=== PATIENT | female | born 1960 | race Caucasian/White ===

== ENCOUNTER → 2020-04-20 06:24 | Outpatient (CLI) | payer MEDICARE, SELFPAY ==
[2020-04-20 19:10] LABS: SARS-CoV-2 RNA PCR Negative
== END ==
PROVIDERS: Family Provider Family Medicine; PCP Family Medicine; Visit Provider Internal Medicine Gastroenterology
DX: Z01.812 Encounter for preprocedural laboratory examination (principal); Z20.822 Contact with and (suspected) exposure to COVID-19
CPT/HCPCS: C9803; U0003; U0005

== ENCOUNTER 2020-04-24 01:14 | Day surgery (SDC) | payer MEDICARE, SELFPAY ==
[2020-04-01 11:57] VITALS: BMI 34.8
[2020-04-24 06:44] VITALS: BP 143/84; PULSE 73; RESP 20; TEMP 36.7; O2SAT 98; BMI 34.4
[2020-04-24] MEDS: LACTATED RINGERS 1,000 ML 150 ML IV CONT (06:54)
--- NOTE | 2020-04-24 07:23 | WPDANESEPPF ---
Anes - Initial Pre Proc Eval Procedure: Operation Date: 04/24/20 08:00 Proposed Procedures p Screening Colonoscopy - Jay Dickinson MD Date/Time: 04/24/20 07:23 Surgeon: Jay Dickinson MD Pre Op Diagnosis: Neoplasm Screening Patient Data Age: 59 Gender: F Height: 5 ft 5 in Weight: 93.8 kg Last Vital Signs Temp 98.1 F 04/24/20 06:44 Pulse 73 04/24/20 06:44 Resp 20 04/24/20 06:44 BP 143/84 H 04/24/20 06:44 Pulse Ox 98 04/24/20 06:44 Allergies Allergy/AdvReac Type Severity Reaction Status Date / Time hydromorphone Allergy Unknown Rash Verified 04/24/20 06:43 terbinafine Allergy Unknown Rash Verified 04/24/20 06:43 Home Medications Medication Instructions Recorded Confirmed Type calcium carbonate 600 mg calcium 600 mg PO DAILY 02/02/19 04/09/20 History (1,500 mg) tablet cinnamon bark 500 mg capsule 1,000 mg PO DAILY cap 02/02/19 04/09/20 History bupropion HCl 300 mg 24 hr tablet, 300 mg PO QAM #30 tablet 01/01/20 04/09/20 Rx extended release simvastatin 40 mg tablet 40 mg PO DAILY #30 tablet 02/06/20 04/09/20 Rx escitalopram oxalate 10 mg tablet See Rx Instructions .ROUTE 03/11/20 04/09/20 Rx .COMPLEX #90 tablet aspirin 325 mg PO DAILY 04/01/20 04/09/20 History gabapentin 1,000 mg PO BID 04/01/20 04/09/20 History loratadine [Claritin] 10 mg PO DAILY 04/01/20 04/09/20 History triamcinolone acetonide 0.05 % 1 applic TOPICAL DAILY #15 g 04/02/20 04/09/20 Rx topical ointment hydrocodone 5 mg-acetaminophen 325 1 - 2 tablet PO Q4-6H PRN #180 04/18/20 Rx mg tablet tablet sodium,potassium,mag sulfates 17.5 See Rx Instructions PO .COMPLEX 04/18/20 Rx gram-3.13 gram-1.6 gram oral soln #354 ml Patient hx anesthesia problems: none Family hx anesthesia problems: none PMFSH Past Medical History Medical History BMI 33.0-33.9,adult BMI 34.0-34.9,adult Decreased libido Depression GERD (gastroesophageal reflux disease) Heart attack Heart disease Neuropathy GRANT (obstructive sleep apnea) GRANT (obstructive sleep apnea) Screen for colon cancer Screening mammogram for high-risk patient Tobacco abuse Surgical History Surgical History H/O heart artery stent S/P bladder repair S/P S/P laparoscopic cholecystectomy S/P partial hysterectomy Family History Family History Mother Cerebrovascular accident Family history of lung cancer Grandparent Diabetes mellitus Father Family history of cardiovascular disease Other Hypertension Social History Social History Smoking packs per day: 1 Smoking cigarettes per day: 20.0 Years smoked: 45 Smoking pack-years: 45.00 Tobacco type: cigarettes Alcohol intake: never Alcohol use details: Seldom Wine Anes - Eval Final PreProcedure Day of Procedure 04/24/20 07:23 Patient weight: obese Heart: regular rate and rhythm Lungs: clear to auscultation Airway: Mallampati scale class III Neurological: alert and oriented Last oral intake: >/= 8 hours ASA classification: III Emergent: no Anesthetic plan: proceed Anesthesia type and monitoring: general GIVS and standard monitoring Informed Consent: The patient's anesthetic plan and its attendant risks and benefits were discussed with the patient/family/POA. Questions were solicited and answers provided to the satisfaction of the patient/family/POA.
--- NOTE | 2020-04-24 07:58 | PM.HPGS ---
History of Present Illness History of Present Illness Consent: Risks, benefits, and alternatives have been discussed and questions answered. Patient agrees to proceed with procedure. Chief complaint: Neoplasm Screening Narrative: Karen Stuart is a 59 year old female with intermittent loose stools mostly after eating for a year, had GB removed 20 years ago. It is not bad for her to take a med. This is her first colonoscopy Review of Systems Constitutional: Constitutional: Denies headache(s) and Denies weakness Eyes: Eyes: Denies blurry vision ENT: Reports Normal hearing present, Denies headache(s) and Denies neck pain Cardiovascular: Cardiovascular: Denies chest pain and Denies dyspnea Respiratory: Respiratory: Denies dyspnea Gastrointestinal: Gastrointestinal: Reports no additional gastrointestinal complaints Genitourinary: Genitourinary: Denies dysuria Musculoskeletal: Musculoskeletal: Denies neck pain Integumentary/Breasts: Skin/Breast: Denies dry skin Neurologic: Reports Normal hearing present, Denies headache(s) and Denies weakness Psychiatric: Psychiatric: Denies anxiety Endocrine: Endocrine: Denies change in body appearance Hematologic/Lymphatic: Hematologic/Lymphatic: Denies easy bleeding Allergic/Immunologic: Allergic/Immunologic: Denies urticaria PMFSH Past Medical History Medical History BMI 33.0-33.9,adult BMI 34.0-34.9,adult Decreased libido Depression GERD (gastroesophageal reflux disease) Heart attack Heart disease Neuropathy GRANT (obstructive sleep apnea) GRANT (obstructive sleep apnea) Screen for colon cancer Screening mammogram for high-risk patient Tobacco abuse Surgical History Surgical History H/O heart artery stent S/P bladder repair S/P S/P laparoscopic cholecystectomy S/P partial hysterectomy Family History Family History Mother Cerebrovascular accident Family history of lung cancer Grandparent Diabetes mellitus Father Family history of cardiovascular disease Other Hypertension Social History Social History Smoking packs per day: 1 Smoking cigarettes per day: 20.0 Years smoked: 45 Smoking pack-years: 45.00 Tobacco type: cigarettes Alcohol intake: never Alcohol use details: Seldom Wine Meds Home Medications and Allergies Home Medications Medication Instructions Recorded Confirmed Type calcium carbonate 600 mg calcium 600 mg PO DAILY 02/02/19 04/09/20 History (1,500 mg) tablet cinnamon bark 500 mg capsule 1,000 mg PO DAILY cap 02/02/19 04/09/20 History bupropion HCl 300 mg 24 hr tablet, 300 mg PO QAM #30 tablet 01/01/20 04/09/20 Rx extended release simvastatin 40 mg tablet 40 mg PO DAILY #30 tablet 02/06/20 04/09/20 Rx escitalopram oxalate 10 mg tablet See Rx Instructions .ROUTE 03/11/20 04/09/20 Rx .COMPLEX #90 tablet aspirin 325 mg PO DAILY 04/01/20 04/09/20 History gabapentin 1,000 mg PO BID 04/01/20 04/09/20 History loratadine [Claritin] 10 mg PO DAILY 04/01/20 04/09/20 History triamcinolone acetonide 0.05 % 1 applic TOPICAL DAILY #15 g 04/02/20 04/09/20 Rx topical ointment hydrocodone 5 mg-acetaminophen 325 1 - 2 tablet PO Q4-6H PRN #180 04/18/20 Rx mg tablet tablet sodium,potassium,mag sulfates 17.5 See Rx Instructions PO .COMPLEX 04/18/20 Rx gram-3.13 gram-1.6 gram oral soln #354 ml Allergies Allergy/AdvReac Type Severity Reaction Status Date / Time hydromorphone Allergy Unknown Rash Verified 04/24/20 06:43 terbinafine Allergy Unknown Rash Verified 04/24/20 06:43 Vital Signs Vital Signs - 24 hr 04/24/20 06:44 Temperature 98.1 F Pulse Rate 73 Respiratory Rate 20 Blood Pressure 143/84 H Pulse Oximetry 98 Exam Const: General: comfortable and no acute distre
[2020-04-24 08:25] VITALS: BP 91/48; PULSE 65; RESP 18; O2SAT 93
[2020-04-24 08:35] VITALS: BP 94/54; PULSE 64; RESP 18; O2SAT 95
[2020-04-24 08:45] VITALS: BP 113/57; PULSE 68; RESP 20; O2SAT 96
== END 2020-04-24 09:06 | disposition home or self-care (01) ==
PROVIDERS: Family Provider Family Medicine; PCP Family Medicine; Visit Provider Internal Medicine Gastroenterology
PROC: 0DJD8ZZ Inspection of Lower Intestinal Tract, Via Natural or Artificial Opening Endoscopic (ICD-10-PCS; CPT 45378; principal; 2020-04-24 08:00)
DX: Z12.11 Encounter for screening for malignant neoplasm of colon (principal); K58.0 Irritable bowel syndrome with diarrhea; D12.0 Benign neoplasm of cecum; D12.2 Benign neoplasm of ascending colon; D12.8 Benign neoplasm of rectum; K21.9 Gastro-esophageal reflux disease without esophagitis; I25.2 Old myocardial infarction; G90.9 Disorder of the autonomic nervous system, unspecified; G47.33 Obstructive sleep apnea (adult) (pediatric); F17.210 Nicotine dependence, cigarettes, uncomplicated; F32.9 Major depressive disorder, single episode, unspecified; Z95.5 Presence of coronary angioplasty implant and graft; Z90.49 Acquired absence of other specified parts of digestive tract; Z90.711 Acquired absence of uterus with remaining cervical stump; K64.8 Other hemorrhoids
CPT/HCPCS: 45385; 45380; 88305; C9803; J7120; U0003; U0005

== ENCOUNTER 2020-04-25 13:49 | Outpatient (CLI) | payer MEDICARE, SELFPAY ==
--- NOTE | ~2020-04-25 | XR_ITS ---
EXAMINATION: XR cervical spine 4-5V DATE: 04/25/2020 15:00 INDICATION: Neck pain. TECHNIQUE: 5 views of cervical spine were obtained. COMPARISON: None. FINDINGS: There is 4 degrees levocurvature of cervical spine. Vertebral body heights and intervertebr al disc heights are normal. There is multilevel mild facet joint osteoarthritis. No central canal lisa nosis or prevertebral soft tissue swelling. IMPRESSION: 1. Mild cervical spondylosis. Reviewed, dictated and finalized at location A. LITIES FLIGHT CHECK PILOT
--- NOTE | ~2020-04-25 | XR_ITS ---
EXAMINATION: XR lumbar spine 6V w bending DATE: 04/25/2020 15:00 INDICATION: Lumbar neuropathy. TECHNIQUE: 9 views of lumbar spine including flexion and extension views were obtained. COMPARISON: CT abdomen and pelvis 07/30/2015 FINDINGS: There is 13 degrees levoscoliosis of thoracolumbar spine. There are changes of anterior fus ion procedure at L5-S1 with interbody device and anterior plate and screws. There is 2 mm anterolisth esis of L4 on L5. The spine is hypomobile with flexion and extension. Vertebral body heights are norm al. There is mildly decreased disc height at L4-L5. There is severe bilateral facet joint osteoarthri tis at L4-L5. IMPRESSION: 1. Mild lumbar spondylosis. 2. Anterior fusion procedure at L5-S1. 3. Thoracolumbar levoscoliosis. Reviewed, dictated and finalized at location A. ING TELEGRAM PERFORMER
== END 2020-04-25 13:50 ==
LOC: MICIMG 13:50
PROVIDERS: PCP Family Medicine; Visit Provider Family Medicine
DX: M47.25 Other spondylosis with radiculopathy, thoracolumbar region (principal); M48.05 Spinal stenosis, thoracolumbar region; Z98.1 Arthrodesis status; M41.9 Scoliosis, unspecified; M47.23 Other spondylosis with radiculopathy, cervicothoracic region; M48.03 Spinal stenosis, cervicothoracic region
CPT/HCPCS: 72050; 72114

== ENCOUNTER 2020-05-07 08:30 | Outpatient (CLI) | payer MEDICARE, SELFPAY ==
--- NOTE | ~2020-05-07 | DEXA_ITS ---
Bone Density Report Name: Karen Stuart Age: 59 Sex: Female Ethnicity: White Date of : 1960 Indication: postmenopausal; hysterectomy; Referring Provider: Genia Levin Study: Bone densitometry was performed. Exam Date: May 07, 2020 Accession number: [id number] Bone Density: Region BMD T-score Z-score Classification AP Spine (L1-L4) 0.800 -2.2 -1.0 Osteopenia Femoral Neck (Left) 0.694 -1.4 -0.2 Osteopenia Total Hip (Left) 0.728 -1.8 -0.9 Osteopenia Total Hip Bilateral Avg 0.679 -2.2 -1.3 Osteopenia Femoral Neck (Right) 0.575 -2.5 -1.3 Osteoporosis Total Hip (Right) 0.629 -2.6 -1.7 Osteoporosis World Health Organization criteria for BMD impression classify patients as: Normal (T-score at or above -1.0), Osteopenia (T-score between -1.0 and -2.5), or Osteoporosis (T-score at or below -2.5). 10-year Fracture Risk: FRAX not reported because: Some T-score for Spine Total or Hip Total or Femoral Neck at or below -2.5 Clinical Information Provided by Patient: Smokes Has used the following medications: Calcium Has the following medical conditions: Hysterectomy Patient maximum height was 65 Menopause Age: 48 No regular weight bearing exercise Does not regularly consume dairy products Drinks caffeinated beverages Onset of menses at age 15 Number of children 1 Impression: The patient has osteoporosis, based on the Right Total Hip T-score. The patient has risk factors, including: smoking. Discussion: INCREASED RISK OF FRACTURE. BONE DENSITY IS UNDESIRABLY LOW AT ONE OR MORE SKELETAL SITES, CONSISTENT WITH POSTMENOPAUSAL OSTEOPOROSIS. This patient's lowest T-score meets the World Health Organization's (WHO) criteria for osteoporosis at one or more sites (T-score -2.5 or below). In untreated patients, the risk of osteoporotic fracture increases approximately two-fold for each 1.0 SD decrease in T-score. Low bone density is not the only risk factor for fracture; also consider factors such as patient's age, frailty or poor health, risk of falling, risk of injury, previous osteoporotic fracture, family history of osteoporosis, cigarette smoking, low body weight, etc. Not everyone with low bone mineral density has osteoporosis; osteomalacia and other metabolic bone disorders should also be considered. Patients who have osteoporosis should be evaluated for specific diseases and conditions (secondary causes) that may cause or contribute to bone loss. The [place] [employer]ocrinologists (AACE) and National Osteoporosis Foundation (NOF) recommend pharmacologic intervention for all postmenopausal women whose T-score is in this range. The patient should follow a healthful lifestyle (good nutrition with adequate calcium and vitamin D, and appropriate weight-bearing exercise). Follow-Up: Consider a repeat BMD an
--- NOTE | ~2020-05-07 | MM_ITS ---
EXAMINATION: MM screening quita BI w bertha HISTORY: Screening mammogram TECHNIQUE: Craniocaudal and mediolateral oblique 3-D tomosynthesis images were obtained and synthetic 2-D images were generated. CAD analysis was submitted and interpreted. COMPARISON: No prior mammogram is available for comparison at this institution. BREAST PARENCHYMAL COMPOSITION: There are scattered areas of fibroglandular density. FINDINGS: There is no evidence of suspicious mass, calcification, or architectural distortion to sugg est malignancy in either breast. There has been no suspicious interval change. IMPRESSION: 1. No mammographic evidence of malignancy. 2. Recommend routine screening mammography in one year. BI-RADS Category 1: Negative Reviewed, dictated and finalized at location A. R AND DELIVERY NURSE
== END 2020-05-07 08:31 | disposition home or self-care (01) ==
PROVIDERS: Family Provider Family Medicine; PCP Family Medicine; Visit Provider Physician Assistant Medical
DX: Z12.31 Encounter for screening mammogram for malignant neoplasm of breast (principal); Z78.0 Asymptomatic menopausal state; M85.89 Other specified disorders of bone density and structure, multiple sites; M81.0 Age-related osteoporosis without current pathological fracture
CPT/HCPCS: 77063; 77067; 77080

== ENCOUNTER 2020-08-01 11:33 | Outpatient (CLI) | payer MEDICARE, SELFPAY ==
--- NOTE | ~2020-08-01 | XR_ITS ---
EXAMINATION: XR abdomen/kub 1V EXAM DATE: 08/01/2020 11:48 INDICATION: Abdominal pain. Sharp pain in central lower lumbar radiates around to anterior, hx of hys terectomy, bladder lift surgery, cholecystectomy 's, 2 spinal fusions 2007, hx chronic low back harsh n, kub to R/O kidney stones. TECHNIQUE: Frontal projection of the upper abdomen, frontal projection lower abdomen/pelvis for inter pretation. There is no prior study for comparison. FINDINGS: There are cholecystectomy clips. There is moderate amount of colonic stool and gas. No small bowel dilation, nonobstructive bowel gas pattern. Calcifications in the pelvis are believed to be phleboliths. There are no suspicious calcifications identified. There is no organomegaly suspe cted. Mild lumbar dextroscoliosis. L5-S1 anterior fusion plate. IMPRESSION: Moderate amount of colonic stool. Reviewed, dictated and finalized at location B.
== END 2020-08-01 11:34 ==
PROVIDERS: PCP Family Medicine; Visit Provider Nurse Practitioner Family
DX: R10.9 Unspecified abdominal pain (principal); M54.5 Low back pain
CPT/HCPCS: 74018

== ENCOUNTER → 2020-09-09 06:47 | Outpatient (CLI) | payer MEDICARE, SELFPAY ==
[2020-09-09 16:50] LABS: SARS-CoV-2 RNA PCR Negative
== END ==
PROVIDERS: PCP Family Medicine; Visit Provider Nurse Practitioner Family
DX: R68.89 Other general symptoms and signs (principal); Z20.822 Contact with and (suspected) exposure to COVID-19
CPT/HCPCS: C9803; U0003; U0005

== ENCOUNTER 2020-09-30 16:10 | Outpatient (CLI) | payer MEDICARE, SELFPAY ==
--- NOTE | ~2020-09-30 | XR_ITS ---
XR hand RT min 3V DATE: 09/30/2020 16:46 INDICATION: Right hand pain TECHNIQUE: 3 views COMPARISON: None FINDINGS: Diffuse osteopenia. There is osteoarthritic change at the interphalangeal joints. No fracture or dislocation, periosteal reaction or bone destruction is detected. IMPRESSION: Osteopenia Osteoarthritic change at the interphalangeal joints Reviewed, dictated and finalized at location B.
== END 2020-09-30 16:11 ==
PROVIDERS: PCP Family Medicine; Visit Provider Nurse Practitioner Family
DX: M79.641 Pain in right hand (principal); M85.841 Other specified disorders of bone density and structure, right hand
CPT/HCPCS: 73130

== ENCOUNTER 2020-10-10 13:37 | Outpatient (CLI) | payer MEDICARE, SELFPAY ==
--- NOTE | ~2020-10-10 | XR_ITS ---
XR hip BI 2V w AP pelvis DATE: 10/10/2020 13:52 INDICATION: Chronic right hip pain TECHNIQUE: AP pelvis. AP and lateral views of each hip COMPARISON: 11/08/2015 left hip FINDINGS: Status post anterior spinal fusion at L5-S1. The pubic symphysis and sacroiliac joints are intact. No pelvic fracture or bone destruction is evide nt. No fracture, dislocation, avascular necrosis or bone destruction of either hip is evident. Hip joint spaces appear symmetric and relatively preserved. IMPRESSION: Status post anterior fusion at L5-S1; otherwise unremarkable examination Reviewed, dictated and finalized at location A. IMPRESSION: Status post anterior fusion at L5-S1; otherwise unremarkable examin ation
== END 2020-10-10 13:38 | disposition home or self-care (01) ==
PROVIDERS: PCP Family Medicine; Visit Provider Family Medicine
DX: M25.551 Pain in right hip (principal); M25.552 Pain in left hip; Z98.1 Arthrodesis status
CPT/HCPCS: 73521

== ENCOUNTER 2021-01-07 01:09 | Day surgery (SDC) | payer MEDICARE, SELFPAY ==
[2020-12-30 10:38] VITALS: BMI 34.7
[2021-01-07 09:34] VITALS: BP 113/70; PULSE 70; RESP 18; TEMP 36.1; O2SAT 97
--- NOTE | 2021-01-07 09:37 | WPDANESEPPF ---
Anes - Initial Pre Proc Eval Procedure: Operation Date: 01/07/21 10:45 Proposed Procedures p Esophagogastroduodenoscopy - Jay Dickinson MD Date/Time: 01/07/21 09:37 Surgeon: Jay Dickinson MD Pre Op Diagnosis: abdominal pain, nausea Patient Data Age: 60 Gender: F Height: 1.65 m Weight: 95.7 kg Last Vital Signs Temp 36.1 C L 01/07/21 09:34 Pulse 70 01/07/21 09:34 Resp 18 01/07/21 09:34 BP 113/70 01/07/21 09:34 Pulse Ox 97 01/07/21 09:34 Allergies Allergy/AdvReac Type Severity Reaction Status Date / Time hydromorphone Allergy Unknown Rash Verified 01/07/21 09:30 terbinafine Allergy Unknown Rash Verified 01/07/21 09:30 Home Medications Medication Instructions Recorded Confirmed Type loratadine [Claritin] 10 mg PO DAILY 04/01/20 01/07/21 History aspirin 81 mg tablet,delayed 81 mg PO DAILY 05/28/20 12/30/20 History release diclofenac sodium 1 % topical gel 2 g TOPICAL QID #500 g 05/28/20 12/30/20 Rx rosuvastatin 40 mg tablet 40 mg PO DAILY 05/28/20 12/30/20 History denosumab 60 mg/mL subcutaneous 60 mg SUBCUT [id number] #1 ml 07/02/20 12/30/20 Rx syringe triamcinolone acetonide 0.5 % 1 applic TOPICAL BID PRN #15 g 07/03/20 12/30/20 Rx topical ointment lisinopril 40 mg tablet 40 mg PO DAILY 07/31/20 01/07/21 History calcium carbonate-vitamin D3 600 1 tablet PO DAILY #90 tablet 09/30/20 01/07/21 Rx mg (1,500 mg)-800 unit tablet gabapentin 300 mg capsule 600 mg PO BID #360 cap 09/30/20 01/07/21 Rx hydrocodone 5 mg-acetaminophen 325 1 - 2 tablet PO Q4-6H PRN #180 12/16/20 12/30/20 Rx mg tablet tablet escitalopram oxalate 10 mg PO DAILY 12/30/20 12/30/20 History bupropion HCl 300 mg 24 hr tablet, 300 mg PO QAM #30 tablet 01/06/21 01/07/21 Rx extended release Patient hx anesthesia problems: none Family hx anesthesia problems: none Results Review: All pre-operative results and documents have been reviewed as part of the pre-operative evaluation. [facility] Past Medical History Medical History (Updated 01/07/21 @ 09:40 by Balbir Ghotra MD) Adenomatous colon polyp Bilateral cataracts BMI 33.0-33.9,adult BMI 34.0-34.9,adult BMI 34.0-34.9,adult BMI 35.0-35.9,adult BMI 36.0-36.9,adult BMI over 35 CAD in [place] artery Chronic diarrhea Chronic narcotic use Constipation due to opioid therapy Decreased libido Depression Dermatitis Elevated glucose Essential (primary) hypertension Exocrine pancreatic insufficiency GERD (gastroesophageal reflux disease) Heart attack Heart disease Hip pain, bilateral Low back pain Low vitamin D level Lymphocytosis MDD (major depressive disorder), single episode, moderate Medial epicondylitis, left elbow Mixed hyperlipidemia Neuropathy GRANT (obstructive sleep apnea) GRANT (obstructive sleep apnea) Osteoporosis Pre-diabetes Right wrist pain Screen for colon cancer Screening mammogram for high-risk patient Tobacco abuse Surgical History Surgical History H/O heart artery stent H/O spinal fusion S/P bladder repair S/P S/P laparoscopic cholecystectomy S/P partial hysterectomy Family History Family History Mother Cerebrovascular accident Family history of lung cancer Grandparent Diabetes mellitus Father Family history of cardiovascular disease Sibling Cerebral palsy Other Hypertension Social History Social History Smoking packs per day: 0.75 Smoking cigarettes per day: 15.0 Years smoked: 46 Smoking pack-years: 34.50 Smoking status: Current every day smoker Tobacco type: cigarettes Second hand tobacco smoke exposure: No Alcohol intake: never Drinks per week: 0 Alcohol use details: occasional wine Substance use: never Substance use type: opiates Other substanc
[2021-01-07] MEDS: LACTATED RINGERS 1,000 ML 150 ML IV CONT (09:45)
--- NOTE | 2021-01-07 11:19 | WPDHPUPDATE1 ---
History and Physical Update Update Date/Time: 01/07/21 11:19 History and Physical has been reviewed, including an updated exam of the patient. There are NO changes in the patient's condition. Risks, benefits, and alternatives have been discussed and questions answered. Patient agrees to proceed with procedure.
[2021-01-07 11:32] VITALS: BP 81/58; PULSE 61; RESP 18; O2SAT 96
[2021-01-07 11:42] VITALS: BP 118/64; PULSE 72; RESP 22; O2SAT 97
[2021-01-07 11:52] VITALS: BP 122/72; PULSE 61; RESP 15; O2SAT 98
== END 2021-01-07 12:14 | disposition home or self-care (01) ==
PROVIDERS: PCP Family Medicine; Visit Provider Internal Medicine Gastroenterology
PROC: 0DJ08ZZ Inspection of Upper Intestinal Tract, Via Natural or Artificial Opening Endoscopic (ICD-10-PCS; CPT 43235; principal; 2021-01-07 10:45)
DX: K29.70 Gastritis, unspecified, without bleeding (principal); K21.9 Gastro-esophageal reflux disease without esophagitis; I25.10 Atherosclerotic heart disease of native coronary artery without angina pectoris; K59.03 Drug induced constipation; I11.9 Hypertensive heart disease without heart failure; K86.81 Exocrine pancreatic insufficiency; E55.9 Vitamin D deficiency, unspecified; E78.2 Mixed hyperlipidemia; G47.33 Obstructive sleep apnea (adult) (pediatric); M81.0 Age-related osteoporosis without current pathological fracture; R73.03 Prediabetes; F32.1 Major depressive disorder, single episode, moderate; I25.2 Old myocardial infarction; Z98.1 Arthrodesis status; Z95.5 Presence of coronary angioplasty implant and graft; F17.210 Nicotine dependence, cigarettes, uncomplicated; Z79.891 Long term (current) use of opiate analgesic; E66.9 Obesity, unspecified; Z79.82 Long term (current) use of aspirin; Z68.35 Body mass index [BMI] 35.0-35.9, adult
CPT/HCPCS: 43239; 88305; J2704; J7120

== ENCOUNTER 2021-01-16 08:18 | Outpatient (CLI) | payer MEDICARE, SELFPAY ==
--- NOTE | ~2021-01-16 | CT_ITS ---
EXAMINATION: CT abdomen pelvis w con DATE: 01/16/2021 09:05 INDICATION: Low abdominal pain. TECHNIQUE: Computed tomography (CT) of the abdomen and pelvis was performed with 100 mL Omnipaque 350 intravenous contrast. Automated exposure control and iterative reconstruction technique were employe d. The dose-length product was 926.16 mGy-cm. COMPARISON: CT abdomen and pelvis 07/30/2015 FINDINGS: The visualized portions of the lung bases demonstrate a calcified right lower lobe nodule, consistent with old granulomatous disease. No pleural effusion. The heart size is normal. No pericard ial effusion. There is a small sliding hiatal hernia. There are cysts in the liver measuring up to 8 mm. There is chronic mild intrahepatic biliary duct dilatation. The common duct is dilated to 15 mm, unchanged from 07/30/2015. There are changes of cholecystectomy. The spleen is normal. Pancreas divisu m is noted. The adrenal glands and kidneys are normal. There are no dilated loops of bowel. The appen dulce maria is normal. There are no pathologically enlarged lymph nodes. There is no free intraperitoneal flu id. There is calcified atherosclerosis of the aorta and many of the other arteries. There is severe s tenosis of right common iliac artery origin. There are changes of anterior fusion procedure at L5-S1. There is mild thoracolumbar spondylosis. IMPRESSION: 1. 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 Reviewed, dictated and finalized at location [facility]. [employer] IMPRESSION: 1. 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
[2021-01-16 08:53] LABS: Estimated Glomerular Filt Rate > 60
== END 2021-01-16 08:19 | disposition home or self-care (01) ==
LOC: ANHIMG 08:23
PROVIDERS: PCP Family Medicine; Visit Provider Internal Medicine Gastroenterology
DX: R10.30 Lower abdominal pain, unspecified (principal); K52.9 Noninfective gastroenteritis and colitis, unspecified; I70.8 Atherosclerosis of other arteries
CPT/HCPCS: 74177; Q9967

== ENCOUNTER 2021-01-29 13:00 | Outpatient (RCR) | payer MEDICARE, SELFPAY ==
--- NOTE | 2020-11-07 13:50 | OTOPEVAL ---
OCCUPATIONAL THERAPY INITIAL EVALUATION REPORT 11/07/20 Carol presents today ~3 months following injury to the dorsal buckley of the right middle finger. She reports that the tendon no longer is subluxing, but she continues to have pain and swelling that restricts her ability to use her right hand. Today a relative motion orthosis was fabricated to hold the MCP joint of the right middle finger in extension relative to the other MCP joints. A compression glove was also issued to help with swelling. Patient reports pain relief from just 10 minutes of wear with the glove and splint. Recommend that she follows up 1x/week for 4 weeks to assess the efficacy of this intervention as well as progressing her HEP as tolerated. Thank you for referring Karen [facility] to [facility] The patient is scheduled to be seen for therapy?1x/week for 4 weeks. Please review, sign, date and return this plan of care ARIS. I agree with and certify that the following plan of care is medically necessary. Referring Physician Date Referring Provider: Froylan Urena MD *OT Outpatient Evaluation Outpatient Past Medical History Past Medical History Source of Past Medical History Recalled from Previous Visit, Confirmed with Patient/Family Neurological History Hx Migraine Yes Hx Other Neurological Disorders Yes: Neuropathy Cardiovascular History Hx Coronary Stent Yes: x2 Hx Hypercholesterolemia Yes Hx Myocardial Infarction Yes Respiratory History Hx Sleep Apnea Yes: Does not use CPAP Gastrointestinal History Hx Cholecystectomy Yes Hx Gastroesophageal Reflux Disease Yes Hx Hernia Yes: Umbilical Hx Other Gastrointestinal Disorders Yes: Diarrhea, Constipation, Lower Abdominal Pain Genitourinary History Hx Bladder Surgery Yes: Lifted Musculoskeletal History Hx Arthritis Yes: Back Hx Back Pain Yes Hx Orthopedic Surgery Yes: L4- L5 Fusion Hematological History Hx Hematological Disorders No Significant History Endocrine History Hx Other Endocrine Disorders Yes: Goiter HEENT History Hx Sinus Problems Yes Integumentary History Hx Skin Disorders No Significant History Reproductive History Hx Section Yes Hx Hysterectomy Yes Hx Tubal Ligation Yes Psychosocial History Hx Depression Yes Pain History Has Past Pain Affected Your Daily Life Yes History of Long-Term Prescription Pain Yes Medication Use (Opiates) Anesthesia History Hx Post-Op Nausea/Vomiting Yes Other History Hx Implanted Device Yes: Heart Stents Evaluation Information Problem Diagnosis Extensor buckley rupture right 3rd MCP joint Onset 08/29/20 Subjective Information Patient reports functional Query Text:As Reported By Patient/ limitations with using the Family
--- NOTE | 2020-11-15 12:34 | PCOTNOTE ---
Patient called & cancelled scheduled appointment this date due to waking up with a sore throat.
--- NOTE | 2020-11-28 12:46 | PTOPEVAL ---
PHYSICAL THERAPY EVALUATION AND PLAN OF CARE 11-28-20 Thank you for referring Karen Stuart to [facility], for the diagnosis of lumbar radiculopathy.? Carol is scheduled to be seen for therapy? 2 x/week for 5 weeks. Her treatment plan includes aquatic therapy, for the buoyancy effects of the water and ease of movement for strengthening and flexibility. Please review, sign, date and return this plan of care ARIS. I agree with and certify that the following plan of care is medically necessary. Referring Physician Date Referring Provider: Magdy Alexander MD PT Outpatient Evaluation Document 11/28/20 11:05 FAB (Rec: 11/28/20 12:05 FAB [id number]) Past Medical History Source of Past Medical History Recalled from Previous Visit, Confirmed with Patient/Family Neurological History Hx Other Neurological Disorders Yes: Neuropathy in legs Cardiovascular History Hx Coronary Stent Yes: x2 Hx Hypercholesterolemia Yes Hx Myocardial Infarction Yes Respiratory History Hx Sleep Apnea Yes: Does not use CPAP Hx Other Respiratory Disorders Yes: smoker Gastrointestinal History Hx Cholecystectomy Yes Hx Gastroesophageal Reflux Disease Yes Hx Hernia Yes: ? have hernia or not- to see dr in few weeks Hx Other Gastrointestinal Disorders Yes: Diarrhea, Constipation, Lower Abdominal Pain Genitourinary History Hx Bladder Surgery Yes Musculoskeletal History Hx Arthritis Yes: neck pain Hx Back Pain Yes Hx Orthopedic Surgery Yes: back surg x3- discectomy x 2, and L4- L5 Fusion 2006 Hx Other Musculoskeletal Disorders Yes: R wrist pain; all joints hurt every morning when wake up Hematological History Hx Hematological Disorders No Significant History Endocrine History Hx Other Endocrine Disorders Yes: Goiter HEENT History Hx Sinus Problems Yes Integumentary History Hx Skin Disorders No Significant History Reproductive History Hx Section Yes Hx Tubal Ligation Yes Psychosocial History Hx Depression Yes Pain History Has Past Pain Affected Your Daily Life Yes History of Long-Term Prescription Pain Yes Medication Use (Opiates) Other History Hx Implanted Device Yes: Heart Stents Hx Other Medical Conditions Yes: have had covid vaccine Evaluation Information Problem Diagnosis lumbar radiculopathy Onset August 2020 Subjective Information chronic back pain, gradual Query Text:As Reported By Patient/ increase in pain; no recent Family injury or trauma to back; Diagnostic Tests
--- NOTE | 2020-12-05 13:11 | OTOPEVAL ---
OCCUPATIONAL THERAPY RE-EVALUATION REPORT AND DISCHARGE SUMMARY 12/05/20 Carol presents for OT re-evaluation today after wearing a custom fabricated relative motion orthosis x4 weeks to support the MCP joint of the right middle finger. She has made excellent progress with pain reduction, noting pain at worst to only 2/10 compared to 8/10 at the initial evaluation. She has some residual weakness for which a gentle strengthening program was issued. Recommend that she continue to wear the splint with hand use for another month and to complete strengthening on pain-free days only. She is currently independent with all materials and is in agreement with discharge. Discharging today with patient independent in HEP. Thank you for referring Karen Stuart to [facility]. Please review, sign, date and return this D/C Note ARIS. I agree with and certify that the following plan of care is medically necessary. Referring Physician Date Referring Provider: Froylan Urena MD *OT Outpatient Re-Evaluation Start: 11/07/20 12:32 Diagnosis Extensor buckley rupture right 3rd MCP joint Onset 08/29/20 Subjective Information Patient reports improvements Query Text:As Reported By Patient/ since beginning therapy 4 Family weeks ago. States she has no pain with starting her car and with her ROM exercises. Notes slight increase in pain at the radial aspect of the MCP joint particularly with opposition. Pain Assessment Timing of Pain Assessment Timing of Pain Assessment Re-assessment Pain Scale Pain Scale Used Numeric (1 - 10) Self Report Pain Assessment Right Finger, Middle Reported Pain Level 0 Lowest Pain Intensity 0 Greatest Pain Intensity 2 Pain Score Pain Score 0: Self Report Additional Pain Score Comments Pain reduced from 4/10 on a daily basis. Upper Extremity Range of Motion Finger Range of Motion Right Finger Range of Motion Comments Active ROM of the right hand and middle finger are WNL. Full fist and hook fist are intact. Lumbricals and interossei intact. No longer has pain or burning with active ROM. Hand Assembler Chassis/Pinch Strength Assessment Hand Left Assembler Chassis Strength (lbs) 61.33 Lateral Pinch Strength (lbs) 13.33 Palmar Pinch Strength (lbs) 8.67 Right Assembler Chassis Strength (lbs) 45.67 Lateral Pinch Strength (lbs) 11.67 Palmar Pinch Strength (lbs) 5 Hand Assembler Chassis/Pinch Strength Comments (+) pain with palmar pinching, rated at 2/10. Splint/Brace/Cast Assessment Splint and Bracing Assessment Ri
--- NOTE | 2020-12-18 13:21 | PCPTNOTE ---
Patient called & cancelled scheduled appointment this date due to having a bad headache and not feeling well.
--- NOTE | 2020-12-30 12:17 | PCPTNOTE ---
Patient called & cancelled scheduled appointment this date due to having a to attend.
--- NOTE | 2021-01-01 14:25 | PTOPEVAL ---
PHYSICAL THERAPY RE-EVALUATION AND UPDATED PLAN OF CARE 01-01-21 Refer to the clinical summary below for her status today, compared to the initial evaluation. The goals were partially achieved. PT is to continue 2x/week for 4 weeks. Thank you for referring Karen Stuart to [facility].? Please review, sign, date and return this updated plan of care [facility]. I agree with and certify that the following plan of care is medically necessary. Referring Physician Date Referring Provider: Magdy Alexander MD Document 01/01/21 13:35 FAB (Rec: 01/01/21 14:24 FAB [id number]) Assessment Status Re-evaluation Subjective Information Carol reports: like the pool Query Text:As Reported By Patient/ therapy; with land therapy-- Family massage helped get the knot out of the back; have stim unit at home, but need to get some pads; is doing her home exercises; see dr next week for follow up; Pain Assessment Timing of Pain Assessment Timing of Pain Assessment Assessment Pain Scale Pain Scale Used Numeric (1 - 10) Self Report Pain Assessment Bilateral Back Reported Pain Level 0 Pain Description Aching,Sharp Pain Frequency Chronic,Intermittent Other Pain Description R > L lumbar; R LE to toes- with activity- walk Lowest Pain Intensity 0 Greatest Pain Intensity 9 Pain Aggravating Factors Exercise/Activity,Walking Other Pain Aggravating Factors walking tolerance varies 5- 20 min Pain Behaviors Anxious,Guarding Pain Score Pain Score 0: Self Report Additional Pain Score Comments Oswestry self assessment functional score of % limitation in activity reports taking vicoden every hours Interventions Used Interventions Used By Clinicians Education,Exercise Pain Relief Interventions Used By Inactivity/Rest,Lying Supine, Patient Medication,Position Change, Sitting Other Alleviating Interventions reports taking vicoden every 6 hours, sometimes take 2 at night for sleep Lower Extremity Range of Motion General Lower Extremity Range of Motion Gross Lower Extremity Range of Motion hamstring length with supine Comments SLR R 50'/L 60' supine piriformis length with hip/knee > 90' stretch R- not reach midline-reports tighter and
--- NOTE | 2021-01-13 09:20 | PCPTNOTE ---
Patient did not show up for scheduled appointment this date. Called and spoke with Pt, she stated to have over slept. Reminded Pt of upcoming appointment on 01/16/21 @ 13:00.
--- NOTE | 2021-01-29 13:46 | PTOPEVAL ---
PHYSICAL THERAPY DISCHARGE 01-29-21 Refer to the clinical summary below, for her status today, compared to the last reevaluation. Discharge PT services. Carol is to continue with her home exercises and monitoring her posture. Thank you for referring Karen Stuart to [facility].? Please review, sign, date and return this Discharge report [facility]. I agree with and certify that the following plan of care is medically necessary. Referring Physician Date Referring Provider: Magdy Alexander MD Document 01/29/21 12:55 FAB (Rec: 01/29/21 13:42 FAB [id number]) Assessment Status Discharge Subjective Information Carol reports: therapy is Query Text:As Reported By Patient/ helping-can walk farther than Family normal, taking less pain pills ; use cane sometimes, was able to walk at [facility] about 45-60 min before leg went numb; had CT of stomach-saw results on pt portal- reports severe stenosis of artery and saw teacher lip reading and he gave me orders for doppler for legs; go see regular dr next week; has joined a fitness center that has a pool; agree to discharge from PT services and continue with her exercises. Pain Assessment Timing of Pain Assessment Timing of Pain Assessment Assessment Pain Scale Pain Scale Used Numeric (1 - 10) Self Report Pain Assessment Bilateral Back Reported Pain Level 0 Pain Description Aching,Numbness,Pulling,Sharp Pain Frequency Chronic,Intermittent Other Pain Description R leg numb to toes and cramping in thigh & groin when walk 45-60 min; Lowest Pain Intensity 0 Greatest Pain Intensity 7 Pain Aggravating Factors Exercise/Activity,Walking Other Pain Aggravating Factors housework, vaccuming, bending forward; in AM, when first get up Pain Behaviors Anxious,Guarding Pain Score Pain Score 0: Self Report Additional Pain Score Comments Oswestry self assessment functional score 36% limitation in activity level; reinforced and discussed self management of pain: heat, position change, stretching, use home TENS unit, monitor
== END 2021-01-30 13:38 | disposition home or self-care (01) ==
LOC: ANHPT 13:00
PROVIDERS: PCP Family Medicine; Referring Provider Family Medicine; Visit Provider Plastic Surgery
DX: S66.312D Strain of extensor muscle, fascia and tendon of right middle finger at wrist and hand level, subsequent encounter (principal)
CPT/HCPCS: 97014; 97018; 97110; 97113; 97140; 97161; 97165; G0283; L3933

== ENCOUNTER 2021-02-09 19:05 | Emergency (ER) | payer MEDICARE, MEDICAID, SELFPAY ==
[2021-02-09 19:17] VITALS: BP 174/89; PULSE 62; RESP 15; TEMP 36.6; O2SAT 97
--- NOTE | 2021-02-09 19:59 | PC.NURSE ---
Pt to INTAKE desk x 2 and reports feeling dizzy and light headed, VSS.
[2021-02-09 21:42] VITALS: BP 144/91; PULSE 63; RESP 17; O2SAT 99
--- NOTE | 2021-02-09 21:43 | PC.NURSE ---
ERP rinsed patients nasal cavity, clots removed, patient tolerated well.
[2021-02-09] MEDS: OXYMETAZOLINE HCL 0.05% NAS 15 ML BTL (*BKC) 1 SPRAY NASAL (21:48)
--- NOTE | 2021-02-09 22:19 | ED.EPISTAXIS ---
HPI - Epistaxis General Chief complaint: Epistaxis Stated complaint: NOSEBLEED Time Seen by Provider: 02/09/21 21:28 History of Present Illness HPI Narrative: Patient is a 52-year-old female who presents to the ER with epistaxis. Sinus congestion for last couple days. Tonight she started having bleeding at 5 PM. It is persisted. She has had large clots coming out both sides and bleeding coming out of her mouth. No fevers or chills or sweats. No history of previous nosebleeds. She is not on any antiplatelet medication or blood thinners. Related Data Home Medications Medication Instructions Recorded Confirmed loratadine [Claritin] 10 mg PO DAILY 04/01/20 01/09/21 aspirin 81 mg tablet,delayed 81 mg PO DAILY 05/28/20 01/09/21 release rosuvastatin 40 mg tablet 40 mg PO DAILY 05/28/20 01/09/21 escitalopram oxalate 10 mg PO DAILY 12/30/20 01/09/21 Allergies Allergy/AdvReac Type Severity Reaction Status Date / Time hydromorphone Allergy Unknown Rash Verified 02/09/21 21:44 terbinafine Allergy Unknown Rash Verified 02/09/21 21:44 Review of Systems Review of Systems: All systems reviewed & are unremarkable except as noted in HPI and below Constitutional: Constitutional: Denies chills, Denies fever(s) and Denies weakness ENT: Reports epistaxis, Reports nasal congestion and Denies sore throat Respiratory: Respiratory: Denies cough, Denies dyspnea and Denies wheezing Gastrointestinal: Gastrointestinal: Denies abdominal pain, Denies nausea and Denies vomiting PMF Past Medical History Medical History Adenomatous colon polyp Bilateral cataracts BMI 33.0-33.9,adult BMI 34.0-34.9,adult BMI 34.0-34.9,adult BMI 35.0-35.9,adult BMI 36.0-36.9,adult BMI over 35 CAD in [place] artery Chronic diarrhea Chronic narcotic use Constipation due to opioid therapy Decreased libido Depression Dermatitis Elevated glucose Essential (primary) hypertension Exocrine pancreatic insufficiency GERD (gastroesophageal reflux disease) Heart attack Heart disease Hip pain, bilateral Low back pain Low vitamin D level Lymphocytosis MDD (major depressive disorder), single episode, moderate Medial epicondylitis, left elbow Mixed hyperlipidemia Neuropathy GRANT (obstructive sleep apnea) GRANT (obstructive sleep apnea) Osteoporosis Pre-diabetes Right wrist pain Screen for colon cancer Screening mammogram for high-risk patient Tobacco abuse Surgical History Surgical History H/O heart artery stent H/O spinal fusion S/P bladder repair S/P S/P laparoscopic cholecystectomy S/P partial hysterectomy Family History Family History Mother Cerebrovascular accident Family history of lung cancer Grandparent No problems noted. Father Family history of cardiovascular disease Sibling Cerebral palsy Other Carcinoma of colon Hypertension Social History Social History Smoking packs per day: 0.75 Smoking cigarettes per day: 15.0 Years smoked: 46 Smoking pack-years: 34.50 Tobacco type: cigarettes Second hand tobacco smoke exposure: No Alcohol intake: never Drinks per week: 0 Alcohol use details: occasional wine Substance use: never Substance use type: opiates Other substance usage details: norco/acetaminophen 2/325mg every 4-6 hours prn Last use: daily Additional living arrangements comments: and son Additional occupation/education comments: disabled Gender identity (if verbalized by the patient): Female Sexual Orientation (if Verbalized by the Patient): Straight or Heterosexual Spiritual care concerns: No Agree to blood products: Yes Exam Narrative: GENERAL: Well-appearing, well-nourished, and in no acute distress. HEAD: Nor
== END 2021-02-09 22:31 | disposition home or self-care (01) ==
PROVIDERS: Emergency Provider Emergency Medicine; PCP Family Medicine
DX: R04.0 Epistaxis (principal); I25.10 Atherosclerotic heart disease of native coronary artery without angina pectoris; I10 Essential (primary) hypertension; K21.9 Gastro-esophageal reflux disease without esophagitis; K86.81 Exocrine pancreatic insufficiency; I25.2 Old myocardial infarction; E55.9 Vitamin D deficiency, unspecified; E78.2 Mixed hyperlipidemia; G62.9 Polyneuropathy, unspecified; M81.0 Age-related osteoporosis without current pathological fracture; R73.03 Prediabetes; G47.33 Obstructive sleep apnea (adult) (pediatric); F32.9 Major depressive disorder, single episode, unspecified; Z86.010 Personal history of colon polyps; Z79.82 Long term (current) use of aspirin; Z95.5 Presence of coronary angioplasty implant and graft; Z98.1 Arthrodesis status; F17.210 Nicotine dependence, cigarettes, uncomplicated
CPT/HCPCS: 99283; A9270

== ENCOUNTER 2021-02-10 10:56 | Observation (INO) | payer MEDICARE, SELFPAY ==
[2021-02-10] VITALS (10 sets, daily range): BP systolic 122–182; BP diastolic 64–99; PULSE 71–81; RESP 16–18; TEMP 36.1; O2SAT 96–99
[2021-02-10 12:04] LABS: Alanine Aminotransferase 17 U/L (4-35); Albumin Level 4.4 g/dL (3.5-5.1); Alkaline Phosphatase 84 U/L (38-126); Anion Gap 10 mmol/L (8-16); Aspartate Amino Transferase 23 U/L (14-36); Bilirubin,Total 0.4 mg/dL (0.2-1.3); Blood Urea Nitrogen 18 mg/dL (7-17); Calcium 10.1 mg/dL (8.4-10.2); Carbon Dioxide 26 mmol/L (22-30); Chloride 101 mmol/L (98-107); Estimated CRCL calculation 99 ml/min; Estimated Glomerular Filt Rate > 60; Glucose 169 mg/dL (65-110); Potassium 3.4 mmol/L (3.4-5.0); Sodium 137 mmol/L (137-145)
--- NOTE | 2021-02-10 12:17 | PC.NURSE ---
applied nasal clamp to patients nose, and provided her with water to rinse mouth
[2021-02-10 12:39] LABS: INR 0.9; Prothrombin Time 11.8 Seconds (11.1-14.7)
[2021-02-10 12:41] LABS: Basophils Absolute Auto 0.1 K/mm3 (0.0-0.1); Basophils Percent Auto 0.5 % (0.2-1.2); Eosinophils Absolute Auto 0.2 K/mm3 (0-0.3); Eosinophils Percent Auto 1.4 % (0-4.4); Hematocrit 44.2 % (37.0-47.0); Hemoglobin 13.6 g/dL (12.0-15.0); Immature Granulocyte Absolute 0.05 K/mm3 (0.00-0.031); Immature Granulocyte Percent A 0.4 % (0-0.5); Lymphocytes Absolute Auto 3.68 K/mm3 (0.9-3.2); Lymphocytes Percent Auto 29.5 % (18.3-44.2); Mean Corpuscular HGB Conc 30.8 g/dl (32-36); Mean Corpuscular Hemoglobin 27.5 pg (26-34); Mean Corpuscular Volume 89.3 fl (80-100); Mean Platelet Volume 11.5 fl (7.4-10.4); Monocytes Absolute Auto 0.6 K/mm3 (0.1-0.6); Neutrophils Absolute Auto 7.9 K/mm3 (1.3-6.7); Neutrophils Percent Auto 63.2 % (45.5-73.1); Platelet Count Result 164 k/mm3 (150-375); Red Blood Count 4.95 M/mm3 (4.2-5.4); White Blood Count 12.5 K/mm3 (4.5-10.0)
--- NOTE | 2021-02-10 12:43 | PC.NURSE ---
Called US. Pt had outpatient doppler scheduled today at 2 PM. Pt asked this RN to call and cancel appointment due to being in ER
--- NOTE | 2021-02-10 14:38 | PC.NURSE ---
Pt assisted to bedside commode by RN. Bleeding continues, passing clots from nose. MD at bedside and aware. Plan is for patient to see ENT when he is done with office hours in ER. Pt updated. Denies nausea at this time. Linen change and more towels given for bleeding.
--- NOTE | 2021-02-10 14:51 | ED.EPISTAXIS ---
HPI - Epistaxis General Chief complaint: Epistaxis Stated complaint: Nose Bleed Time Seen by Provider: 02/10/21 11:21 Source: patient Mode of arrival: ambulatory Limitations: no limitations History of Present Illness HPI Narrative: 60-year-old female Here for nosebleed Here last night for the same At that time after clots were expressed and topical vasoconstrictors no site of bleeding could be identified Bleeding resumed around 10 AM this morning She is not sure which side primarily bled She does not have any previous bleeding problems that she knows of Related Data Home Medications Medication Instructions Recorded Confirmed loratadine [Claritin] 10 mg PO DAILY 04/01/20 01/09/21 aspirin 81 mg tablet,delayed 81 mg PO DAILY 05/28/20 01/09/21 release rosuvastatin 40 mg tablet 40 mg PO DAILY 05/28/20 01/09/21 escitalopram oxalate 10 mg PO DAILY 12/30/20 01/09/21 Allergies Allergy/AdvReac Type Severity Reaction Status Date / Time hydromorphone Allergy Unknown Rash Verified 02/10/21 11:13 terbinafine Allergy Unknown Rash Verified 02/10/21 11:13 Review of Systems Constitutional: Constitutional: Denies chills, Denies fever(s) and Denies headache(s) ENT: Denies headache(s), Reports epistaxis and Denies sore throat Cardiovascular: Cardiovascular: Denies chest pain and Denies dyspnea Respiratory: Respiratory: Denies cough and Denies dyspnea Gastrointestinal: Gastrointestinal: Reports nausea Genitourinary: Genitourinary: Denies urinary frequency Musculoskeletal: Musculoskeletal: Denies deformity and Denies numbness Integumentary/Breasts: Skin/Breast: Denies rash and Denies wounds Neurologic: Denies headache(s), Denies focal weakness and Denies numbness Psychiatric: Psychiatric: Reports no additional psychiatric complaints Endocrine: Endocrine: Reports no additional endocrine complaints Hematologic/Lymphatic: Hematologic/Lymphatic: Reports no additional hematologic/lymphatic complaints, Denies easy bleeding and Denies easy bruising Allergic/Immunologic: Allergic/Immunologic: Reports no additional allergic/immunologic complaints PMFSH Past Medical History Medical History Adenomatous colon polyp Bilateral cataracts BMI 33.0-33.9,adult BMI 34.0-34.9,adult BMI 34.0-34.9,adult BMI 35.0-35.9,adult BMI 36.0-36.9,adult BMI over 35 CAD in [place] artery Chronic diarrhea Chronic narcotic use Constipation due to opioid therapy Decreased libido Depression Dermatitis Elevated glucose Essential (primary) hypertension Exocrine pancreatic insufficiency GERD (gastroesophageal reflux disease) Heart attack Heart disease Hip pain, bilateral Low back pain Low vitamin D level Lymphocytosis MDD (major depressive disorder), single episode, moderate Medial epicondylitis, left elbow Mixed hyperlipidemia Neuropathy GRANT (obstructive sleep apnea) GRANT (obstructive sleep apnea) Osteoporosis Pre-diabetes Right wrist pain Screen for colon cancer Screening mammogram for high-risk patient Tobacco abuse Surgical History Surgical History H/O heart artery stent H/O spinal fusion S/P bladder repair S/P S/P laparoscopic cholecystectomy S/P partial hysterectomy Family History Family History Mother Cerebrovascular accident Family history of lung cancer Grandparent No problems noted. Father Family history of cardiovascular disease Sibling Cerebral palsy Other Carcinoma of colon Hypertension Social History Social History Smoking packs per day: 0.75 Smoking cigarettes per day: 15.0 Years smoked: 46 Smoking pack-years: 34.50 Tobacco type: cigarettes Second hand tobacco smoke exposure: No Alcohol intake: never Drinks per week: 0 Alcohol use
[2021-02-10] MEDS: ONDANSETRON INJ 4 MG/2 ML VIAL IV PUSH (16:38)
[2021-02-10] MEDS: LACTATED RINGERS 1,000 ML 999 ML IV CONT (16:38)
--- NOTE | 2021-02-10 18:15 | PC.NURSE ---
ENT at bedside. Plan for potential surgery tomorrow (02/11/2021)
--- NOTE | 2021-02-10 18:38 | WPDCN ---
Assessment and Plan Assessment and plan (1) Acute posterior epistaxis: Code(s): R04.0 - Epistaxis Status: Acute Assessment and Plan: scope consistent with left sided posterior epistaxis. Patient did not tolerate and refused any packing. Plan for OR for bilateral nasal endoscopy, control of epistaxis, left sided maxillary antrostomy, left sided spa ligation. Risks discussed including bleeding infection damage to surrounding structures need for further procedures. failure to resolve epistaxis. Total operative time 1 hour. HPI Data of Consult Date/Time: 02/10/21 18:38 Primary Care Provider: Magdy Alexander MD Consult Narrative Narrative: Karen Stuart is a 60 year old female with several days of left sided epistaxis, not palliated by packing or afrin use. Hypertensive. ENT consulted for further evaluation. [facility] Past Medical History Medical History Adenomatous colon polyp Bilateral cataracts BMI 33.0-33.9,adult BMI 34.0-34.9,adult BMI 34.0-34.9,adult BMI 35.0-35.9,adult BMI 36.0-36.9,adult BMI over 35 CAD in [place] artery Chronic diarrhea Chronic narcotic use Constipation due to opioid therapy Decreased libido Depression Dermatitis Elevated glucose Essential (primary) hypertension Exocrine pancreatic insufficiency GERD (gastroesophageal reflux disease) Heart attack Heart disease Hip pain, bilateral Low back pain Low vitamin D level Lymphocytosis MDD (major depressive disorder), single episode, moderate Medial epicondylitis, left elbow Mixed hyperlipidemia Neuropathy GRANT (obstructive sleep apnea) GRANT (obstructive sleep apnea) Osteoporosis Pre-diabetes Right wrist pain Screen for colon cancer Screening mammogram for high-risk patient Tobacco abuse Surgical History Surgical History H/O heart artery stent H/O spinal fusion S/P bladder repair S/P S/P laparoscopic cholecystectomy S/P partial hysterectomy Family History Family History Mother Cerebrovascular accident Family history of lung cancer Grandparent No problems noted. Father Family history of cardiovascular disease Sibling Cerebral palsy Other Carcinoma of colon Hypertension Social History Social History Smoking packs per day: 0.75 Smoking cigarettes per day: 15.0 Years smoked: 46 Smoking pack-years: 34.50 Tobacco type: cigarettes Second hand tobacco smoke exposure: No Alcohol intake: never Drinks per week: 0 Alcohol use details: occasional wine Substance use: never Substance use type: opiates Other substance usage details: norco/acetaminophen 2/325mg every 4-6 hours prn Last use: daily Additional living arrangements comments: and son Additional occupation/education comments: disabled Gender identity (if verbalized by the patient): Female Sexual Orientation (if Verbalized by the Patient): Straight or Heterosexual Spiritual care concerns: No Agree to blood products: Yes Meds Home Medications and Allergies Home Medications Medication Instructions Recorded Confirmed Type loratadine [Claritin] 10 mg PO DAILY 04/01/20 01/09/21 History aspirin 81 mg tablet,delayed 81 mg PO DAILY 05/28/20 01/09/21 History release diclofenac sodium 1 % topical gel 2 g TOPICAL QID #500 g 05/28/20 01/09/21 Rx rosuvastatin 40 mg tablet 40 mg PO DAILY 05/28/20 01/09/21 History denosumab 60 mg/mL subcutaneous 60 mg SUBCUT [id number] #1 ml 07/02/20 01/09/21 Rx syringe triamcinolone acetonide 0.5 % 1 applic TOPICAL BID PRN #15 g 07/03/20 01/09/21 Rx topical ointment calcium carbonate 600 mg-vitamin 1 tablet PO DAILY #90 tablet 09/30/20 01/09/21 Rx D3 20 mcg (800 unit) tablet gabapentin 300 mg capsule 600 mg PO BID #360 cap
--- NOTE | 2021-02-10 18:44 | WPDPROCEDUR ---
Procedures Epistaxis Control Epistaxis Comment: performed endoscopically, clots suctioned, bleeding from the left spa region, patient tolerated no packing of any sort.
--- NOTE | 2021-02-10 19:19 | PM.IMHP ---
H&P: HPI History of Present Illness Date/Time: 02/10/21 19:19 Chief Complaint: Posterior left sided epistaxis, recurrent epistaxis PMFSH Past Medical History Medical History Adenomatous colon polyp Bilateral cataracts BMI 33.0-33.9,adult BMI 34.0-34.9,adult BMI 34.0-34.9,adult BMI 35.0-35.9,adult BMI 36.0-36.9,adult BMI over 35 CAD in [place] artery Chronic diarrhea Chronic narcotic use Constipation due to opioid therapy Decreased libido Depression Dermatitis Elevated glucose Essential (primary) hypertension Exocrine pancreatic insufficiency GERD (gastroesophageal reflux disease) Heart attack Heart disease Hip pain, bilateral Low back pain Low vitamin D level Lymphocytosis MDD (major depressive disorder), single episode, moderate Medial epicondylitis, left elbow Mixed hyperlipidemia Neuropathy GRANT (obstructive sleep apnea) GRANT (obstructive sleep apnea) Osteoporosis Pre-diabetes Right wrist pain Screen for colon cancer Screening mammogram for high-risk patient Tobacco abuse Surgical History Surgical History H/O heart artery stent H/O spinal fusion S/P bladder repair S/P S/P laparoscopic cholecystectomy S/P partial hysterectomy Family History Family History Mother Cerebrovascular accident Family history of lung cancer Grandparent No problems noted. Father Family history of cardiovascular disease Sibling Cerebral palsy Other Carcinoma of colon Hypertension Social History Social History Smoking packs per day: 0.75 Smoking cigarettes per day: 15.0 Years smoked: 46 Smoking pack-years: 34.50 Tobacco type: cigarettes Second hand tobacco smoke exposure: No Alcohol intake: never Drinks per week: 0 Alcohol use details: occasional wine Substance use: never Substance use type: opiates Other substance usage details: norco/acetaminophen 2/325mg every 4-6 hours prn Last use: daily Additional living arrangements comments: and son Additional occupation/education comments: disabled Gender identity (if verbalized by the patient): Female Sexual Orientation (if Verbalized by the Patient): Straight or Heterosexual Spiritual care concerns: No Agree to blood products: Yes Meds Home Medications and Allergies Home Medications Medication Instructions Recorded Confirmed Type loratadine [Claritin] 10 mg PO DAILY 04/01/20 01/09/21 History aspirin 81 mg tablet,delayed 81 mg PO DAILY 05/28/20 01/09/21 History release diclofenac sodium 1 % topical gel 2 g TOPICAL QID #500 g 05/28/20 01/09/21 Rx rosuvastatin 40 mg tablet 40 mg PO DAILY 05/28/20 01/09/21 History denosumab 60 mg/mL subcutaneous 60 mg SUBCUT [id number] #1 ml 07/02/20 01/09/21 Rx syringe triamcinolone acetonide 0.5 % 1 applic TOPICAL BID PRN #15 g 07/03/20 01/09/21 Rx topical ointment calcium carbonate 600 mg-vitamin 1 tablet PO DAILY #90 tablet 09/30/20 01/09/21 Rx D3 20 mcg (800 unit) tablet gabapentin 300 mg capsule 600 mg PO BID #360 cap 09/30/20 01/09/21 Rx escitalopram oxalate 10 mg PO DAILY 12/30/20 01/09/21 History bupropion HCl 300 mg 24 hr tablet, 300 mg PO QAM #30 tablet 01/06/21 01/09/21 Rx extended release loperamide 2 mg capsule 2 mg PO Q6H PRN #90 cap 01/07/21 01/09/21 Rx omeprazole 40 mg capsule,delayed 40 mg PO DAILY #30 cap 01/07/21 01/09/21 Rx release lisinopril 40 mg tablet 40 mg PO DAILY #90 tablet 01/09/21 01/09/21 Rx ropinirole 1 mg tablet 1 mg PO QHS #30 tablet 01/09/21 Rx hydrocodone 5 mg-acetaminophen 325 1 - 2 tablet PO Q4-6H PRN #180 01/20/21 Rx mg tablet tablet Allergies Allergy/AdvReac Type Severity Reaction Status Date / Time hydromorphone Allergy Unknown Rash Verified 02/10/21 11:13 terbetinaafine A
[2021-02-10] MEDS: HYDROcodone/acetaminophen (*CRX) 5-325 MG TABLET 1 TAB PO (21:24)
[2021-02-10] MEDS: GABAPENTIN 300 MG CAPSULE PO (21:29)
--- NOTE | 2021-02-10 22:08 | ADMGEN ---
This patient, Karen Stuart, was admitted to Medical Room 253-01. Patient/family oriented to hospital policies and general routines including ID bracelet, bed and alarms, visiting hours, pain management, procedures, bathroom and other care routines, personal items, smoking policy, room service/diet, and visiting hours. Information on how to activate the Rapid Response Team has been discussed. Patient/Family are encouraged to report perceived risks to care and to ask questions if they do not understand what they are told or what they should do.
[2021-02-10] MEDS: LACTATED RINGERS 1,000 ML 125 ML IV CONT (22:40)
[2021-02-11] VITALS (12 sets, daily range): BP systolic 119–195; BP diastolic 49–81; PULSE 61–96; RESP 14–20; TEMP 36.2–36.6; O2SAT 93–100; BMI 34.7
--- NOTE | 2021-02-11 01:42 | PC.NURSE ---
PT NOSE IS STILL BLEEDING INTERMITTENTLY. PT ONLY HAS SHORT MOMENTS OF RELIEF FROM SYMPTOMS THEN STARTS BLEEDING. PT UNDERSTANDS THE NEED FOR SOME SORT OF NASAL PACKING TO STOP THE BLEEDING BUT REFUSES.
[2021-02-11] MEDS: HYDROcodone/acetaminophen (*CRX) 5-325 MG TABLET 1 TAB PO ×3 (03:17→12:48)
[2021-02-11] MEDS: ONDANSETRON INJ 4 MG/2 ML VIAL IV PUSH ×2 (03:20→12:48)
[2021-02-11 05:27] LABS: Basophils Absolute Auto 0.1 K/mm3 (0.0-0.1); Basophils Percent Auto 0.5 % (0.2-1.2); Eosinophils Absolute Auto 0.1 K/mm3 (0-0.3); Eosinophils Percent Auto 0.9 % (0-4.4); Hematocrit 34.8 % (37.0-47.0); Hemoglobin 10.9 g/dL (12.0-15.0); Immature Granulocyte Absolute 0.05 K/mm3 (0.00-0.031); Immature Granulocyte Percent A 0.3 % (0-0.5); Lymphocytes Absolute Auto 6.43 K/mm3 (0.9-3.2); Lymphocytes Percent Auto 44.2 % (18.3-44.2); Mean Corpuscular HGB Conc 31.3 g/dl (32-36); Mean Corpuscular Hemoglobin 27.9 pg (26-34); Monocytes Absolute Auto 0.9 K/mm3 (0.1-0.6); Monocytes Percent Auto 6.4 % (2.6-8.5); Neutrophils Percent Auto 47.7 % (45.5-73.1); Platelet Count Result 152 k/mm3 (150-375); Red Blood Count 3.91 M/mm3 (4.2-5.4); White Blood Count 14.6 K/mm3 (4.5-10.0)
[2021-02-11] MEDS: LACTATED RINGERS 1,000 ML 125 ML IV CONT ×2 (06:58→22:52)
--- NOTE | 2021-02-11 07:16 | WPDHPUPDATE1 ---
History and Physical Update Update Date/Time: 02/11/21 07:16 History and Physical has been reviewed, including an updated exam of the patient. There are NO changes in the patient's condition. Risks, benefits, and alternatives have been discussed and questions answered. Patient agrees to proceed with procedure. Add possible septoplasty.
[2021-02-11 08:00] LABS: Large Platelets Present; Platelet Estimate Adequate (Adequate)
[2021-02-11 08:01] LABS: Atypical Lymphocytes Present
--- NOTE | 2021-02-11 08:40 | PC.NURSE ---
To OR per bed, IV Saline locked. Report given to Rosy.
[2021-02-11] MEDS: LACTATED RINGERS 1,000 ML 30 ML IV CONT ×2 (08:45→10:09)
--- NOTE | 2021-02-11 08:56 | WPDANESEPPF ---
Anes - Initial Pre Proc Eval Procedure: Operation Date: 02/11/21 09:00 Proposed Procedures p Bilateral Nasal Endoscopy, Left Sphenopalatine Artery Ligation, Possible Septoplasty, - Bhupendra Cortez MD s Control of Epistaxis - Bhupendra Cortez MD Date/Time: 02/11/21 08:56 Surgeon: Loretta Alexis PA-C Pre Op Diagnosis: posterior epistaxis Patient Data Age: 60 Gender: F Height: 1.65 m Weight: 94.6 kg Last Vital Signs Temp 36.3 C L 02/11/21 08:44 Pulse 70 02/11/21 08:44 Resp 20 02/11/21 08:44 BP 142/63 H 02/11/21 08:44 Pulse Ox 94 02/11/21 08:44 Allergies Allergy/AdvReac Type Severity Reaction Status Date / Time hydromorphone Allergy Unknown Rash Verified 02/11/21 08:38 terbinafine Allergy Unknown Rash Verified 02/11/21 08:38 Home Medications Medication Instructions Recorded Confirmed Type loratadine [Claritin] 10 mg PO DAILY 04/01/20 02/10/21 History aspirin 81 mg tablet,delayed 81 mg PO DAILY 05/28/20 02/10/21 History release rosuvastatin 40 mg tablet 40 mg PO DAILY 05/28/20 02/10/21 History denosumab 60 mg/mL subcutaneous 60 mg SUBCUT [id number] #1 ml 07/02/20 02/10/21 Rx syringe triamcinolone acetonide 0.5 % 1 applic TOPICAL BID PRN #15 g 07/03/20 02/10/21 Rx topical ointment calcium carbonate 600 mg-vitamin 1 tablet PO DAILY #90 tablet 09/30/20 02/10/21 Rx D3 20 mcg (800 unit) tablet escitalopram oxalate [Lexapro] 10 mg PO HS 12/30/20 02/10/21 History loperamide 2 mg capsule 2 mg PO Q6H PRN #90 cap 01/07/21 02/10/21 Rx lisinopril 40 mg tablet 40 mg PO DAILY #90 tablet 01/09/21 02/10/21 Rx ropinirole 1 mg tablet 1 mg PO QHS #30 tablet 01/09/21 02/10/21 Rx hydrocodone 5 mg-acetaminophen 325 1 - 2 tablet PO Q4-6H PRN #180 01/20/21 02/10/21 Rx mg tablet tablet bupropion HCl [Wellbutrin XL] 300 mg PO QAM 02/10/21 02/10/21 History cinnamon bark [Cinnamon] 500 mg PO DAILY 02/10/21 02/10/21 History cranberry fruit concentrate [Azo 250 mg PO DAILY 02/10/21 02/10/21 History Cranberry] diclofenac sodium [Voltaren 2 g TOPICAL QID 02/10/21 02/10/21 History Arthritis Pain] gabapentin [Neurontin] 600 mg PO BID 02/10/21 02/10/21 History omeprazole 40 mg PO DAILY 02/10/21 02/10/21 History Laboratory Tests 02/10/21 02/10/21 02/10/21 11:36 11:36 12:34 WBC 12.5 K/mm3 H K/mm3 (4.5-10.0) RBC 4.95 M/mm3 M/mm3 (4.2-5.4) Hgb 13.6 g/dL g/dL (12.0-15.0) Hct 44.2 % % (37.0-47.0) MCV 89.3 fl fl (80-100) MCH 27.5 pg pg (26-34) MCHC 30.8 g/dl L g/dl (32-36) RDW 14.0 % % (11.5-14.5) Plt Count 164 k/mm3 k/mm3 (150-375) MPV 11.5 fl H fl (7.4-10.4) Immature Gran % (Auto) 0.4 % % (0-0.5) Neut % (Auto) 63.2 % % (45.5-73.1) Lymph % (Auto) 29.5 % % (18.3-44.2) [place] % (Auto) 5.0 % % (2.6-8.5) Eos % (Auto) 1.4 % % (0-4.4) Baso % (Auto) 0.5 % % (0.2-1.2) Lymph # (Auto) 3.68 K/mm3 H K/mm3 (0.9-3.2) [place] # (Auto) 0.6 K/mm3 K/mm3 (0.1-0.6) Eos # (Auto) 0.2 K/mm3 K/mm3 (0-0.3) Baso # (Auto) 0.1 K/mm3 K/mm3 (0.0-0.1) Abs Immat Gran (auto) 0.05 K/mm3 H K/mm3 (0.00-0.031) Absolute Neuts (auto) 7.9 K/mm3 H K/mm3 (1.3-6.7) Absolute Nucleated RBC 0.0 K/mm3 K/mm3 (0.0-0.012) Nucleated RBC % 0.0 % % (0.0-0.2) Atypical Lymphocytes Platelet Estimate Large Platelets PT 11.8 Seconds Seconds (11.1-14.7) INR 0.9 Sodium 137 mmol/L mmol/L (137-145) Potassium 3.4 mmol/L mmol/L (3.4-5.0) Chloride 101 mmol/L mmol/L (98-107) Carbon Dioxide 26 mmol/L mmol/L (22-30) Anion Gap 10 mmol/L mmol/L (8-16) BUN 18 mg/dL H mg/dL (7-17) Creatinine 0.60 mg/dL L mg/dL (0.7-1.0) Estim Creat Clear Calc 99 ml/min ml
[2021-02-11] MEDS: ceFAZolin SODIUM 1 GM VIAL 2 GM IV PUSH (09:25)
[2021-02-11] MEDS: LIDO 1%/EPINEPHRINE/PF 1:200,000 30 ML VIAL 10 ML XX (09:26)
[2021-02-11] MEDS: OXYMETAZOLINE HCL 0.05% NAS 15 ML BTL (*BKC) 1 SPRAY NASAL (09:28)
--- NOTE | 2021-02-11 10:25 | P.OP_ITS ---
Procedure Note - Detailed Date of Procedure 02/11/21 Pre-op Diagnosis posterior epistaxis left-sided Post-op Diagnosis same Procedure Performed bilateral nasal endoscopy, left-sided middle turbinectomy, left-sided maxillary antrostomy, left-sided sphenopalatine artery ligation all endoscopic Surgeon Bhupendra Cortez MD Anesthesia general Indications see above Description of Procedure patient correctly identified consent verified. Patient brought operating room. Time-out performed. General anesthesia induced. Patient prepped and draped for the aforementioned procedure. Second timeout performed. Afrin placed in the bilateral nasal passages allowed to sit for 5 minutes. Then removed. Zero- degree scope and a utilized. Left septal deviation noted middle turbinate injected with 1 cc of local mixed with epinephrine 1% 1 100,000 parts epi. Middle turbinectomy performed with straight through cut suction Bovie at a setting of 15. Left maxillary antrostomy performed with double ball tip probe backbiter straight through cut. As well as microdebrider. Ensure to communicate with the natural os. Back wall of maxillary sinus identified. Mucosa peeled until sphenopalatine artery. Identified. Cauterized with suction Bovie electrocautery at a setting of 15. Posterior septal artery also cauterized with suction Bovie electrocautery at a setting of 15. No further bleeding was noted. Bilateral nasal passages suction. Afrin-soaked pledgets placed in the left side for 5 minutes. Removed hemostasis was excellent. Total blood loss 25 cc. I performed all dictated portions of the procedure. There were no complications. Care the patient was turned over to Anesthesiology. Estimated Blood Loss -25.0 Drains No Packing No Pathology none sent Complications No immediate complications Condition stable Disposition PACU
[2021-02-11] MEDS: fentaNYL CITRATE INJ (*CRX) 100 MCG/2 ML VIAL 25 MCG IV PUSH ×8 (10:38→11:02)
--- NOTE | 2021-02-11 11:40 | PC.NURSE ---
Returned from OR per bed. Report received from Rolo.
--- NOTE | 2021-02-11 13:19 | PM.IMHP ---
H&P: HPI History of Present Illness Date/Time: 02/11/21 13:19 Pt is a 60 yo female w/ hx of HTN, HLD, neuropathy, chronic back pain, depression, CAD, [place] w/ 2 stents, presented to the hospital for epistaxis. Pt states 2 days ago she presented to the ED for epistaxis which resolved after vasoconstrictors. Pt states bleeding resumed at 10am yesterday morning prompting her to return to the hospital again. She states she filled a trash can assisted up with blood prior to arrival. She denies pain, vision changes, dizziness, sob, palpitations. ER was unable to stop the bleeding so ENT was consulted who identified a sphenopalatine artery bleed. Pt was taken to the OR this morning and had a bilateral nasal endoscopy, left-sided middle turbinectomy, left-sided maxillary antrostomy, left-sided sphenopalatine artery ligation. On my arrival today patient had just come from the PACU and was having nausea and dry heaves and appeared very uncomfortable, complaining of moderate pain to her nose. Chief Complaint: epistaxis Review of Systems Review of Systems: General: Denies fevers, chills Eyes: Denies vision changes or eye pain ENT: +epistaxis, nasal pain Respiratory: Denies cough or shortness of breath Cardiovascular: Denies chest pain, palpitations, or lower extremity edema Gastrointestinal: Denies abdominal pain, +nausea and vomiting, +chronic diarrhea Genitourinary: Denies dysuria or urinary frequency Musculoskeletal: + chronic back pain Neurological: Denies headache, paraesthesias, or motor weakness Integumentary: Denies rash or other skin lesions Psychiatric: +depression PMFSH Past Medical History Medical History (Updated 02/11/21 @ 13:46 by Loretta Alexis PA-C) Adenomatous colon polyp Bilateral cataracts BMI 34.0-34.9,adult CAD in [place] artery Chronic diarrhea Chronic narcotic use Depression Essential (primary) hypertension Exocrine pancreatic insufficiency GERD (gastroesophageal reflux disease) Heart attack History of ectopic Low back pain Low vitamin D level Mixed hyperlipidemia Neuropathy GRANT (obstructive sleep apnea) Osteoporosis Pre-diabetes Restless leg syndrome Tobacco abuse Surgical History Surgical History (Updated 02/11/21 @ 13:46 by Loretta Alexis PA-C) H/O heart artery stent H/O spinal fusion History of surgical removal of ganglion cyst S/P bladder repair S/P S/P laparoscopic cholecystectomy S/P partial hysterectomy Family History Family History Mother Cerebrovascular accident Family history of lung cancer Grandparent No problems noted. Father Family history of cardiovascular disease Sibling Cerebral palsy Other Carcinoma of colon Hypertension Social History Social History (Updated 02/11/21 @ 13:47 by Loretta Alexis PA-C) Smoking packs per day: 1 Smoking cigarettes per day: 20.0 Smoking status: Current every day smoker Tobacco type: cigarettes Second hand tobacco smoke exposure: No Alcohol intake: current Drinks per week: 1 Alcohol use details: occasional wine Substance use: never Substance use type: opiates Other substance usage details: norco/acetaminophen two 5/325mg every 4-6 hours prn Last use: daily Additional living arrangements comments: and son Additional occupation/education comments: disabled Gender identity (if verbalized by the patient): Female Sexual Orientation (if Verbalized by the Patient): Straight or Heterosexual Spiritual care concerns: No Agree to blood products: Yes Meds Home Medications and Allergies Home Medications Medication Instructions Recorded Confirmed Type loratadine [Claritin] 10 mg PO DAILY 04/01/20 02/10/21 History aspirin 81 mg tablet,delayed 81 mg PO DAILY 05/28/20 02/10/21 History release rosuvastatin 40 mg tablet 40 mg PO DAILY 05/28/20 02/10/21 History
--- NOTE | 2021-02-11 14:41 | PC.NURSE ---
On 02/11/21, the student, [Bogdan Cabrera ], provided care and completed [facility] documentation on this patient. I have reviewed the student's documentation and agree with the findings.
[2021-02-11] MEDS: oxyCODONE/ACETAMINOPHEN (*CRX) 5-325 MG TABLET 1 TABLET PO ×2 (16:25→22:52)
[2021-02-11] MEDS: PANTOPRAZOLE 40 MG TABLET PO (16:25)
[2021-02-11] MEDS: DICLOFENAC SODIUM 1% 100 GM GEL (*BKC) 1 APPLIC TOPICAL ×2 (16:25→20:35)
[2021-02-11] MEDS: GABAPENTIN 300 MG CAPSULE 600 MG PO (16:25)
[2021-02-11] MEDS: ESCITALOPRAM OXALATE 10 MG TABLET PO (20:35)
[2021-02-11] MEDS: rOPINIRole HCL 1 MG TABLET PO (20:35)
[2021-02-12] VITALS: BP 153/58; PULSE 76; RESP 18; TEMP 36.2; O2SAT 96
[2021-02-12] MEDS: oxyCODONE/ACETAMINOPHEN (*CRX) 5-325 MG TABLET 1 TABLET PO ×2 (03:57→07:57)
[2021-02-12 04:00] VITALS: BP 126/53; PULSE 60; RESP 18; TEMP 36.2; O2SAT 96
[2021-02-12] MEDS: LACTATED RINGERS 1,000 ML 125 ML IV CONT (06:37)
[2021-02-12 06:45] LABS: Basophils Absolute Auto 0.1 K/mm3 (0.0-0.1); Basophils Percent Auto 0.4 % (0.2-1.2); Eosinophils Percent Auto 0.1 % (0-4.4); Hematocrit 30.3 % (37.0-47.0); Hemoglobin 9.6 g/dL (12.0-15.0); Immature Granulocyte Absolute 0.08 K/mm3 (0.00-0.031); Immature Granulocyte Percent A 0.5 % (0-0.5); Lymphocytes Absolute Auto 4.05 K/mm3 (0.9-3.2); Lymphocytes Percent Auto 27.8 % (18.3-44.2); Mean Corpuscular HGB Conc 31.7 g/dl (32-36); Mean Corpuscular Hemoglobin 28.6 pg (26-34); Mean Corpuscular Volume 90.2 fl (80-100); Mean Platelet Volume 12.4 fl (7.4-10.4); Monocytes Absolute Auto 0.9 K/mm3 (0.1-0.6); Monocytes Percent Auto 6.2 % (2.6-8.5); Neutrophils Absolute Auto 9.5 K/mm3 (1.3-6.7); Platelet Count Result 143 k/mm3 (150-375); Red Blood Count 3.36 M/mm3 (4.2-5.4); Red Cell Distribution Width 14.1 % (11.5-14.5); White Blood Count 14.6 K/mm3 (4.5-10.0)
[2021-02-12 07:08] LABS: Anion Gap 8 mmol/L (8-16); Blood Urea Nitrogen 12 mg/dL (7-17); Carbon Dioxide 27 mmol/L (22-30); Chloride 104 mmol/L (98-107); Estimated CRCL calculation 116 ml/min; Estimated Glomerular Filt Rate > 60; Glucose 125 mg/dL (65-110); Potassium 3.7 mmol/L (3.4-5.0); Sodium 139 mmol/L (137-145)
[2021-02-12] MEDS: buPROPion HCL XL (24 HR) 150 MG TABCR 300 MG PO (07:55)
[2021-02-12] MEDS: DICLOFENAC SODIUM 1% 100 GM GEL (*BKC) 1 APPLIC TOPICAL (07:55)
[2021-02-12] MEDS: GABAPENTIN 300 MG CAPSULE 600 MG PO (07:55)
[2021-02-12] MEDS: LORATADINE 10 MG TABLET PO (07:56)
[2021-02-12] MEDS: PANTOPRAZOLE 40 MG TABLET PO (07:56)
[2021-02-12] MEDS: lisinopriL 20 MG TABLET 40 MG PO (07:56)
[2021-02-12] MEDS: ROSUVASTATIN 10 MG TABLET 40 MG PO (07:56)
--- NOTE | 2021-02-12 10:27 | P.PNAN_ITS ---
Anes - Prog Note Post-Op Date/Time: 02/12/21 10:27 Cardiovascular status: normal Respiratory status: normal Airway patency: baseline Mental status: baseline Post-Op hydration status: normal Vital Signs: Last Vital Signs Temp 36.2 C L 02/12/21 04:00 Pulse 60 02/12/21 04:00 Resp 18 02/12/21 04:00 BP 126/53 L 02/12/21 04:00 Pulse Ox 96 02/12/21 04:00 Pain Score (VAS): 0 I/O: Intake & Output 02/11/21 02/12/21 02/12/21 23:59 07:59 15:59 Intake Total 1936 1660 60 Output Total 1250 1300 Balance 686 360 60 Laboratory Tests 02/12/21 06:04 02/12/21 02/12/21 02/12/21 06:04 06:04 09:35 WBC 14.6 H RBC 3.36 L Hgb 9.6 L Pending Hct 30.3 L Pending MCV 90.2 MCH 28.6 MCHC 31.7 L RDW 14.1 Plt Count 143 L MPV 12.4 H Immature Gran % (Auto) 0.5 Neut % (Auto) 65.0 Lymph % (Auto) 27.8 [place] % (Auto) 6.2 Eos % (Auto) 0.1 Baso % (Auto) 0.4 Lymph # (Auto) 4.05 H [place] # (Auto) 0.9 H Eos # (Auto) 0.0 Baso # (Auto) 0.1 Abs Immat Gran (auto) 0.08 H Absolute Neuts (auto) 9.5 H Absolute Nucleated RBC 0.0 Nucleated RBC % 0.0 Sodium 139 Potassium 3.7 Chloride 104 Carbon Dioxide 27 Anion Gap 8 BUN 12 D Creatinine 0.50 L Estim Creat Clear Calc 116 Estimated GFR > 60 Glucose 125 H Calcium 9.0 Post-procedural complaints: none Patient Feedback: Patient satisfied with anesthetic care.
[2021-02-12 10:33] LABS: Hematocrit 29.2 % (37.0-47.0); Hemoglobin 8.9 g/dL (12.0-15.0)
[2021-02-12 10:45] VITALS: BP 137/55; PULSE 77; RESP 16; TEMP 35.9; O2SAT 98
--- NOTE | 2021-02-12 11:46 | ECG_ITS ---
Measurements Intervals [place] Rate: 77 P: 66 SC: 182 QRS: 29 QRSD: 91 T: 68 QT: 405 QTc: 460 Interpretive Statements SINUS RHYTHM EARLY PRECORDIAL R/S TRANSITION NONSPECIFIC ST & T-WAVE ABNORMALITY- DIFFUSE LEADS BORDERLINE ECG Electronically Signed On 02-12-2021 12:35:39 [employer] by Shon Daniels D.O.
[2021-02-12 13:00] LABS: Troponin I < 0.012 ng/mL (0.000-0.034)
[2021-02-12] MEDS: HYDROcodone/acetaminophen (*CRX) 5-325 MG TABLET 1 TAB PO (13:57)
--- NOTE | 2021-02-12 14:28 | PM.DS ---
DS: Admitting Diagnosis Discharge Date 02/12/21 Admitting Diagnosis epistaxis DS: Discharge Diagnosis Discharge Diagnosis (1) Acute posterior epistaxis: Code(s): R04.0 - Epistaxis Status: Acute Assessment and Plan: -seen in ED by ENT who identified sphenopalatine artery bleed -s/p bilateral nasal endoscopy, left-sided middle turbinectomy, left-sided maxillary antrostomy, left-sided sphenopalatine artery ligation all endoscopic performed by Dr. Cortez -bleeding resolved at this time -H/H stable 9.6/30.3 this morning -Nasal packing in place. Further management and discharge instructions per ENT. Appreciate the consult. (2) Post-operative pain: Code(s): G89.18 - Other acute postprocedural pain Status: Acute Assessment and Plan: -continue pain management and wean down as tolerated, pt does have chronic narcotic dependency for her back pain. Takes two norco every 4-6 hours daily -pain is overall improved today, has more of her chronic hip and back pain but nasal pain has improved (3) Low back pain: Qualifiers: Back pain laterality: midline Chronicity: acute Sciatica presence: without sciatica Qualified Code(s): M54.5 - Low back pain Code(s): M54.5 - Low back pain Status: Acute Assessment and Plan: -see above (4) Essential (primary) hypertension: Code(s): I10 - Essential (primary) hypertension Status: Acute Assessment and Plan: Stable Continued home meds DS: Summary Hospital Course Reason for hospitalization: Pt is a 60 yo female w/ hx of HTN, HLD, neuropathy, chronic back pain, depression, CAD, [place] w/ 2 stents, presented to the hospital for epistaxis and underwent bilateral nasal endoscopy, left-sided middle turbinectomy, left-sided maxillary antrostomy, left-sided sphenopalatine artery ligation. Please see HPI for further details. Hospital Course: Please see above for details of hospital course. Time spent discussing smoking cessation with patient: more than 10 minutes Status at Discharge Cognitive/behavioral status at discharge: stable Functional status at discharge: independent ambulation Overall status at discharge: patient is progressing back to baseline Time Spent with Patient Time attestation: Total time spent providing and/or coordinating discharge services: 32 Time spent: Greater than 30 minutes Exam Narrative: General: NAD, non toxic appearing, obese Eyes: PERRL, no scleral icterus HEENT: NCAT, external ears normal, MMM Respiratory: No respiratory distress, Lungs CTA bilaterally, no wheezing Cardiovascular: RRR, no murmur Abdominal: Soft, nontender, non distended, no rebound or guarding Musculoskeletal: Moves all 4 extremities, no edema Neurological: A/Ox3, speech normal, no facial asymmetry Skin: Warm, dry, no rashes Psychiatric: Normal affect, normal mood DS: Data Data Completed and Pending Labs on day of discharge: Labs from last 24 hours 02/12/21 02/12/21 02/12/21 12:26 09:35 06:04 WBC RBC Hgb 8.9 L Hct 29.2 L MCV MCH MCHC RDW Plt Count MPV Immature Gran % (Auto) Neut % (Auto) Lymph % (Auto) [place] % (Auto) Eos % (Auto) Baso % (Auto) Lymph # (Auto) [place] # (Auto) Eos # (Auto) Baso # (Auto) Abs Immat Gran (auto) Absolute Neuts (auto) Absolute Nucleated RBC Nucleated RBC % Sodium 139 Potassium 3.7 Chloride 104 Carbon Dioxide 27 Anion Gap 8 BUN 12 D Creatinine 0.50 L Estim Creat Clear Calc 116 Estimated GFR > 60 Glucose 125 H Calcium 9.0 Troponin I < 0.012 02/12/21 06:04 WBC 14.6 H RBC 3.36 L Hgb 9.6 L Hct 30.3 L MCV 90.2 MCH 28.6 MCHC 31.7 L RDW 14.1 Plt Count 143 L MPV 12.4 H Immature Gran % (Auto) 0.5 Neut % (Auto) 65.0 Lymph % (Auto) 27.8 [place] % (Auto) 6.2 Eos % (Auto) 0.1 Baso % (Auto) 0.4 Lymph # (Auto)
[2021-02-12 15:14] LABS: Troponin I < 0.012 ng/mL (0.000-0.034)
[2021-02-12 15:15] VITALS: BP 94/65; PULSE 72; RESP 18; TEMP 35.9; O2SAT 97
[2021-02-12 18:49] LABS: Troponin I 0.081 ng/mL (0.000-0.034)
--- NOTE | 2021-02-12 18:51 | PC.NURSE ---
1220 Pt c/o chest tightness and sob while ambulating in [place]. Afre rest pt states that the chest tightness was better. RA sat 97% hr 80 and bp 126/76. Leila Alexis COLLEGE PROFESSOR notified and orders received
== END 2021-02-12 18:35 | disposition home or self-care (01) ==
LOC: ANHED 19:03 → ANH2MED 20:47
PROVIDERS: Otolaryngology; Admitting Provider Family Medicine; Emergency Provider Emergency Medicine; PCP Family Medicine; Visit Provider Physician Assistant
PROC: (CPT 30520; principal; 2021-02-11 09:00)
PROC: (CPT 31256; 2021-02-11 09:00)
DX: R04.0 Epistaxis (principal); G89.18 Other acute postprocedural pain; M54.50 Low back pain, unspecified; G89.29 Other chronic pain; K86.81 Exocrine pancreatic insufficiency; K21.9 Gastro-esophageal reflux disease without esophagitis; I25.2 Old myocardial infarction; I25.10 Atherosclerotic heart disease of native coronary artery without angina pectoris; I11.9 Hypertensive heart disease without heart failure; F32.1 Major depressive disorder, single episode, moderate; E78.2 Mixed hyperlipidemia; G47.33 Obstructive sleep apnea (adult) (pediatric); R73.03 Prediabetes; M81.0 Age-related osteoporosis without current pathological fracture; G62.9 Polyneuropathy, unspecified; G25.81 Restless legs syndrome; F17.210 Nicotine dependence, cigarettes, uncomplicated; Z79.82 Long term (current) use of aspirin; Z98.1 Arthrodesis status; Z95.5 Presence of coronary angioplasty implant and graft; Z79.891 Long term (current) use of opiate analgesic; E66.9 Obesity, unspecified; Z68.34 Body mass index [BMI] 34.0-34.9, adult
CPT/HCPCS: 31256; 31241; 30999; 30903; 36415; 80048; 80053; 84484; 85014; 85018; 85025; 85610; 93005; 96361; 96374; 96375; 96376; 99285; A9270; G0378; J0330; J0360; J0690; J2250; J2405; J2704; J3010; J7120

== ENCOUNTER 2021-02-12 19:40 | Observation (INO) | payer MEDICARE, MEDICAID, SELFPAY ==
[2021-02-12] VITALS (7 sets, daily range): BP systolic 110–210; BP diastolic 60–88; PULSE 68–81; RESP 13–21; TEMP 36.3–36.8; O2SAT 94–100; BMI 36.8
--- NOTE | ~2021-02-12 | US_ITS ---
EXAMINATION: US art doppler w edgar PALOMINO EXAM DATE: 02/13/2021 14:02 INDICATION: Peripheral vascular disease. TECHNIQUE: Segmental pressures and plethysmographic and Doppler waveforms of the brachial and lower e xtremity arteries were obtained. There is no prior study for comparison. FINDINGS: Right and left brachial artery pressures of 155 mm Hg and 80 mm Hg, respectively, are discordant (nor mal difference <= 30 mmHg). The right and left thigh-brachial pressure indices are XXXRIGHTLEFTLLLL, respectively (normal > 1.2). RIGHT LEG: The ankle-brachial index (BEATRIZ) is 0.56 (normal >= 0.9-1). The great toe-brachial index (TBI) is 0.45 (normal >= 0.65). The lower extremity ratios, segmental pressure gradients as follows; Dorsalis pedis: 0.55 (85 mmHg). Posterior tibial: 0.56 (87 mmHg). (Normal gradients <= 20-30 mmHg between adjacent levels on the same leg or the same levels on the two legs). Arterial waveforms are monophasic. LEFT LEG: The ankle-brachial index (BEATRIZ) is 0.89 (normal >= 0.9-1). The great toe-brachial index (TBI) is 0.74 (normal >= 0.65). The lower extremity ratios, segmental pressure gradients as follows; Dorsalis pedis: 0.9 (138 mmHg). Posterior tibial: 0.50 (78 mmHg). (Normal gradients <= 20-30 mmHg between adjacent levels on the same leg or the same levels on the two legs). Arterial waveforms are monophasic. IMPRESSION: 1. Right ankle-brachial index 0.56, moderately decreased. 2. Left ankle-brachial index 0.89, minimally decreased. 3. Brachial artery right left discordancy suggesting left subclavian origin stenosis. 4. Segmental pressures as above. Reviewed, dictated and finalized at location B. ING AND INSURANCE COORDINATOR IMPRESSION: 1. Right ankle-brachial index 0.56, moderately decreased. 2. Left ankle-brachial index 0.89, minimally decreased. 3. Brachial artery right left discordancy suggesting left subclavian origin st enosis. 4. Segmental pressures as above.
--- NOTE | ~2021-02-12 | US_ITS ---
EXAMINATION: US carotid duplex BI EXAM DATE: 02/13/2021 14:14 INDICATION: Carotid bruit, CAD, PAD . TECHNIQUE: Grayscale, color and pulsed Doppler images of the cervical carotid arteries were obtained . The degree of vessel stenosis is placed in one of the following categories: normal, <50% stenosis, 50-69% stenosis, >=70% stenosis but less than near-occlusion, near-occlusion, or occlusion. Note that percent stenosis relative to normal distal artery lumen diameter is indirectly measured from velocit y measurements as described by Gerson, et al. Radiology 2003; 229:340-346. There is no prior study fo r comparison. FINDINGS: RIGHT SIDE: Right common carotid artery peak systolic velocity (PSV in cm/s): 150 Right bulb/internal carotid artery peak systolic velocity (PSV in cm/s): 166 Right internal carotid artery end diastolic velocity (EDV in cm/s): 35 Right ICA/CCA peak systolic ratio: 1.1 Right external carotid artery peak systolic velocity (PSV in cm/s): 490 Right vertebral artery antegrade flow: yes There is mild carotid bulb plaque with discordant mildly elevated velocity. Visually, less than 50% stenosis category. LEFT SIDE: Left common carotid artery peak systolic velocity (PSV in cm/s): 177 Left bulb/internal carotid artery peak systolic velocity (PSV in cm/s): 157 Left internal carotid artery end diastolic velocity (EDV in cm/s): 20 Left ICA/CCA peak systolic ratio: 0.9 Left external carotid artery peak systolic velocity (PSV in cm/s): 320 Left vertebral artery antegrade flow: Reversed. Subclavian steal. There is mild carotid bulb plaque with discordant mildly elevated velocity. Visually, less than 50% stenosis category. IMPRESSION: 1. Less than 50 percent stenosis in the right internal carotid artery. 2. Less than 50 percent stenosis in the left internal carotid artery. 3. Left vertebral artery flow reversal suggesting subclavian artery stenosis. Reviewed, dictated and finalized at location B. WHAT INSPECTOR AND PACKER
--- NOTE | 2021-02-12 20:27 | ECG_ITS ---
Measurements Intervals [place] Rate: 64 P: 61 PA: 175 QRS: 24 QRSD: 87 T: 96 QT: 415 QTc: 431 Interpretive Statements SINUS RHYTHM NONSPECIFIC ST & T-WAVE ABNORMALITY- ANTEROLAT/HIGH LAT LEADS BASELINE ARTIFACT- I, II, III, AVR, AVL, AVF BORDERLINE ECG Electronically Signed On 02-13-2021 6:06:38 [employer] by Shon Daniels D.O.
[2021-02-12 20:36] LABS: Basophils Absolute Auto 0.1 K/mm3 (0.0-0.1); Basophils Percent Auto 0.6 % (0.2-1.2); Eosinophils Absolute Auto 0.1 K/mm3 (0-0.3); Eosinophils Percent Auto 0.3 % (0-4.4); Hemoglobin 9.5 g/dL (12.0-15.0); Immature Granulocyte Absolute 0.08 K/mm3 (0.00-0.031); Immature Granulocyte Percent A 0.5 % (0-0.5); Lymphocytes Absolute Auto 6.98 K/mm3 (0.9-3.2); Lymphocytes Percent Auto 44.7 % (18.3-44.2); Mean Corpuscular HGB Conc 30.6 g/dl (32-36); Mean Corpuscular Hemoglobin 27.7 pg (26-34); Mean Corpuscular Volume 90.4 fl (80-100); Mean Platelet Volume 12.3 fl (7.4-10.4); Monocytes Percent Auto 6.4 % (2.6-8.5); Neutrophils Absolute Auto 7.4 K/mm3 (1.3-6.7); Neutrophils Percent Auto 47.5 % (45.5-73.1); Platelet Count Result 146 k/mm3 (150-375); Red Blood Count 3.43 M/mm3 (4.2-5.4); Red Cell Distribution Width 14.4 % (11.5-14.5); White Blood Count 15.6 K/mm3 (4.5-10.0)
[2021-02-12 20:49] LABS: Atypical Lymphocytes Present; Platelet Estimate Adequate (Adequate)
[2021-02-12 21:27] LABS: Anion Gap 8 mmol/L (8-16); Blood Urea Nitrogen 12 mg/dL (7-17); Calcium 8.9 mg/dL (8.4-10.2); Carbon Dioxide 30 mmol/L (22-30); Chloride 103 mmol/L (98-107); Estimated CRCL calculation 120 ml/min; Estimated Glomerular Filt Rate > 60; Glucose 104 mg/dL (65-110); Potassium 3.5 mmol/L (3.4-5.0); Sodium 141 mmol/L (137-145)
[2021-02-12 21:43] LABS: Troponin I 0.201 ng/mL (0.000-0.034)
--- NOTE | 2021-02-12 22:10 | ED.CHESTPAIN ---
HPI - Chest Pain General Chief Complaint: Chest Pain Stated Complaint: abnormal labs Time Seen by Provider: 02/12/21 19:44 Source: patient Mode of arrival: ambulatory Limitations: no limitations History of Present Illness HPI narrative: 60-year-old with a history of hypertension and CAD was told by hospital staff to return to the ER. Patient states that she was admitted 2 days ago for nosebleed had surgery done by Dr. Cortez to stop the bleeding however while she was in the hospital she started having pain while she was walking around the nurses station. She had EKG done at that time which was unremarkable followed by 2 sets of troponin which were negative patient was discharged home. She had a third troponin drawn and was discharged home before it was resulted . Patient presently has no chest pain she states that she is occasionally short of breath because her nose is clogged up. Patient states that she has 2 stents in 2012 and she presently follows with Dr. Eddie MURRAY complaint: chest discomfort Pertinent past history: coronary artery disease Onset (ago): day(s) (1) Timing of current episode: now resolved Prior episodes: Yes Onset: during exertion Pain location: substernal Pain radiation: none Severity: moderate Quality: heaviness Relieving factors: nothing Exacerbating factors: nothing Context: recent surgery (had nose cauterization) Risk Factors Coronary artery disease risk factors: hypertension Related Data Home Medications Medication Instructions Recorded Confirmed loratadine [Claritin] 10 mg PO DAILY 04/01/20 02/10/21 aspirin 81 mg tablet,delayed 81 mg PO DAILY 05/28/20 02/10/21 release rosuvastatin 40 mg tablet 40 mg PO DAILY 05/28/20 02/10/21 escitalopram oxalate [Lexapro] 10 mg PO HS 12/30/20 02/10/21 Azo Cranberry 250 mg PO DAILY 02/10/21 02/10/21 bupropion HCl [Wellbutrin XL] 300 mg PO QAM 02/10/21 02/10/21 cinnamon bark [Cinnamon] 500 mg PO DAILY 02/10/21 02/10/21 diclofenac sodium [Voltaren 2 g TOPICAL QID 02/10/21 02/10/21 Arthritis Pain] gabapentin [Neurontin] 600 mg PO BID 02/10/21 02/10/21 omeprazole 40 mg PO DAILY 02/10/21 02/10/21 Allergies Allergy/AdvReac Type Severity Reaction Status Date / Time hydromorphone Allergy Unknown Rash Verified 02/12/21 20:01 terbinafine Allergy Unknown Rash Verified 02/12/21 20:01 Review of Systems Review of Systems: All systems reviewed & are unremarkable except as noted in HPI and below Constitutional: Constitutional: Reports no additional constitutional complaints Eyes: Eyes: Reports no additional eye complaints ENT: Reports system reviewed and no additional complaints, except as documented Cardiovascular: Cardiovascular: Reports as per HPI Respiratory: Respiratory: Reports no additional respiratory complaints Gastrointestinal: Gastrointestinal: Reports no additional gastrointestinal complaints Genitourinary: Genitourinary: Reports no additional female genitourinary complaints Musculoskeletal: Musculoskeletal: Reports no additional musculoskeletal complaints Integumentary/Breasts: Skin/Breast: Reports system reviewed and no additional complaints, except as docu Neurologic: Reports system reviewed and no additional complaints, except as documented Psychiatric: Psychiatric: Reports no additional psychiatric complaints PMFSH Past Medical History Medical History Adenomatous colon polyp Bilateral cataracts BMI 34.0-34.9,adult CAD in [place] artery Chronic diarrhea Chronic narcotic use Depression Essential (primary) hypertension Exocrine pancreatic insufficiency GERD (gastroesophageal reflux disease) Heart attack History of ectopic Low back pain Low vitamin D level Mixed hyperlipidemia Neuropathy GRANT (obstructive sleep apnea) Osteoporosis Pre-diabetes Restless leg syndrome Tobacco abuse Surgical History Surgical History H/
[2021-02-12] MEDS: lisinopriL 20 MG TABLET 40 MG PO (22:25)
[2021-02-13] VITALS (13 sets, daily range): BP systolic 114–180; BP diastolic 50–70; PULSE 62–666; RESP 12–20; TEMP 36.3–36.8; O2SAT 93–98
--- NOTE | 2021-02-13 00:56 | PC.NURSE ---
This patient, Karen Stuart, was admitted to IMU Room 205-01 at 2305 on 02/12/21. Patient/family oriented to hospital policies and general routines including ID bracelet, bed and alarms, visiting hours, pain management, procedures, bathroom and other care routines, personal items, smoking policy, room service/diet, and visiting hours. Information on how to activate the Rapid Response Team has been discussed. Patient/Family are encouraged to report perceived risks to care and to ask questions if they do not understand what they are told or what they should do.
[2021-02-13 01:41] LABS: Troponin I 0.382 ng/mL (0.000-0.034)
--- NOTE | 2021-02-13 03:02 | ECG_ITS ---
Measurements Intervals [place] Rate: 72 P: 68 PA: 177 QRS: 24 QRSD: 81 T: 112 QT: 403 QTc: 441 Interpretive Statements SINUS RHYTHM LEFT VENTRICULAR HYPERTROPHY WITH ST-T CHANGE NONSPECIFIC ST & T-WAVE ABNORMALITY- DIFFUSE LEADS BASELINE ARTIFACT- I, II, III, AVR, AVL, AVF, V1-V3 BORDERLINE ECG Electronically Signed On 02-13-2021 10:53:34 WOOL FLEECE SORTER by Shon Daniels D.O.
[2021-02-13] MEDS: HYDROcodone/acetaminophen (*CRX) 5-325 MG TABLET 1 TAB PO ×5 (03:11→23:01)
[2021-02-13] MEDS: SODIUM CHLORIDE 0.9% IV 1,000 ML 75 ML IV CONT (03:16)
--- NOTE | 2021-02-13 03:53 | PM.IMHP ---
H&P: HPI History of Present Illness Date/Time: 02/13/21 03:53 Chief Complaint: Elevated troponin Narrative: 60-year-old with a history of hypertension and CAD who was told by hospital staff to return to the ER for further evaluation. Patient states that she was admitted 2 days ago for nosebleed had surgery done by Dr. Cortez to stop the bleeding which has been profuse. However while she was in the hospital she ambulated yesterday in the afternoon and had some chest pain which radiated to her both arms and her jaw lasted for few minutes resolve with rest and has not recurred since then. She had an EKG done at that time which was unremarkable followed by 2 sets of troponin which came back negative as well. She did have 3rd set drawn just prior to discharge which was not back until she was discharged. The 3rd troponin came back elevated and hence he was summoned back to the ER for evaluation and readmission. She states she has not had any chest pain since then. No diaphoresis no nausea vomiting. She continues to talk about how profusely she bled from her nose and also noted that her hemoglobin has dropped from 13 on the day of admission to 8.9. She also reports he takes different pain medication for her chronic back pain and was focused on discussing that during my evaluation. She does have history of coronary stents back in [address] Morgan. She has not had any stress test or cardiac catheterization for many years. Review of Systems Review of Systems: - CONSTITUTIONAL: Denies weight loss, fever and chills. - HEENT: Denies changes in vision and hearing - RESPIRATORY: Denies SOB and cough. - CV: Denies palpitations and reports CP. - GI: Denies abdominal pain, nausea, vomiting and diarrhea. - : Denies dysuria and urinary frequency. - MSK: Denies myalgia and joint pain. Reports chronic back pain - SKIN: Denies rash and pruritus. - NEUROLOGICAL: Denies headache and syncope. - PSYCHIATRIC: Denies recent changes in mood. Denies anxiety and depression. All systems reviewed & are unremarkable except as noted in HPI and below Constitutional: Constitutional: Reports fatigue and Reports weakness Neurologic: Reports weakness Endocrine: Endocrine: Reports fatigue PMFSH Past Medical History Medical History Adenomatous colon polyp Bilateral cataracts BMI 34.0-34.9,adult CAD in [place] artery Chronic diarrhea Chronic narcotic use Depression Essential (primary) hypertension Exocrine pancreatic insufficiency GERD (gastroesophageal reflux disease) Heart attack History of ectopic Low back pain Low vitamin D level Mixed hyperlipidemia Neuropathy GRANT (obstructive sleep apnea) Osteoporosis Pre-diabetes Restless leg syndrome Tobacco abuse Surgical History Surgical History H/O heart artery stent H/O spinal fusion History of surgical removal of ganglion cyst S/P bladder repair S/P S/P laparoscopic cholecystectomy S/P partial hysterectomy Family History Family History Mother Cerebrovascular accident Family history of lung cancer Grandparent No problems noted. Father Family history of cardiovascular disease Sibling Cerebral palsy Other Carcinoma of colon Hypertension Social History Social History (Updated 02/11/21 @ 13:47 by Loretta Alexis PA-C) Smoking packs per day: 1 Smoking cigarettes per day: 20.0 Smoking status: Current every day smoker Tobacco type: cigarettes Second hand tobacco smoke exposure: Yes Alcohol intake: current Drinks per week: 1 Alcohol use details: occasional wine Substance use: never Substance use type: opiates Other substance usage details: norco/acetaminophen two 5/325mg every 4-6 hours prn Last use: daily Additional living arran
[2021-02-13 05:20] LABS: Troponin I 0.322 ng/mL (0.000-0.034)
[2021-02-13] MEDS: ASPIRIN 81 MG CHEWABLE TABLET PO (08:23)
[2021-02-13] MEDS: NITROGLYCERIN OINTMENT 1 INCH DOSE TRANSDERM (08:24)
[2021-02-13] MEDS: LORATADINE 10 MG TABLET PO (08:26)
[2021-02-13] MEDS: buPROPion HCL XL (24 HR) 150 MG TABCR 300 MG PO (08:26)
[2021-02-13] MEDS: GABAPENTIN 300 MG CAPSULE 600 MG PO ×2 (08:26→23:03)
[2021-02-13] MEDS: PANTOPRAZOLE 40 MG TABLET PO ×2 (08:26→17:25)
[2021-02-13] MEDS: ROSUVASTATIN 10 MG TABLET 40 MG PO (08:27)
[2021-02-13] MEDS: lisinopriL 20 MG TABLET 40 MG PO (08:27)
--- NOTE | 2021-02-13 08:44 | ECG_ITS ---
Measurements Intervals [place] Rate: 54 P: 64 [place]: 177 QRS: 29 QRSD: 87 T: 77 QT: 420 QTc: 402 Interpretive Statements SINUS BRADYCARDIA NONSPECIFIC ST & T-WAVE ABNORMALITY- ANTEROLAT/HIGH LAT LEADS BASELINE WANDER- I, II, V1 BORDERLINE ECG Electronically Signed On 02-13-2021 10:58:28 RESTAURANT HOURLY TEAM MEMBER by Shon Daniels D.O.
[2021-02-13 09:08] LABS: Basophils Absolute Auto 0.1 K/mm3 (0.0-0.1); Basophils Percent Auto 0.7 % (0.2-1.2); Eosinophils Absolute Auto 0.1 K/mm3 (0-0.3); Eosinophils Percent Auto 0.7 % (0-4.4); Hemoglobin 9.2 g/dL (12.0-15.0); Immature Granulocyte Absolute 0.05 K/mm3 (0.00-0.031); Immature Granulocyte Percent A 0.4 % (0-0.5); Immature Platelet Fraction Pct 12.4 % (0.9-11.2); Lymphocytes Absolute Auto 6.94 K/mm3 (0.9-3.2); Lymphocytes Percent Auto 50.5 % (18.3-44.2); Mean Corpuscular HGB Conc 30.7 g/dl (32-36); Mean Corpuscular Volume 91.5 fl (80-100); Mean Platelet Volume 11.9 fl (7.4-10.4); Monocytes Absolute Auto 0.7 K/mm3 (0.1-0.6); Monocytes Percent Auto 5.1 % (2.6-8.5); Neutrophils Absolute Auto 5.9 K/mm3 (1.3-6.7); Neutrophils Percent Auto 42.6 % (45.5-73.1); Platelet Count Result 133 k/mm3 (150-375); Red Blood Count 3.28 M/mm3 (4.2-5.4); Red Cell Distribution Width 14.5 % (11.5-14.5); White Blood Count 13.8 K/mm3 (4.5-10.0)
[2021-02-13 09:20] LABS: Alanine Aminotransferase 16 U/L (4-35); Albumin Level 3.6 g/dL (3.5-5.1); Alkaline Phosphatase 54 U/L (38-126); Anion Gap 4 mmol/L (8-16); Aspartate Amino Transferase 27 U/L (14-36); Bilirubin,Total 0.2 mg/dL (0.2-1.3); Blood Urea Nitrogen 14 mg/dL (7-17); Calcium 8.4 mg/dL (8.4-10.2); Carbon Dioxide 30 mmol/L (22-30); Chloride 102 mmol/L (98-107); Estimated CRCL calculation 120 ml/min; Estimated Glomerular Filt Rate > 60; Glucose 104 mg/dL (65-110); Potassium 3.5 mmol/L (3.4-5.0); Sodium 136 mmol/L (137-145)
--- NOTE | 2021-02-13 09:28 | PM.CNCAR ---
Assessment and Plan Assessment and plan (1) Non-ST elevation CA (NSTEMI): Code(s): I21.4 - Non-ST elevation (NSTEMI) myocardial infarction Status: Acute Assessment and Plan: Transient chest pain resolved spontaneously yesterday afternoon without recurrence of angina yet with 3rd troponin positive with continued upward trend. Repeat 12 lead EKG today ordered. Patient is a history of CAD with remote stent implantation. Suspect small acute plaque rupture complicated by increased myocardial demand secondary to anemia. Patient is currently stable without recurrent angina. -very lengthy discussion with patient with regards to bleeding risk given significant epistaxis resulting in approximately 4 g reduction in hemoglobin over the past 3 days and risk for recurrence of bleeding and or poor tolerance with systemic anticoagulation and dual antiplatelet therapy. Given this circumstance, proceed with coronary angiography and likely stent implantation relatively contraindicated due to bleeding risk. Patient verbalized understanding. If she has recurrent and or unstable symptoms or ST elevations by EKG we will have no choice but to proceed to the cardiac catheterization lab. While my recommendation is to pursue coronary angiography, given the circumstances doing so may place the patient at potentially grave risk should she have significant recurrent bleeding on antiplatelet and anticoagulant therapy with percutaneous intervention and/or stent implantation. This circumstance would prohibit discontinuation of antiplatelet therapy without a marked increase in stent thrombosis and potential life-threatening myocardial infarction. As such, it would be prudent to delay until stability of H&H without evidence of ongoing/recurrent bleeding after being challenged with dual antiplatelet therapy. Discussed this case in detail with my interventional partner Dr. Gamble who agrees with this plan of care and that angiography at this time not advised. We will plan for coronary angiography it if hemoglobin is stable without recurrent bleeding on antiplatelet therapy provided she is clinically stable in the near future. For now, conservative medical management cleaning aspirin, statin, BP control, avoidance of NSAIDs. Add metoprolol 25 mg b.i.d.. Nitrate therapy as required. Obtain 2D echocardiogram to evaluate LV function, wall motion. Confer with ENT anticipated bleeding risk and if they felt ok with DAPT at this time. We had discussed risks, benefits, alternatives to coronary angiography. All questions answered to her satisfaction. We also discussed it would not be recommended to pursue noninvasive ischemic evaluation at this time in the setting of an acute NSTEMI. Patient verbalized understanding and agreed. (2) Essential (primary) hypertension: Code(s): I10 - Essential (primary) hypertension Status: Acute Assessment and Plan: Improved BP control. Add amlodipine 5 mg daily BP remains significantly elevated. (3) Blood loss anemia: Code(s): D50.0 - Iron deficiency anemia secondary to blood loss (chronic) Status: Acute Assessment and Plan: Follow H&H closely. No further decline transfusion may be warranted but not at this time. Patient denies bright red blood per rectum or black tarry stools, hematoma. (4) Claudication in peripheral vascular disease: Code(s): I73.9 - Peripheral vascular disease, unspecified Status: Acute Assessment and Plan: Patient reports progressive symptoms in the right lower extremity after CT abdomen pelvis revealed high-grade stenosis right iliac artery. Lower extremity BEATRIZ arterial Doppler. Carotid bruit noted on examination. Obtain carotid arterial duplex ultrasound. (5) CAD in [place] artery: Code(s): I25.10 - Atherosclerotic heart disease of [place] coronary artery without angina pectoris Status: Acute Assessment and Plan: As above. (6) Acute posterior epis
--- NOTE | 2021-02-13 10:28 | ECHO_ITS ---
Patient Info Name: Karen Stuart Age: 60 years : 1960 Gender: Female Ht: 65 in Wt: 209 lbs BSA: 2.12 m2 HR: 65 bpm BP: 180 / 65 mmHg Heart Rhythm: Sinus Rhythm Technical Quality: Good Exam Date: 02/13/2021 11:18 AM Exam Location: [facility] Patient Status: Outpatient Admit Date: 02/12/2021 Staff Ordering Physician: Deon Morgan MD Enterprise Integration Architect: clementina herrera Attending Provider: Loretta Alexis PA-C Referring Physician: Eddie FREEMAN; Exam Type: CA echo doppler color flow Study Info Indications - elevated troponin - cad R07.89 - Other chest pain Complete two-dimensional, color flow and Doppler transthoracic echocardiogram is performed. Summary 1. Complete two-dimensional, color flow and Doppler transthoracic echocardiogram is performed. 2. Left ventricular chamber dimension is normal. 3. Left ventricular systolic function is hyperdynamic, estimated at >70%. 4. There is mildly increased left ventricular wall thickness. 5. The left ventricular diastolic function is grade II diastolic dysfunction. 6. There is mild aortic valve stenosis peak velocity 2.1 m/sec mean gradient 9 mm Hg and a calculated valve area 1.6 cm2. 7. There is mild mitral valve regurgitation. 8. There is mild tricuspid valve regurgitation. 9. Mild pulmonary hypertension, estimated pulmonary arterial systolic pressure is 39 mmHg. Left Ventricle Left ventricular chamber dimension is normal. Left ventricular systolic function is hyperdynamic, estimated at >70%. There is mildly increased left ventricular wall thickness. The left ventricular diastolic function is grade II diastolic dysfunction. Right Ventricle Right ventricular chamber dimension is normal. Right ventricular systolic function is normal. Left Atria Left atrial chamber dimension is mildly enlarged. Right Atria Right atrial chamber dimension is normal. Aortic Valve The aortic valve is trileaflet. There is mild aortic valve sclerosis. There is mild aortic valve stenosis peak velocity 2.1 m/sec mean gradient 9 mm Hg and a calculated valve area 1.6 cm2. There is no aortic valve regurgitation. Pulmonic Valve The pulmonic valve is not well visualized. Mitral Valve The mitral valve has normal leaflets. There is mild mitral valve regurgitation. The mitral valve annulus is mildly calcified. Tricuspid Valve The tricuspid valve leaflets are normal. There is mild tricuspid valve regurgitation. Mild pulmonary hypertension, estimated pulmonary arterial systolic pressure is 39 mmHg. Pericardium/Pleural The pericardium appears epicardial fat pad. Inferior Vena Cava Normal inferior vena cava with >50% collapse upon inspiration consistent with normal right atrial pressure, 5 mmHg. Aorta The aortic root size at the sinus of Valsalva is normal. There is mild aortic atherosclerosis. Left Ventricular Outflow Tract Name Value Normal LVOT 2D LVOT Diameter 1.8 cm LVOT Doppler LVOT Peak Gradient 7 mmHg LVOT Mean Gradient 3 mmHg LVOT VTI
[2021-02-13] MEDS: CLOPIDOGREL BISULFATE 75 MG TABLET PO (12:08)
[2021-02-13] MEDS: DICLOFENAC SODIUM 1% 100 GM GEL (*BKC) 1 APPLIC TOPICAL ×2 (12:09→17:26)
--- NOTE | 2021-02-13 15:09 | PM.IMPN ---
Progress Note: A&P Assessment and Plan (1) Non-ST elevation [place] (NSTEMI): Code(s): I21.4 - Non-ST elevation (NSTEMI) myocardial infarction Status: Acute Assessment and Plan: -EKG with no new changes noted, no prior EKG to review. Initial troponin was negative which has continue to rise. Except for the initial chest pressure on exertion suggestive of anginal pain she has not had any further chest pains reported. Her elevated troponin in the setting of recent profuse nasal bleed requiring multiple interventions including rhino rocket in the beginning to cauterization and concurrent abrupt drop in her hemoglobin from 13 to 9 suggest most likely type 2 myocardial infarction related to demand ischemia. With recent bleeding and recent drop in H&H and no active chest pain or acute ST-T changes in EKG, I will refrain from using anticoagulant therapy at this time. I will certainly resume her aspirin and statin as she normally takes. She is not on beta tor which I will add a small dose as tolerated by her blood pressure/heart rate. Her chest pain character and quality that she had earlier does seem concerning for underlying progression of coronary artery disease and requires further assessment in short future whether with the coronary angiogram versus stress test. I will await Cardiology assessment and discussion for further direction on in this evaluation. She does continue to smoke and has underlying hyperlipidemia which is not optimally controlled but I do not have a recent lipid profile. We will get new lipid panel. -Pt evaluated by cardiology today. Dr. Morgan suspects small acute plaque rupture complicated by increased myocardial demand secondary to anemia. -Please see cardiology note for complete details regarding plan. In short, we will initiate dual antiplatelet therapy with close monitoring of her anemia. If stable without recurrent bleeding we will consider coronary angiography. For now, conservative medical management cleaning aspirin, statin, BP control, avoidance of NSAIDs. Add metoprolol 25 mg b.i.d.. Nitrate therapy as required. Obtain 2D echocardiogram to evaluate LV function, wall motion. -Also discussed with ENT who states as the sphenopalatine artery was removed, the bleeding risk is low and he is in agreement with initiating dual antiplatelet therapy. (2) Acute posterior epistaxis: Code(s): R04.0 - Epistaxis Status: Acute Assessment and Plan: -seen in ED by ENT who identified sphenopalatine artery bleed -s/p bilateral nasal endoscopy, left-sided middle turbinectomy, left-sided maxillary antrostomy, left-sided sphenopalatine artery ligation all endoscopic performed by Dr. Cortez. POD #2. -bleeding resolved at this time -H/H stable 9.2/30.0 this morning (3) CAD in [place] artery: Code(s): I25.10 - Atherosclerotic heart disease of [place] coronary artery without angina pectoris Status: Acute Assessment and Plan: -coronary artery disease status post stents 2012 (4) Essential (primary) hypertension: Code(s): I10 - Essential (primary) hypertension Status: Acute Assessment and Plan: -hypertension optimal continue home medication (5) Mixed hyperlipidemia: Code(s): E78.2 - Mixed hyperlipidemia Status: Acute Assessment and Plan: -hyperlipidemia recheck lipid profile (6) Claudication in peripheral vascular disease: Code(s): I73.9 - Peripheral vascular disease, unspecified Status: Acute Assessment and Plan: -peripheral artery disease with noted severe stenosis of right common iliac artery from CT abdomen from January 16, 2021. Will get arterial duplex right lower extremity. She does report intermittent claudication symptoms and will need vascular surgery evaluation as an outpatient basis (7) Low back pain: Qualifiers: Chronicity: acute Back pain laterality: midline
[2021-02-13] MEDS: ESCITALOPRAM OXALATE 10 MG TABLET PO (23:04)
[2021-02-13] MEDS: rOPINIRole HCL 1 MG TABLET PO (23:08)
[2021-02-14] VITALS (9 sets, daily range): BP systolic 110–142; BP diastolic 48–81; PULSE 58–96; RESP 16–18; TEMP 36.1–36.4; O2SAT 96–99
[2021-02-14] MEDS: HYDROcodone/acetaminophen (*CRX) 5-325 MG TABLET 1 TAB PO ×2 (03:42→09:35)
[2021-02-14 04:42] LABS: Basophils Absolute Auto 0.1 K/mm3 (0.0-0.1); Basophils Percent Auto 0.7 % (0.2-1.2); Eosinophils Absolute Auto 0.2 K/mm3 (0-0.3); Eosinophils Percent Auto 1.3 % (0-4.4); Hematocrit 30.6 % (37.0-47.0); Hemoglobin 9.3 g/dL (12.0-15.0); Immature Granulocyte Absolute 0.04 K/mm3 (0.00-0.031); Immature Granulocyte Percent A 0.3 % (0-0.5); Immature Platelet Fraction Pct 12.1 % (0.9-11.2); Lymphocytes Absolute Auto 6.24 K/mm3 (0.9-3.2); Lymphocytes Percent Auto 46.5 % (18.3-44.2); Mean Corpuscular HGB Conc 30.4 g/dl (32-36); Mean Corpuscular Hemoglobin 27.4 pg (26-34); Mean Platelet Volume 11.9 fl (7.4-10.4); Monocytes Absolute Auto 0.8 K/mm3 (0.1-0.6); Monocytes Percent Auto 5.8 % (2.6-8.5); Neutrophils Absolute Auto 6.1 K/mm3 (1.3-6.7); Neutrophils Percent Auto 45.4 % (45.5-73.1); Nucleated Red Blood Cells Perc 0.1 % (0.0-0.2); Platelet Count Result 132 k/mm3 (150-375); Red Cell Distribution Width 14.4 % (11.5-14.5); White Blood Count 13.4 K/mm3 (4.5-10.0)
[2021-02-14 04:57] LABS: Alanine Aminotransferase 16 U/L (4-35); Albumin Level 3.7 g/dL (3.5-5.1); Alkaline Phosphatase 65 U/L (38-126); Anion Gap 6 mmol/L (8-16); Aspartate Amino Transferase 23 U/L (14-36); Bilirubin,Total 0.3 mg/dL (0.2-1.3); Blood Urea Nitrogen 11 mg/dL (7-17); Calcium 8.9 mg/dL (8.4-10.2); Carbon Dioxide 33 mmol/L (22-30); Chloride 101 mmol/L (98-107); Cholesterol 122 mg/dL (0-200); Estimated CRCL calculation 102 ml/min; Estimated Glomerular Filt Rate > 60; Glucose 115 mg/dL (65-110); HDL Direct 48 mg/dL; Potassium 3.5 mmol/L (3.4-5.0); Sodium 140 mmol/L (137-145); Triglycerides 119 mg/dL (<150)
[2021-02-14 05:04] LABS: Atypical Lymphocytes Present
[2021-02-14 05:08] LABS: LDL Cholesterol Direct 52 mg/dL
[2021-02-14] MEDS: ASPIRIN 81 MG CHEWABLE TABLET PO (09:35)
[2021-02-14] MEDS: buPROPion HCL XL (24 HR) 150 MG TABCR 300 MG PO (09:36)
[2021-02-14] MEDS: DICLOFENAC SODIUM 1% 100 GM GEL (*BKC) 1 APPLIC TOPICAL (09:36)
[2021-02-14] MEDS: CLOPIDOGREL BISULFATE 75 MG TABLET PO (09:36)
[2021-02-14] MEDS: lisinopriL 20 MG TABLET 40 MG PO (09:40)
[2021-02-14] MEDS: GABAPENTIN 300 MG CAPSULE 600 MG PO (09:40)
[2021-02-14] MEDS: LORATADINE 10 MG TABLET PO (09:40)
[2021-02-14] MEDS: PANTOPRAZOLE 40 MG TABLET PO (09:40)
[2021-02-14] MEDS: ROSUVASTATIN 10 MG TABLET 40 MG PO (09:41)
--- NOTE | 2021-02-14 12:30 | PM.PNCARD ---
Progress Note: A&P Assessment and Plan (1) Non-ST elevation NV (NSTEMI): Code(s): I21.4 - Non-ST elevation (NSTEMI) myocardial infarction Status: Acute Assessment and Plan: Small non ST-elevation NV, remains asymptomatic. Continue dual antiplatelet therapy with aspirin 81 mg daily and clopidogrel 75 mg daily. Monitor for bleeding very closely. Will plan for outpatient cardiac catheterization within next 1-2 weeks provided CBC remains stable and patient remains relatively asymptomatic. If patient has recurrent chest pain she has been advised to return to the emergency department immediately via EMS. Patient verbalized understanding and agreed. Continue statin and beta-tor therapy. Patient advised to avoid strenuous or sexual activity until advised. Limit activity to avoid stress. Patient comfortable with plan of care and would like to be discharged home today. I would like for her to ambulate in the halls prior to discharge observe tolerance. Disposition per hospitalist service. H&H has been stable since admission. (2) Essential (primary) hypertension: Code(s): I10 - Essential (primary) hypertension Status: Acute Assessment and Plan: Improved BP control. Add amlodipine 5 mg daily BP remains significantly elevated. (3) Blood loss anemia: Code(s): D50.0 - Iron deficiency anemia secondary to blood loss (chronic) Status: Acute Assessment and Plan: Follow H&H closely. No further decline in H&H. No recurrent significant epistaxis. Continue to monitor closely. The to demonstrate tolerance on dual antiplatelet therapy prior to proceeding with intervention an additional anticoagulant therapy. Patient denies bright red blood per rectum or black tarry stools, hematoma. (4) Claudication in peripheral vascular disease: Code(s): I73.9 - Peripheral vascular disease, unspecified Status: Acute Assessment and Plan: Patient reports progressive symptoms in the right lower extremity after CT abdomen pelvis revealed high-grade stenosis right iliac artery. Lower extremity BEATRIZ arterial Doppler. Less than 50% stenosis bilaterally however flow reversal vertebral arteries consistent with left subclavian stenosis. Lower extremity arterial Dopplers consistent with moderate disease on the right minimal on the left. Evidence of discrepant brachial blood pressures consistent with left subclavian stenosis. CT angiography of the chest as an outpatient. Patient is asymptomatic in this regard at this time. Additional workup for her peripheral tear disease is clinically appropriate. Counseled on red flag symptoms as previously. She has stable mild claudication symptoms. Anticipate angiography in the left groin or right radial access site. (5) CAD in [place] artery: Code(s): I25.10 - Atherosclerotic heart disease of [place] coronary artery without angina pectoris Status: Acute Assessment and Plan: As above. (6) Acute posterior epistaxis: Code(s): R04.0 - Epistaxis Status: Acute Assessment and Plan: Currently resolved postop surgical intervention. Continue to monitor closely. (7) Mixed hyperlipidemia: Code(s): E78.2 - Mixed hyperlipidemia Status: Acute Assessment and Plan: Continue rosuvastatin 40 mg at bedtime (8) GRANT (obstructive sleep apnea): Code(s): G47.33 - Obstructive sleep apnea (adult) (pediatric) Status: Acute Assessment and Plan: Patient has a history of intolerance to CPAP. (9) Tobacco abuse: Code(s): Z72.0 - Tobacco use Status: Acute Assessment and Plan: Smoking cessation counseling. Subjective Date/time seen: Date of service: 02/14/21 12:30 Follow-up for non ST-elevation NV, chest pain Patient feeling well. No shortness of breath or chest pain. Denies significant bleeding although has small clots coming from her nose still. No dizziness. Tolerating medication
--- NOTE | 2021-02-14 15:49 | PM.DS ---
DS: Admitting Diagnosis Discharge Date 02/18/21 Admitting Diagnosis Elevated troponin DS: Discharge Diagnosis Discharge Diagnosis (1) Non-ST elevation [place] (NSTEMI): Code(s): I21.4 - Non-ST elevation (NSTEMI) myocardial infarction Status: Acute Assessment and Plan: -EKG with no new changes noted, no prior EKG to review. Initial troponin was negative which has continue to rise. Except for the initial chest pressure on exertion suggestive of anginal pain she has not had any further chest pains reported. Her elevated troponin in the setting of recent profuse nasal bleed requiring multiple interventions including rhino rocket in the beginning to cauterization and concurrent abrupt drop in her hemoglobin from 13 to 9 suggest most likely type 2 myocardial infarction related to demand ischemia. With recent bleeding and recent drop in H&H and no active chest pain or acute ST-T changes in EKG, I will refrain from using anticoagulant therapy at this time. I will certainly resume her aspirin and statin as she normally takes. She is not on beta tor which I will add a small dose as tolerated by her blood pressure/heart rate. Her chest pain character and quality that she had earlier does seem concerning for underlying progression of coronary artery disease and requires further assessment in short future whether with the coronary angiogram versus stress test. I will await Cardiology assessment and discussion for further direction on in this evaluation. She does continue to smoke and has underlying hyperlipidemia which is not optimally controlled but I do not have a recent lipid profile. We will get new lipid panel. -Pt evaluated by cardiology today. Dr. Morgan suspects small acute plaque rupture complicated by increased myocardial demand secondary to anemia. -Please see cardiology note for complete details regarding plan. In short, we will initiate dual antiplatelet therapy with close monitoring of her anemia. If stable without recurrent bleeding we will consider coronary angiography. For now, conservative medical management cleaning aspirin, statin, BP control, avoidance of NSAIDs. Add metoprolol 25 mg b.i.d.. Nitrate therapy as required. Obtain 2D echocardiogram to evaluate LV function, wall motion. -Also discussed with ENT who states as the sphenopalatine artery was removed, the bleeding risk is low and he is in agreement with initiating dual antiplatelet therapy. (2) Acute posterior epistaxis: Code(s): R04.0 - Epistaxis Status: Acute Assessment and Plan: -seen in ED by ENT who identified sphenopalatine artery bleed -s/p bilateral nasal endoscopy, left-sided middle turbinectomy, left-sided maxillary antrostomy, left-sided sphenopalatine artery ligation all endoscopic performed by Dr. Cortez. POD #3 -bleeding resolved at this time -H/H stable 9.2/30.0 this morning (3) CAD in [place] artery: Code(s): I25.10 - Atherosclerotic heart disease of [place] coronary artery without angina pectoris Status: Acute Assessment and Plan: -coronary artery disease status post stents 2012 (4) Essential (primary) hypertension: Code(s): I10 - Essential (primary) hypertension Status: Acute Assessment and Plan: -hypertension optimal continue home medication (5) Mixed hyperlipidemia: Code(s): E78.2 - Mixed hyperlipidemia Status: Acute Assessment and Plan: -hyperlipidemia recheck lipid profile (6) Claudication in peripheral vascular disease: Code(s): I73.9 - Peripheral vascular disease, unspecified Status: Acute Assessment and Plan: -peripheral artery disease with noted severe stenosis of right common iliac artery from CT abdomen from January 16, 2021. Will get arterial duplex right lower extremity. She does report intermittent claudication symptoms and will need vascular surgery evaluation as an outpatient basis
== END 2021-02-14 16:56 | disposition home or self-care (01) ==
LOC: ANHED 20:13 → ANHIMU 22:34
PROVIDERS: Physician Assistant; Admitting Provider Internal Medicine; Emergency Provider Family Medicine; PCP Family Medicine; Visit Provider Family Medicine
DX: I21.4 Non-ST elevation (NSTEMI) myocardial infarction (principal); R77.8 Other specified abnormalities of plasma proteins; I73.9 Peripheral vascular disease, unspecified; D50.0 Iron deficiency anemia secondary to blood loss (chronic); E78.5 Hyperlipidemia, unspecified; F41.8 Other specified anxiety disorders; F17.210 Nicotine dependence, cigarettes, uncomplicated; F11.90 Opioid use, unspecified, uncomplicated; G25.81 Restless legs syndrome; G47.33 Obstructive sleep apnea (adult) (pediatric); G89.29 Other chronic pain; G62.9 Polyneuropathy, unspecified; K86.81 Exocrine pancreatic insufficiency; I10 Essential (primary) hypertension; I25.10 Atherosclerotic heart disease of native coronary artery without angina pectoris; K58.9 Irritable bowel syndrome, unspecified; K21.9 Gastro-esophageal reflux disease without esophagitis; M54.9 Dorsalgia, unspecified; M81.0 Age-related osteoporosis without current pathological fracture; R09.89 Other specified symptoms and signs involving the circulatory and respiratory systems; R73.03 Prediabetes; Z90.49 Acquired absence of other specified parts of digestive tract; Z95.5 Presence of coronary angioplasty implant and graft; Z90.710 Acquired absence of both cervix and uterus; Z98.1 Arthrodesis status; Z79.82 Long term (current) use of aspirin
CPT/HCPCS: 36415; 80048; 80053; 80061; 84484; 85025; 85055; 93005; 93306; 93880; 93923; 96360; 96361; 99291; A9270; G0378; J7030

== ENCOUNTER 2021-02-26 01:15 | Day surgery (SDC) | payer MEDICARE, MEDICAID, SELFPAY ==
[2021-02-25 10:56] VITALS: BMI 35.0
[2021-02-26] VITALS (10 sets, daily range): BP systolic 124–155; BP diastolic 47–70; PULSE 69–81; RESP 14–18; TEMP 36.4; O2SAT 92–96; BMI 28.9
[2021-02-26 07:48] LABS: Basophils Absolute Auto 0.1 K/mm3 (0.0-0.1); Basophils Percent Auto 0.7 % (0.2-1.2); Eosinophils Absolute Auto 0.3 K/mm3 (0-0.3); Hematocrit 37.6 % (37.0-47.0); Hemoglobin 11.3 g/dL (12.0-15.0); Immature Granulocyte Absolute 0.11 K/mm3 (0.00-0.031); Immature Granulocyte Percent A 0.7 % (0-0.5); Lymphocytes Absolute Auto 4.55 K/mm3 (0.9-3.2); Lymphocytes Percent Auto 27.2 % (18.3-44.2); Mean Corpuscular HGB Conc 30.1 g/dl (32-36); Mean Corpuscular Hemoglobin 27.1 pg (26-34); Mean Corpuscular Volume 90.2 fl (80-100); Mean Platelet Volume 11.4 fl (7.4-10.4); Monocytes Percent Auto 5.7 % (2.6-8.5); Neutrophils Absolute Auto 10.6 K/mm3 (1.3-6.7); Neutrophils Percent Auto 63.7 % (45.5-73.1); Platelet Count Result 300 k/mm3 (150-375); Red Blood Count 4.17 M/mm3 (4.2-5.4); Red Cell Distribution Width 14.6 % (11.5-14.5); White Blood Count 16.7 K/mm3 (4.5-10.0)
[2021-02-26 07:50] LABS: Anion Gap 14 mmol/L (8-16); Blood Urea Nitrogen 15 mg/dL (7-17); Calcium 9.5 mg/dL (8.4-10.2); Carbon Dioxide 26 mmol/L (22-30); Chloride 101 mmol/L (98-107); Estimated CRCL calculation 90 ml/min; Estimated Glomerular Filt Rate > 60; Glucose 136 mg/dL (65-110); Sodium 141 mmol/L (137-145)
--- NOTE | 2021-02-26 08:47 | WPDMODSED ---
Moderate Sedation Note-Pt Data Patient Data Diagnosis: Coronary artery disease with previous stenting of the diagonal Recent admission to the hospital with epistaxis and significant anemia, chest pain and elevated troponin in that setting Present Complaint: No complaints Procedure to be performed/Plan: Left heart catheterization Allergies Allergy/AdvReac Type Severity Reaction Status Date / Time hydromorphone Allergy Unknown Rash Verified 02/26/21 07:25 terbinafine Allergy Unknown Rash Verified 02/26/21 07:25 Home Medications Medication Instructions Recorded Confirmed Type loratadine [Claritin] 10 mg PO DAILY 04/01/20 02/25/21 History aspirin 81 mg tablet,delayed 81 mg PO DAILY 05/28/20 02/25/21 History release rosuvastatin 40 mg tablet 40 mg PO DAILY 05/28/20 02/25/21 History triamcinolone acetonide 0.5 % 1 applic TOPICAL BID PRN #15 g 07/03/20 02/25/21 Rx topical ointment escitalopram oxalate [Lexapro] 10 mg PO HS 12/30/20 02/25/21 History loperamide 2 mg capsule 2 mg PO Q6H PRN #90 cap 01/07/21 02/25/21 Rx lisinopril 40 mg tablet 40 mg PO DAILY #90 tablet 01/09/21 02/25/21 Rx hydrocodone 5 mg-acetaminophen 325 1 - 2 tablet PO Q4-6H PRN #180 01/20/21 02/25/21 Rx mg tablet tablet bupropion HCl [Wellbutrin XL] 300 mg PO QAM 02/10/21 02/25/21 History diclofenac sodium [Voltaren 2 g TOPICAL QID 02/10/21 02/25/21 History Arthritis Pain] omeprazole 40 mg PO DAILY 02/10/21 02/25/21 History clopidogrel 75 mg PO QAM #30 tablet 02/14/21 02/25/21 Rx gabapentin [Neurontin] 600 mg PO BID #60 cap 02/14/21 02/25/21 Rx nitroglycerin [Nitrostat] 0.4 mg SUBLINGUAL Q5MIN PRN #30 02/14/21 02/25/21 Rx tablet cefdinir 300 mg capsule 300 mg PO Q12H 10 Days #20 cap 02/17/21 02/25/21 Rx calcium carbonate 600 mg-vitamin 1 tablet PO DAILY #90 tablet 02/25/21 Rx D3 20 mcg (800 unit) tablet ropinirole 1 mg tablet 1 mg PO QHS #30 tablet 02/25/21 Rx Current Medications: Active Medications Sodium Chloride (Normal Saline Iv) 500 mls @ 100 mls/hr IV CONT .Q5H EARLE Sedation/Anesthesia: No previous sedation/anesthesia problems (including family history). [facility] Past Medical History Medical History Acute sinus infection Adenomatous colon polyp Bilateral cataracts BMI 34.0-34.9,adult BMI 35.0-35.9,adult CAD in [place] artery Chronic diarrhea Chronic narcotic use Depression Essential (primary) hypertension Exocrine pancreatic insufficiency GERD (gastroesophageal reflux disease) Heart attack History of ectopic Low back pain Low vitamin D level Mixed hyperlipidemia Neuropathy GRANT (obstructive sleep apnea) Osteoporosis Pre-diabetes Restless leg syndrome Tobacco abuse Surgical History Surgical History H/O heart artery stent H/O spinal fusion History of surgical removal of ganglion cyst S/P bladder repair S/P S/P laparoscopic cholecystectomy S/P partial hysterectomy Family History Family History Mother Cerebrovascular accident Family history of lung cancer Grandparent No problems noted. Father Family history of cardiovascular disease Sibling Cerebral palsy Other Carcinoma of colon Hypertension Social History Social History Smoking packs per day: 1 Smoking cigarettes per day: 20.0 Years smoked: 40 Smoking pack-years: 40.00 Smoking status: Current every day smoker Tobacco type: cigarettes Second hand tobacco smoke exposure: Yes Alcohol intake: never Drinks per week: 1 Alcohol use details: occasional wine Substance use: never Substance use type: does not use Other substance usage details: norco/acetaminophen two 5/325mg every 4-6 hours prn Last use: daily Living arrangements: with family Additional
--- NOTE | 2021-02-26 09:30 | P.PCNCC_ITS ---
Cardiac Cath Procedure Note Date of procedure:: 02/26/21 Performing physician:: Chris Daley MD Indication:: Recent episode of chest pain with modest troponin elevation occurring in the setting of epistaxis and significant anemia Brief clinical history:: this is a 60-year-old patient with coronary disease history of remote stenting of the diagonal branch of the LAD. She has been doing well clinically. She was recently admitted to the hospital with severe epistaxis and in the setting of significant anemia then had some chest pain and a very modest troponin rise. With improvement in her hemoglobin she has had no further chest pain. Because of this a follow-up angiogram was recommended. echocardiogram during that hospitalization demonstrated hyperdynamic LV function Procedure Procedure performed:: Coronary angiography Sedation/Medication given:: fentanyl 50 mg Versed 2 mg case start time 9:03 a.m. case end time 9:25 a.m. sedation provided by Marlene Saleem RN, trained observer Access site:: left femoral artery Estimated blood loss:: 20 cc Procedure note:: patient was brought to the cardiac catheterization lab where the femoral triangles were prepared and draped in the usual fashion. Because of known significant right iliac disease and poor pulses the right I anesthetized the left femoral triangle with 1% lidocaine. Using the modified Seldinger technique the left femoral artery was punctured and a 5 Moroccan vascular sheath was placed. After this coronary angiography was performed. I used a 5 [place]oc[place] JL 3.5 catheter to inject the left coronary artery. The JL4 would not satisfactorily engage the left main. Following this a standard 5 [place]oc[place] JR4 catheter was used to inject the right coronary artery. The cineangiograms were then reviewed and the case was terminated. Angiography was done of the left femoral artery through the sheath after which a 6 [place]occan Angio-Seal device was deployed with a good hemostatic result. 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 Findings:: Central aortic pressure was 138 over 55 left main coronary artery is short medium in caliber nicely patent the left anterior descending is a medium caliber artery extending down to around the apex. The LAD is smooth and free of atherosclerotic stenosis. The there is visible stent material in the diagonal branch of the LAD which remains nicely patent with no loss of lumen. This diagonal is relatively small in size. The circumflex is a medium caliber artery giving rise to the marginal branches the circumflex system is angiographically free of disease. The right coronary artery is moderate to large in caliber and dominant to the posterior circulation the right coronary artery is smooth and free of disease. Conclusion:: 1. Coronary artery disease with remaining patency of the diagonal branch of the LAD which was stented many years ago 2. no angiographically significant coronary stenosis is identified today. 3. Did not inject the left ventriculogram since recent echocardiography demonstrates hyperdynamic LV function 4. successful Angio-Seal to the left femoral artery Chris Daley MD [facility]
--- NOTE | 2021-02-26 12:55 | SUR.PHASEII ---
iv d/c tip intact. d/c instructions given to patient, written instructions given for patient to take home. all questions and concerns addressed. patient instructed to d/c plavix. she verbalizes understanding on all d/c instructions. patient transported via [facility] to personal vehicle and outside. L groin site at time of d/c is soft nontender, no hematoma present. dressing d/c/i.
== END 2021-02-26 12:57 | disposition home or self-care (01) ==
PROVIDERS: PCP Family Medicine; Visit Provider Specialist
PROC: (CPT 93454; principal; 2021-02-26 08:30)
DX: I25.10 Atherosclerotic heart disease of native coronary artery without angina pectoris (principal); R07.9 Chest pain, unspecified; D64.9 Anemia, unspecified; I10 Essential (primary) hypertension; K86.81 Exocrine pancreatic insufficiency; F32.9 Major depressive disorder, single episode, unspecified; K21.9 Gastro-esophageal reflux disease without esophagitis; I25.2 Old myocardial infarction; E78.2 Mixed hyperlipidemia; E55.9 Vitamin D deficiency, unspecified; G62.9 Polyneuropathy, unspecified; M81.0 Age-related osteoporosis without current pathological fracture; R73.03 Prediabetes; G25.81 Restless legs syndrome; F17.210 Nicotine dependence, cigarettes, uncomplicated; Z95.5 Presence of coronary angioplasty implant and graft; Z98.1 Arthrodesis status; Z79.82 Long term (current) use of aspirin; Z79.02 Long term (current) use of antithrombotics/antiplatelets; Z79.891 Long term (current) use of opiate analgesic
CPT/HCPCS: 36415; 80048; 85025; 93454; C1760; C1887; C1894; G0269; J1644; J2250; J3010; J7040

== ENCOUNTER 2021-05-27 12:10 | Outpatient (CLI) | payer MEDICARE, MEDICAID, SELFPAY ==
--- NOTE | ~2021-05-27 | US_ITS ---
EXAMINATION: US venous doppler LE EXAM DATE: 05/27/2021 12:41 INDICATION: R60.0 - Localized edema TECHNIQUE: Multiple grayscale, color flow and Doppler images of the lower extremity deep venous syste ms bilaterally were obtained and reviewed. There is no prior study for comparison. FINDINGS: Right side: The right common femoral, femoral and profunda veins demonstrate normal color flow, respi ratory variation, augmentation and compressibility. Compressibility, color flow confirmed within the right popliteal, posterior tibial, peroneal, and greater saphenous veins. Left side: The left common femoral, femoral and profunda veins demonstrate normal color flow, respira tory variation, augmentation and compressibility. Compressibility, color flow confirmed within the l eft popliteal, posterior tibial, peroneal, and greater saphenous veins. IMPRESSION: No lower extremity deep venous thrombosis bilaterally. Reviewed, dictated and finalized at location B.
== END 2021-05-27 12:11 | disposition home or self-care (01) ==
LOC: ANHIMG 12:15
PROVIDERS: PCP Family Medicine; Visit Provider Family Medicine
DX: M79.661 Pain in right lower leg (principal); R60.0 Localized edema
CPT/HCPCS: 93970

== ENCOUNTER → 2021-06-10 01:41 | Outpatient (CLI) | payer MEDICARE, MEDICAID, SELFPAY ==
[2021-06-10 11:26] LABS: SARS-CoV-2 RNA PCR Negative
== END ==
PROVIDERS: PCP Family Medicine; Visit Provider Internal Medicine Cardiovascular Disease
DX: Z01.812 Encounter for preprocedural laboratory examination (principal); Z20.822 Contact with and (suspected) exposure to COVID-19
CPT/HCPCS: C9803; U0003; U0005

== ENCOUNTER → 2021-07-01 00:22 | Outpatient (CLI) | payer MEDICARE, MEDICAID, SELFPAY ==
[2021-07-01 13:13] LABS: SARS-CoV-2 RNA PCR Negative
== END ==
PROVIDERS: PCP Family Medicine; Visit Provider Internal Medicine Cardiovascular Disease
DX: Z01.812 Encounter for preprocedural laboratory examination (principal); Z20.822 Contact with and (suspected) exposure to COVID-19
CPT/HCPCS: C9803; U0003; U0005

== ENCOUNTER 2021-07-07 14:23 | Outpatient (CLI) | payer MEDICARE, MEDICAID, SELFPAY ==
--- NOTE | ~2021-07-07 | MM_ITS ---
EXAMINATION: MM screening quita BI w bertha HISTORY: Screening TECHNIQUE: Craniocaudal and mediolateral oblique 3-D tomosynthesis images were obtained and synthetic 2-D images were generated. CAD analysis was submitted and interpreted. COMPARISON: Comparison to multiple prior studies sequentially, with oldest reviewed study dated 07/17. BREAST PARENCHYMAL COMPOSITION: There are scattered areas of fibroglandular density. FINDINGS: There is no evidence of suspicious mass, calcification, or architectural distortion to sugg est malignancy in either breast. There has been no suspicious interval change. IMPRESSION: 1. No mammographic evidence of malignancy. 2. Recommend routine screening mammography in one year. BI-RADS Category 1: Negative Reviewed, dictated and finalized at location A.
[2021-07-07 15:52] LABS: Anion Gap 5 mmol/L (8-16); Blood Urea Nitrogen 18 mg/dL (7-17); Calcium 8.5 mg/dL (8.4-10.2); Carbon Dioxide 30 mmol/L (22-30); Chloride 101 mmol/L (98-107); Estimated Glomerular Filt Rate > 60; Glucose 104 mg/dL (65-110); Sodium 136 mmol/L (137-145)
== END 2021-07-07 14:24 | disposition home or self-care (01) ==
PROVIDERS: PCP Family Medicine; Visit Provider Internal Medicine Cardiovascular Disease
DX: Z12.31 Encounter for screening mammogram for malignant neoplasm of breast (principal); I10 Essential (primary) hypertension
CPT/HCPCS: 36415; 77063; 77067; 80048

== ENCOUNTER 2021-08-20 13:43 | Outpatient (CLI) | payer MEDICARE, MEDICAID, SELFPAY ==
[2021-08-20 14:26] LABS: Alanine Aminotransferase 13 U/L (6-35); Albumin Level 4.1 g/dL (3.5-5.1); Alkaline Phosphatase 84 U/L (38-126); Anion Gap 6 mmol/L (8-16); Aspartate Amino Transferase 19 U/L (14-36); Bilirubin,Total 0.2 mg/dL (0.2-1.3); Blood Urea Nitrogen 22 mg/dL (7-17); Carbon Dioxide 28 mmol/L (22-30); Chloride 106 mmol/L (98-107); Estimated Glomerular Filt Rate > 60; Glucose 150 mg/dL (65-110); Potassium 4.3 mmol/L (3.4-5.0); Sodium 140 mmol/L (137-145)
== END 2021-08-20 13:44 | disposition home or self-care (01) ==
LOC: ANHLAB 13:46
PROVIDERS: PCP Family Medicine; Visit Provider Internal Medicine Cardiovascular Disease
DX: I25.10 Atherosclerotic heart disease of native coronary artery without angina pectoris (principal)
CPT/HCPCS: 36415; 80053

== ENCOUNTER 2021-10-29 10:56 | Outpatient (CLI) | payer MEDICARE, MEDICAID, SELFPAY ==
[2021-10-29 13:36] LABS: Hematocrit 40.6 % (37.0-47.0); Hemoglobin 11.3 g/dL (12.0-15.0); Immature Platelet Fraction Pct 15.6 % (0.9-11.2); Mean Corpuscular HGB Conc 27.8 g/dl (32-36); Mean Corpuscular Hemoglobin 21.7 pg (26-34); Mean Corpuscular Volume 77.9 fl (80-100); Platelet Count Result 173 k/mm3 (150-375); Red Blood Count 5.21 M/mm3 (4.2-5.4); Red Cell Distribution Width 17.6 % (11.5-14.5); White Blood Count 12.5 K/mm3 (4.5-10.0)
[2021-10-29 13:39] LABS: Alanine Aminotransferase 12 U/L (6-35); Albumin Level 4.3 g/dL (3.5-5.1); Alkaline Phosphatase 88 U/L (38-126); Anion Gap 9 mmol/L (8-16); Aspartate Amino Transferase 20 U/L (14-36); Bilirubin,Total 0.4 mg/dL (0.2-1.3); Blood Urea Nitrogen 15 mg/dL (7-17); Calcium 9.6 mg/dL (8.4-10.2); Carbon Dioxide 30 mmol/L (22-30); Chloride 99 mmol/L (98-107); Cholesterol 142 mg/dL (0-200); Estimated Glomerular Filt Rate > 60; Glucose 112 mg/dL (65-110); HDL Direct 50 mg/dL; Potassium 4.3 mmol/L (3.4-5.0); Sodium 138 mmol/L (137-145); Triglycerides 176 mg/dL (<150)
[2021-10-29 13:49] LABS: LDL Cholesterol Direct 59 mg/dL
[2021-10-29 14:28] LABS: Hemoglobin A1C 6.6 % (<5.7)
[2021-10-29 14:32] LABS: Free T4 Free Thyroxine 0.96 ng/mL (0.78-2.19); Vitamin D 25 Hydroxy 35.1 ng/mL
== END 2021-10-29 10:57 | disposition home or self-care (01) ==
PROVIDERS: PCP Family Medicine; Visit Provider Physician Assistant Medical
DX: G57.93 Unspecified mononeuropathy of bilateral lower limbs (principal); Z13.220 Encounter for screening for lipoid disorders; E78.2 Mixed hyperlipidemia; R79.89 Other specified abnormal findings of blood chemistry; E55.9 Vitamin D deficiency, unspecified; R73.09 Other abnormal glucose; E04.9 Nontoxic goiter, unspecified; I10 Essential (primary) hypertension
CPT/HCPCS: 36415; 80048; 80061; 80076; 82306; 82607; 83036; 84439; 84443; 85027; 85055

== ENCOUNTER 2022-01-28 12:53 | Outpatient (CLI) | payer MEDICARE, MEDICAID, SELFPAY ==
--- NOTE | 2022-01-29 16:40 | P.PCNPFT_ITS ---
PFT Procedure Performed PFT Procedure Performed Spirometry with Pre/Post Bronchodilator Plethysmography (Lung Vol) Diffusing Cap (DLCO) Flow Vol Loop PFT Interpretation Lung volumes were measured with the body plethysmography method. The diminished [id number] lung volumes are indicative of restrictive r espiratory disease. Spirometry showed diminished expiratory flow rates and a borderline normal FEV1 to FVC ratio of 68%. Following administration of a bronchodilator there was no significant increase in expiratory flow rates. Lung diffusion capacity is moderately reduced at 57% predicted. The flow volume loop is unremarkable. Impression: Mild restrictive respiratory disease. Moderately reduced lung diffusion capacity.
== END 2022-01-28 12:54 | disposition home or self-care (01) ==
LOC: ANHPFT 12:54
PROVIDERS: PCP Family Medicine; Visit Provider Family Medicine
DX: R06.02 Shortness of breath (principal); R94.2 Abnormal results of pulmonary function studies; J98.8 Other specified respiratory disorders
CPT/HCPCS: 94060; 94726; 94729

== ENCOUNTER 2022-02-02 14:02 | Outpatient (CLI) | payer MEDICARE, MEDICAID, SELFPAY ==
--- NOTE | ~2022-02-02 | US_ITS ---
US art doppler w press LE BI INDICATION: Urinary artery disease. TECHNIQUE: Segmental pressures and plethysmographic and Doppler waveforms of the brachial and lower e xtremity arteries were obtained. COMPARISON: Comparison to 02/13/2021. FINDINGS: Right and left brachial artery pressures of 145 mm Hg. Left brachial artery pressure not obtained due to stent. The right ankle-brachial index (BEATRIZ) is 0.96 (normal >= 0.9-1.0). The right great toe-brachial index (TBI) is 0.72 (normal >= 0.60). The left BEATRIZ is 1.04. The left TBI is 1.01. IMPRESSION: 1. Normal bilateral ankle and toe brachial indices. Reviewed, dictated and finalized at location A. R BALANCER
== END 2022-02-02 14:03 | disposition home or self-care (01) ==
PROVIDERS: PCP Family Medicine; Visit Provider Internal Medicine Cardiovascular Disease
DX: I25.10 Atherosclerotic heart disease of native coronary artery without angina pectoris (principal); I77.1 Stricture of artery
CPT/HCPCS: 93923

== ENCOUNTER 2022-04-07 20:34 | Outpatient (NON) | payer MEDICARE, MEDICAID, SELFPAY | END 2022-04-07 20:35 | disposition home or self-care (01) | LOC: ANHLAB 20:36 | PROVIDERS: PCP Family Medicine; Visit Provider Otolaryngology | DX: J32.0 Chronic maxillary sinusitis (principal) | CPT/HCPCS: 87070; 87075; 87077; 87186; 87205 ==

== ENCOUNTER → 2022-05-06 14:11 | Outpatient (CLI) | payer MEDICARE, MEDICAID, SELFPAY ==
--- NOTE | ~2022-05-06 | XR_ITS ---
XR lumbar spine 2-3V DATE: 05/06/2022 14:43 INDICATION: Lumbosacral radiculopathy TECHNIQUE: AP, lateral, coned lateral lumbosacral views COMPARISON: April 25, 2020 lumbar spine FINDINGS: There is diffuse osteopenia. The included lower thoracic and lumbar pedicles are intact. No fracture or bone destruction is detect ed. There are degenerative changes apophyseal joints particularly L4-5 and L5-S1 with associated grade 1 anterolisthesis at L4-5. Status post anterior and interbody spinal fusion at L5-S1. The sacroiliac joints are intact. There is extensive calcification of the abdominal aorta, without evidence of aneurysm. Right common i liac endovascular stent. Status post cholecystectomy. IMPRESSION: Status post anterior and interbody spinal fusion at L5-S1 Degenerative changes apophyseal joints of the lower lumbar and lumbosacral area with associated grade 1 anterolisthesis at L4-5 Osteopenia Reviewed, dictated and finalized at location B. ONAL SERVICE OFFICER
--- NOTE | ~2022-05-06 | XR_ITS ---
Cervical Spine: AP, lateral, open-mouth views Clinical History: Pain Findings: The normal lordotic curve is maintained. The vertebral bodies and posterior elements appea r intact. The intervertebral disc spaces are well maintained. Pre-vertebral soft tissues are unremar kable. Impression: No significant abnormality is seen. Reviewed, dictated and finalized at [place]. ETICIAN/SPA COORDINATOR Impression: No significant abnormality is seen.
== END ==
PROVIDERS: PCP Family Medicine; Visit Provider Nurse Practitioner Family
DX: M54.17 Radiculopathy, lumbosacral region (principal); M54.2 Cervicalgia; Z98.1 Arthrodesis status; M85.88 Other specified disorders of bone density and structure, other site
CPT/HCPCS: 72040; 72100

== ENCOUNTER 2022-07-13 11:48 | Outpatient (CLI) | payer MEDICARE, MEDICAID, SELFPAY ==
[2022-07-13 19:55] LABS: Hematocrit 41.3 % (37.0-47.0); Hemoglobin 11.1 g/dL (12.0-15.0); Mean Corpuscular HGB Conc 26.9 g/dl (32-36); Mean Corpuscular Hemoglobin 22.7 pg (26-34); Mean Corpuscular Volume 84.3 fl (80-100); Platelet Count Result 168 k/mm3 (150-375); Red Cell Distribution Width 23.3 % (11.5-14.5); White Blood Count 11.5 K/mm3 (4.5-10.0)
[2022-07-13 21:14] LABS: Iron 291 ug/dL (37-170)
[2022-07-13 22:05] LABS: Anion Gap 5 mmol/L (8-16); Blood Urea Nitrogen 14 mg/dL (7-17); Carbon Dioxide 32 mmol/L (22-30); Chloride 103 mmol/L (98-107); Estimated Glomerular Filt Rate > 60; Glucose 168 mg/dL (65-110); Potassium 3.9 mmol/L (3.4-5.0); Sodium 140 mmol/L (137-145)
[2022-07-13 22:12] LABS: Percent Iron Saturation 62 % (20-50)
== END 2022-07-13 11:49 | disposition home or self-care (01) ==
LOC: ANHGOSHLAB 11:49
PROVIDERS: PCP Family Medicine; Visit Provider Family Medicine
DX: D50.8 Other iron deficiency anemias (principal); I10 Essential (primary) hypertension
CPT/HCPCS: 36415; 80048; 83540; 83550; 85027

== ENCOUNTER → 2022-07-16 15:40 | Outpatient (CLI) | payer MEDICARE, MEDICAID, SELFPAY ==
--- NOTE | ~2022-07-16 | CT_ITS ---
EXAMINATION: CT sinus wo con DATE: 07/16/2022 16:11 INDICATION: Chronic ethmoid sinusitis TECHNIQUE: Computed tomography (CT) of the paranasal sinuses was performed without intravenous contra st. The dose-length product was 278.24 mGy-cm. Automated exposure control and iterative reconstructio n technique were employed. COMPARISON: None FINDINGS: There is postoperative change consistent with resection of the left ostiomeatal unit. There is moderate mucosal thickening left maxillary sinus. Mastoids are pneumatized. No significant nasal septal deviation. There is mild mucosal thickening of the left sphenoid sinus. Temporomandibular join ts are symmetric. There is minimal mucosal thickening of the right frontal sinus. IMPRESSION: 1. Mild paranasal sinus disease. Reviewed, dictated and finalized at location L.
== END ==
PROVIDERS: PCP Family Medicine; Visit Provider Otolaryngology
DX: J32.2 Chronic ethmoidal sinusitis (principal)
CPT/HCPCS: 70486

== ENCOUNTER → 2022-07-16 15:49 | Outpatient (CLI) | payer MEDICARE, MEDICAID, SELFPAY ==
--- NOTE | ~2022-07-16 | CT_ITS ---
EXAMINATION: CT lung screening DATE: 07/16/2022 16:12 INDICATION: Personal history of nicotine dependence TECHNIQUE: Computed tomography (CT) of the chest was performed without intravenous contrast. The dose -length product was 209.02 mGy-cm. Automated exposure control and iterative reconstruction technique were employed. COMPARISON: CT dated 07/13/2016 FINDINGS: Heart size normal. There is mild mediastinal lymph node enlargement, likely reactive. There are calcified granulomas of the right lung. No significant pleural or pericardial effusion. There is atherosclerosis of the aorta, great vessels and coronary arteries. There are cholecystectomy clips. There are multiple small pulmonary nodules primarily of the upper lobes measuring 3 mm or less. There is a 5 mm right lower lobe nodule, not seen on prior examination. There is a 3 mm left lower lobe no dule, image 79. Moderate thoracic spondylosis. There is accentuated thoracic kyphosis. IMPRESSION: 1. Lung-RADS category 3: Probably benign. Further evaluation is recommended with noncontrast low-dose chest CT in 6 months. Reviewed, dictated and finalized at location L. IMPRESSION: 1. Lung-RADS category 3: Probably benign. Further evaluation is recommended wit h noncontrast low-dose chest CT in 6 months.
== END ==
PROVIDERS: PCP Family Medicine; Visit Provider Nurse Practitioner Family
DX: Z12.2 Encounter for screening for malignant neoplasm of respiratory organs (principal); F17.210 Nicotine dependence, cigarettes, uncomplicated; R91.8 Other nonspecific abnormal finding of lung field
CPT/HCPCS: 71271

== ENCOUNTER 2022-11-11 13:14 | Outpatient (CLI) | payer MEDICARE, MEDICAID, SELFPAY ==
--- NOTE | ~2022-11-11 | MM_ITS ---
EXAMINATION: MM screening quita BI w bertha HISTORY: Screening mammogram TECHNIQUE: Craniocaudal and mediolateral oblique 3-D tomosynthesis images were obtained and synthetic 2-D images were generated. CAD analysis was submitted and interpreted. COMPARISON: 07/17/2021, 05/07/2020, 07/18/2015 bilateral screening mammogram examinations BREAST PARENCHYMAL COMPOSITION: There are scattered areas of fibroglandular density. FINDINGS: Right breast: There is no evidence of suspicious mass, calcification, or architectural distortion to suggest malignancy in the right breast. There has been no suspicious interval change. Left breast: A small approximately 3 mm mass is noted in the central mid to upper left breast; diagn ostic left mammogram and left targeted breast ultrasound are recommended. IMPRESSION: 1. 3 mm central mid to upper left breast mass 2. Diagnostic left mammogram and left targeted breast ultrasound are recommended. BI-RADS Category 0: Incomplete: Needs additional imaging evaluation. Reviewed, dictated and finalized at location A. IMPRESSION: 1. 3 mm central mid to upper left breast mass 2. Diagnostic left mammogram and left targeted breast ultrasound are recommende d. BI-RADS Category 0: Incomplete: Needs additional imaging evaluation.
--- NOTE | ~2022-11-11 | DEXA_ITS ---
Bone Density Report Name: JHONNY MCKEON Age: 62 Sex: Female Ethnicity: White Date of : 1960 Indication: postmenopausal osteoporosis; monitoring treatment; height loss; inflammatory bowel disease; hysterectomy; Referring Provider: BOSSMAN MORROW Study: Bone densitometry was performed. Exam Date: November 11, 2022 Accession number: [id number] Bone Density: Region BMD T-score Z-score Classification AP Spine(L1-L4) 0.878 -1.5 -0.1 Osteopenia Femoral Neck (Left) 0.611 -2.1 -0.9 Osteopenia Total Hip (Left) 0.768 -1.4 -0.5 Osteopenia Femoral Neck (Right) 0.586 -2.4 -1.1 Osteopenia Total Hip (Right) 0.726 -1.8 -0.8 Osteopenia Total Hip Mean 0.747 -1.6 -0.7 Osteopenia World Health Organization criteria for BMD impression classify patients as: Normal (T-score at or above -1.0), Osteopenia (T-score between -1.0 and -2.5), or Osteoporosis (T-score at or below -2.5). 10-year Fracture Risk: FRAX not reported because: Treated for osteoporosis Previous Exams: Region Exam Age BMD T-score BMD Change BMD Change Date g/cm2 vs Baseline vs Previous AP Spine (L1-L4) 11/11/2022 62 0.878 -1.5 0.078 (9.8%)* 0.078 (9.8%)* 05/07/2020 59 0.800 -2.2 Total Hip(Left) 11/11/2022 62 0.768 -1.4 0.040 (5.5%)* 0.040 (5.5%)* 05/07/2020 59 0.728 -1.8 Total Hip(Right) 11/11/2022 62 0.726 -1.8 0.097 (15.5%)* 0.097 (15.5%)* 05/07/2020 59 0.629 -2.6 *Denotes significance at 95% confidence level, LSC for AP Spine = 0.022 g/cm2, LSC for Total Hip = 0.027 g/cm2 Clinical Information Provided by Patient: Smokes Is being treated for osteoporosis Has used the following medications: Prolia (i.e. denosumab), Vitamin D, Calcium Has the following medical conditions: Inflammatory bowel diseases, Hysterectomy Patient maximum height was 65 Menopause Age: 48 No regular weight bearing exercise Drinks caffeinated beverages Onset of menses at age 14 Number of children 1 Impression: The patient has low bone mass, based on the Right Femoral Neck T-score. The patient has risk factors, including: smoking. No significant bone loss was observed. Discussion: PATIENT UNDER TREATMENT WITH NO SIGNIFICANT BMD LOSS SINCE LAST EXAM. In an untreated patient, BMD typically declines with age. A lack of decline or gain is usually a sign that treatment is efficacious and fracture risk is reduced. It is important to ask patients whether they are taking their medication
== END 2022-11-11 13:15 | disposition home or self-care (01) ==
LOC: ANHIMG 13:16
PROVIDERS: PCP Family Medicine; Visit Provider Family Medicine
DX: Z12.31 Encounter for screening mammogram for malignant neoplasm of breast (principal); M81.0 Age-related osteoporosis without current pathological fracture; N63.20 Unspecified lump in the left breast, unspecified quadrant; M85.89 Other specified disorders of bone density and structure, multiple sites
CPT/HCPCS: 36415; 77063; 77067; 77080; 83540; 83550; 85027

== ENCOUNTER 2022-11-11 14:32 | Outpatient (CLI) | payer MEDICARE, MEDICAID, SELFPAY ==
[2022-11-11 18:48] LABS: Hemoglobin 11.4 g/dL (12.0-15.0); Mean Corpuscular HGB Conc 27.8 g/dl (32-36); Mean Corpuscular Hemoglobin 22.8 pg (26-34); Mean Platelet Volume 12.9 fl (7.4-10.4); Platelet Count Result 159 k/mm3 (150-375); Red Cell Distribution Width 17.6 % (11.5-14.5); White Blood Count 12.6 K/mm3 (4.5-10.0)
[2022-11-11 19:19] LABS: Iron 47 ug/dL (37-170)
[2022-11-11 19:28] LABS: Percent Iron Saturation 9 % (20-50)
== END 2022-11-11 14:33 | disposition home or self-care (01) ==
LOC: ANHGOSHLAB 14:35
PROVIDERS: PCP Family Medicine; Visit Provider Family Medicine
DX: D50.8 Other iron deficiency anemias (principal)
CPT/HCPCS: 36415; 83540; 83550; 85027

== ENCOUNTER 2022-11-18 09:45 | Outpatient (CLI) | payer MEDICARE, MEDICAID, SELFPAY ==
--- NOTE | 2022-11-18 11:30 | NEURO_ITS ---
Impression: # Complains of lower extremity pain. History of multiple back surgeries. # Left peroneal decreased amplitude. # Right posterior tibial nerve poor response. # Neurogenic changes in right tibial nerve responses including gastroc. # Clinical correlation recommended. Nerve Conduction Studies Anti Sensory Summary Table Stim Site NR Peak (ms) P-T Amp (?V) Site1 Site2 Delta-P (ms) Dist (cm) Gomez (m/s) Left Sup Fibular Anti Sensory (Ant Lat Mall) 14 cm 4.0 4.4 14 cm Ant Lat Mall 4.0 16.0 40 Right Sup Fibular Anti Sensory (Ant Lat Mall) 14 cm 3.4 19.4 14 cm Ant Lat Mall 3.4 16.0 47 Left Sural Anti Sensory (Lat Mall) Calf 3.8 10.3 Calf Lat Mall 3.8 16.0 42 Right Sural Anti Sensory (Lat Mall) Calf 3.9 13.8 Calf Lat Mall 3.9 16.0 41 Motor Summary Table Stim Site NR Onset (ms) O-P Amp (mV) Site1 Site2 Delta-0 (ms) Dist (cm) Gomez (m/s) Left Peroneal Motor (Vastus Med) Ankle 4.1 2.9 Popit Ankle 9.7 43.0 44 Popit 13.8 0.6 Right Peroneal Motor (Vastus Med) Ankle 4.0 3.9 Popit Ankle 8.6 38.0 44 Popit 12.6 3.8 Left Tibial Motor (Abd Hayden Brev) Ankle 4.7 1.6 Knee Ankle 10.0 43.0 43 Knee 14.7 0.9 Right Tibial Motor (Abd Hayden Brev) NO RESPONSE Ankle NR Knee Ankle 39.0 Knee 13.8 0.0 F Wave Studies NR F-Lat (ms) L-R F-Lat (ms) Left Peroneal (Mrkrs) (EDB) 51.41 0.86 Right Peroneal (Mrkrs) (EDB) 52.26 0.86 Left Tibial (Mrkrs) (Abd Hallucis) 52.51 Right Tibial (Mrkrs) (Abd Hallucis) DISPERSED RESPONSE NR EMG Side Muscle Nerve Root Ins Act Fibs Amp Dur Recrt Comment Right AntTibialis Dp Br Fibular L4-5 Nml Nml Decr >12ms Reduced Right Gastroc Tibial S1-2 Nml Nml Decr >12ms Reduced Right Fibularis Long Sup Br Fibular L5-S1 Nml Nml Nml Nml Nml Right Flex Dig Long Tibial L5-S2 Nml Nml Nml Nml Nml Right Ext Dig Brev Dp Br Fibular L5, S1 Nml Nml Nml Nml Nml Left AntTibialis Dp Br Fibular L4-5 Nml Nml Nml Nml Nml Left Gastroc Tibial S1-2 Nml Nml Nml Nml Nml Left Fibularis Long Sup Br Fibular L5-S1 Nml Nml Nml Nml Nml Left Flex Dig Long Tibial L5-S2 Nml Nml Nml Nml Nml Left Ext Dig Brev Dp Br Fibular L5, S1 Nml Nml Nml Nml Nml Right QuadratusFem QuadFemoris L4-5, S1 Nml Nml Nml Nml Nml Left QuadratusFem QuadFemoris L4-5, S1 Nml Nml Nml Nml Nml MTDD
== END 2022-11-18 09:46 | disposition home or self-care (01) ==
PROVIDERS: PCP Family Medicine; Visit Provider Family Medicine
DX: M54.10 Radiculopathy, site unspecified (principal); R94.131 Abnormal electromyogram [EMG]
CPT/HCPCS: 95886; 95910

== ENCOUNTER 2022-11-26 14:34 | Outpatient (CLI) | payer MEDICARE, MEDICAID, SELFPAY ==
--- NOTE | ~2022-11-26 | MR_ITS ---
EXAMINATION: MR brain/brain stem wo con DATE: 11/26/2022 15:38 INDICATION: Other amnesia. TECHNIQUE: Magnetic resonance imaging (MRI) of the brain and brainstem was performed without intraven ous contrast. COMPARISON: None. FINDINGS: There are scattered areas of nonspecific increased T2-weighted signal intensity in the cere bral white matter, which is within normal limits for the patient's age. There is no intracranial hemo rrhage, acute infarction, or abnormal intracranial mass lesion. The ventricles are normal in size. Th ere is mild mucosal thickening in left maxillary sinus. There is volume loss of left maxillary sinus. There are likely changes of ocular lens replacement surgeries. The mastoid air cells are normal. IMPRESSION: 1. Normal aging brain. Reviewed, dictated and finalized at location E. IMPRESSION: 1. Normal aging brain.
== END 2022-11-26 14:35 | disposition home or self-care (01) ==
PROVIDERS: PCP Family Medicine; Visit Provider Family Medicine
DX: R41.3 Other amnesia (principal); R51.9 Headache, unspecified
CPT/HCPCS: 70551

== ENCOUNTER 2022-12-08 12:25 | Outpatient (CLI) | payer MEDICARE, MEDICAID, SELFPAY ==
--- NOTE | ~2022-12-08 | MMUS_ITS ---
EXAMINATION: MM diagnostic quita LT w bertha, US breast LT complete HISTORY: 3 mm central mid to upper left breast mass reported on 11/11/2022 screening mammogram TECHNIQUE: Additional 3-D tomosynthesis images of the left breast were performed and synthetic 2-D im ages were generated. CAD analysis was submitted and interpreted. High resolution complete left breast ultrasound examination including all 4 quadrants and subareolar area was performed. COMPARISON: None FINDINGS: MAMMOGRAPHIC FINDINGS: Scattered small nodular circumscribed densities measuring up to approximately 4.5 mm maximal dimensio n. No suspicious mass, architectural distortion, malignant calcificationor skin thickening or retract ion of the left breast is detected. ULTRASOUND: 2:00 6 cm from nipple: Parallel circumscribed sonolucency measuring 2.5 x 1.9 x 2.7 mm, compatible wi th small cyst. No suspicious mass or shadowing is detected. IMPRESSION: 1. Benign findings; no mammographic or sonographic evidence of malignancy 2. Routine annual mammographic screening is recommended BI-RADS Category 2: Benign finding(s). Reviewed, dictated and finalized at location A. IMPRESSION: 1. Benign findings; no mammographic or sonographic evidence of malignancy 2. Routine annual mammographic screening is recommended BI-RADS Category 2: Benign finding(s).
== END 2022-12-08 12:26 | disposition home or self-care (01) ==
PROVIDERS: PCP Family Medicine; Visit Provider Family Medicine
DX: N63.20 Unspecified lump in the left breast, unspecified quadrant (principal); R92.8 Other abnormal and inconclusive findings on diagnostic imaging of breast
CPT/HCPCS: 76641; 77061; 77065; G0279

== ENCOUNTER 2023-01-03 16:45 | Emergency (ER) | payer OTHER, MEDICARE, MEDICAID, SELFPAY ==
[2023-01-03 17:07] VITALS: BP 170/93; PULSE 62; RESP 20; TEMP 36.3; O2SAT 96
[2023-01-03 17:09] VITALS: BP 170/93; PULSE 62; RESP 20; TEMP 36.3; O2SAT 96
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
== END 2023-01-03 17:47 | disposition short-term general hospital (02) ==
PROVIDERS: Emergency Provider Nurse Practitioner Family; PCP Family Medicine
DX: R07.81 Pleurodynia (principal); S09.90XA Unspecified injury of head, initial encounter; V23.59XA Other motorcycle passenger injured in collision with car, pick-up truck or van in traffic accident, initial encounter; M79.601 Pain in right arm; F17.210 Nicotine dependence, cigarettes, uncomplicated; I25.10 Atherosclerotic heart disease of native coronary artery without angina pectoris; J44.9 Chronic obstructive pulmonary disease, unspecified; K21.9 Gastro-esophageal reflux disease without esophagitis; I25.2 Old myocardial infarction; E78.2 Mixed hyperlipidemia; M81.0 Age-related osteoporosis without current pathological fracture; R73.03 Prediabetes; G25.81 Restless legs syndrome; F32.A Depression, unspecified; Z79.01 Long term (current) use of anticoagulants
CPT/HCPCS: 99212; G0463; L0140

== ENCOUNTER 2023-01-03 18:11 | Emergency (ER) | payer OTHER, MEDICARE, MEDICAID, SELFPAY ==
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
--- NOTE | ~2023-01-03 | XR_ITS ---
EXAMINATION: XR shoulder RT min 2V DATE: 01/03/2023 21:40 INDICATION: Posttraumatic right shoulder pain TECHNIQUE: AP internally and externally rotated and Grashey views of the right shoulder were obtained . COMPARISON: None FINDINGS: Normal alignment. No fracture.Mild glenohumeral osteoarthritis with cephalad predominant nonuniform joint space narrowing and small marginal osteophyte along the posterior and inferior glenoid. There i s also mild acromioclavicular osteoarthritis. Small subacromial spur. Soft tissues are unremarkable. IMPRESSION: Mild right glenohumeral and acromioclavicular osteoarthritis. Reviewed, dictated and finalized at location A. PHIBIOUS OPERATIONS OFFICER
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
[2023-01-03 18:15] VITALS: BP 198/63; PULSE 90; RESP 20; TEMP 36.1; O2SAT 96
[2023-01-03 18:20] VITALS: BP 198/63
--- NOTE | 2023-01-03 18:30 | PC.NURSE ---
patient refuses c-collar
[2023-01-03 20:41] VITALS: BP 170/69; PULSE 60; RESP 21; O2SAT 95
--- NOTE | 2023-01-03 21:17 | ECG_ITS ---
Measurements Intervals [place] Rate: 60 P: 57 CO: 168 QRS: 42 QRSD: 88 T: 83 QT: 426 QTc: 426 Interpretive Statements SINUS RHYTHM NONSPECIFIC ST & T-WAVE ABNORMALITY- DIFFUSE LEADS BASELINE ARTIFACT- I, II, III, AVR, AVL, AVF BORDERLINE ECG COMPARED TO ECG 02/13/2021 10:36:24 SINUS RHYTHM NOW PRESENT Electronically Signed On 01-04-2023 6:45:18 [employer]ER by Shon Daniels D.O.
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
[2023-01-03 21:38] LABS: Basophils Absolute Auto 0.1 K/mm3 (0.0-0.1); Basophils Percent Auto 0.4 % (0.2-1.2); Eosinophils Absolute Auto 0.1 K/mm3 (0-0.3); Eosinophils Percent Auto 0.7 % (0-4.4); Hematocrit 43.8 % (37.0-47.0); Immature Granulocyte Absolute 0.05 K/mm3 (0.00-0.031); Immature Granulocyte Percent A 0.3 % (0-0.5); Lymphocytes Absolute Auto 5.04 K/mm3 (0.9-3.2); Lymphocytes Percent Auto 31.8 % (18.3-44.2); Mean Corpuscular HGB Conc 29.7 g/dl (32-36); Mean Corpuscular Hemoglobin 25.4 pg (26-34); Mean Corpuscular Volume 85.5 fl (80-100); Mean Platelet Volume 11.7 fl (7.4-10.4); Monocytes Absolute Auto 0.8 K/mm3 (0.1-0.6); Monocytes Percent Auto 5.1 % (2.6-8.5); Neutrophils Absolute Auto 9.8 K/mm3 (1.3-6.7); Neutrophils Percent Auto 61.7 % (45.5-73.1); Platelet Count Result 142 k/mm3 (150-375); Red Blood Count 5.12 M/mm3 (4.2-5.4); Red Cell Distribution Width 18.4 % (11.5-14.5); White Blood Count 15.8 K/mm3 (4.5-10.0)
[2023-01-03 21:49] LABS: Prothrombin Time 13.6 Seconds (11.1-14.7)
[2023-01-03 21:50] LABS: Alanine Aminotransferase 18 U/L (6-35); Albumin Level 4.7 g/dL (3.5-5.1); Alkaline Phosphatase 82 U/L (38-126); Anion Gap 8 mmol/L (8-16); Aspartate Amino Transferase 21 U/L (14-36); Bilirubin,Total 0.7 mg/dL (0.2-1.3); Blood Urea Nitrogen 10 mg/dL (7-17); Calcium 9.9 mg/dL (8.4-10.2); Carbon Dioxide 31 mmol/L (22-30); Chloride 99 mmol/L (98-107); Estimated CRCL calculation 140 ml/min; Estimated Glomerular Filt Rate > 60; Glucose 101 mg/dL (65-110); Partial Thromboplastin Time 31.2 SECONDS (22.3-36.8); Potassium 3.4 mmol/L (3.4-5.0); Sodium 138 mmol/L (137-145)
[2023-01-03 21:52] LABS: Anisocytosis 1+ (NORMAL); Hypochromasia 1+ (NORMAL); Ovalocytes 1+ (NORMAL); Platelet Estimate Adequate (Adequate); Schistocytes None Seen (NORMAL)
[2023-01-03 22:02] LABS: Troponin I < 0.012 ng/mL (0.000-0.034)
[2023-01-03 23:00] VITALS: BP 155/87; PULSE 85; RESP 19; O2SAT 96
[2023-01-04 00:55] VITALS: BP 159/89; PULSE 99; RESP 19; O2SAT 97
== END 2023-01-04 00:55 | disposition home or self-care (01) ==
PROVIDERS: Emergency Provider Physician Assistant; PCP Family Medicine
DX: S20.211A Contusion of right front wall of thorax, initial encounter (principal); J44.9 Chronic obstructive pulmonary disease, unspecified; I25.10 Atherosclerotic heart disease of native coronary artery without angina pectoris; E78.2 Mixed hyperlipidemia; I10 Essential (primary) hypertension; I25.2 Old myocardial infarction; F17.210 Nicotine dependence, cigarettes, uncomplicated; Z79.899 Other long term (current) drug therapy; Z79.01 Long term (current) use of anticoagulants; V23.99XA Unspecified rider of other motorcycle injured in collision with car, pick-up truck or van in traffic accident, initial encounter
CPT/HCPCS: 36415; 70450; 71260; 72125; 72129; 72132; 73030; 74177; 80053; 84484; 85025; 85610; 85730; 93005; 99284; Q9967

== ENCOUNTER 2023-01-06 15:52 | Outpatient (CLI) | payer MEDICARE, MEDICAID, SELFPAY ==
[2023-01-06 16:12] LABS: Basophils Absolute Auto 0.1 K/mm3 (0.0-0.1); Basophils Percent Auto 0.8 % (0.2-1.2); Eosinophils Absolute Auto 0.3 K/mm3 (0-0.3); Eosinophils Percent Auto 2.4 % (0-4.4); Hematocrit 43.3 % (37.0-47.0); Hemoglobin 12.7 g/dL (12.0-15.0); Immature Granulocyte Absolute 0.06 K/mm3 (0.00-0.031); Immature Granulocyte Percent A 0.5 % (0-0.5); Lymphocytes Absolute Auto 4.74 K/mm3 (0.9-3.2); Lymphocytes Percent Auto 36.3 % (18.3-44.2); Mean Corpuscular HGB Conc 29.3 g/dl (32-36); Mean Corpuscular Hemoglobin 25.7 pg (26-34); Mean Corpuscular Volume 87.7 fl (80-100); Mean Platelet Volume 11.3 fl (7.4-10.4); Monocytes Absolute Auto 0.6 K/mm3 (0.1-0.6); Monocytes Percent Auto 4.9 % (2.6-8.5); Neutrophils Absolute Auto 7.2 K/mm3 (1.3-6.7); Neutrophils Percent Auto 55.1 % (45.5-73.1); Platelet Count Result 152 k/mm3 (150-375); Red Blood Count 4.94 M/mm3 (4.2-5.4); Red Cell Distribution Width 17.9 % (11.5-14.5); White Blood Count 13.1 K/mm3 (4.5-10.0)
[2023-01-06 16:19] LABS: Hypochromasia 1+ (NORMAL); Platelet Estimate Adequate (Adequate); Schistocytes None Seen (NORMAL)
[2023-01-06 16:58] LABS: Alanine Aminotransferase 17 U/L (6-35); Albumin Level 4.1 g/dL (3.5-5.1); Alkaline Phosphatase 71 U/L (38-126); Anion Gap 2 mmol/L (8-16); Aspartate Amino Transferase 23 U/L (14-36); Bilirubin,Total 0.5 mg/dL (0.2-1.3); Blood Urea Nitrogen 18 mg/dL (7-17); CRP 2.3 mg/dL (<1.0); Carbon Dioxide 35 mmol/L (22-30); Chloride 100 mmol/L (98-107); Estimated Glomerular Filt Rate > 60; Glucose 138 mg/dL (65-110); Lactate Dehydrogenase 229 U/L (120-246); Potassium 3.4 mmol/L (3.4-5.0); Sodium 137 mmol/L (137-145)
[2023-01-06 17:14] LABS: Erythrocyte Sedimentation Rate 7 mm/hr (0-20)
[2023-01-06 19:02] LABS: Folic Acid 8.6 ng/mL (2.76->20)
[2023-01-06 19:22] LABS: Iron 59 ug/dL (37-170)
[2023-01-06 19:57] LABS: Percent Iron Saturation 14 % (20-50)
[2023-01-06 19:58] LABS: Ferritin 9.58 ng/mL (11.1-264)
[2023-01-09 14:49] LABS: Methylmalonic Acid 144 nmol/L (87-318)
[2023-01-12 10:28] LABS: Soluble Transferrin Receptor 2.21 mg/L (0.76-1.76)
== END 2023-01-06 15:53 | disposition home or self-care (01) ==
LOC: ANHLAB 15:56
PROVIDERS: PCP Family Medicine; Visit Provider Internal Medicine Hematology & Oncology
DX: D64.9 Anemia, unspecified (principal); D72.829 Elevated white blood cell count, unspecified
CPT/HCPCS: 36415; 80053; 82607; 82728; 82746; 83540; 83550; 83615; 83921; 84238; 85025; 85652; 86140

== ENCOUNTER 2023-03-04 14:35 | Outpatient (CLI) | payer MEDICARE, MEDICAID, SELFPAY ==
[2023-03-04 18:49] LABS: Basophils Absolute Auto 0.1 K/mm3 (0.0-0.1); Basophils Percent Auto 1.1 % (0.2-1.2); Eosinophils Absolute Auto 0.2 K/mm3 (0-0.3); Eosinophils Percent Auto 1.6 % (0-4.4); Hematocrit 48.3 % (37.0-47.0); Hemoglobin 14.4 g/dL (12.0-15.0); Immature Granulocyte Absolute 0.03 K/mm3 (0.00-0.031); Immature Granulocyte Percent A 0.2 % (0-0.5); Lymphocytes Absolute Auto 4.49 K/mm3 (0.9-3.2); Lymphocytes Percent Auto 37.4 % (18.3-44.2); Mean Corpuscular HGB Conc 29.8 g/dl (32-36); Mean Corpuscular Hemoglobin 26.6 pg (26-34); Mean Corpuscular Volume 89.1 fl (80-100); Mean Platelet Volume 12.3 fl (7.4-10.4); Monocytes Absolute Auto 0.7 K/mm3 (0.1-0.6); Monocytes Percent Auto 5.9 % (2.6-8.5); Neutrophils Absolute Auto 6.5 K/mm3 (1.3-6.7); Neutrophils Percent Auto 53.8 % (45.5-73.1); Platelet Count Result 168 k/mm3 (150-375); Red Blood Count 5.42 M/mm3 (4.2-5.4); Red Cell Distribution Width 14.5 % (11.5-14.5)
[2023-03-04 19:14] LABS: Hypochromasia 1+ (NORMAL); Platelet Estimate Adequate (Adequate); Schistocytes None Seen (NORMAL)
[2023-03-04 20:03] LABS: Iron 118 ug/dL (37-170)
[2023-03-04 20:13] LABS: Percent Iron Saturation 31 % (20-50)
== END 2023-03-04 14:36 | disposition home or self-care (01) ==
PROVIDERS: PCP Family Medicine
DX: D64.9 Anemia, unspecified (principal)
CPT/HCPCS: 36415; 82728; 83540; 83550; 85025; 85055

== ENCOUNTER 2023-03-31 14:39 | Outpatient (CLI) | payer MEDICARE, MEDICAID, SELFPAY ==
--- NOTE | ~2023-03-31 | CT_ITS ---
CT Scan of the Chest without Contrast: Clinical Indication: Lung cancer screening, tobacco use Technique: Contiguous sections were acquired throughout the chest without intravenous contrast. Dose reduction technique was used on this scan by utilizing automated exposure control and iterative recon struction technique. The dose-length product (DLP) was 173.31 mGy-cm. COMPARISON: 07/16/2022 Findings: There is no evidence of any significant mediastinal, hilar or axillary lymphadenopathy. Coronary jose ry calcifications are present. There is no evidence of pleural or pericardial effusion. Calcified right lower lobe granuloma present. There are several scattered peripheral tiny 1-2 mm pulm onary nodules in the upper lobes. Stable 5 mm right lower lobe pulmonary nodule. Stable 3 mm left low er lobe pulmonary nodule. Images through the upper abdomen reveal no abnormalities. Impression: Lung RADS 2: Benign appearance. 12 month follow-up screening CT advised. Reviewed, dictated and finalized at [facility]. 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 12 month follow-up screening CT advised.
== END 2023-03-31 14:40 | disposition home or self-care (01) ==
LOC: ANHIMG 14:40
PROVIDERS: PCP Family Medicine; Visit Provider Nurse Practitioner Family
DX: Z12.2 Encounter for screening for malignant neoplasm of respiratory organs (principal); Z87.891 Personal history of nicotine dependence
CPT/HCPCS: 71271

== ENCOUNTER 2023-04-02 14:30 | Outpatient (RCR) | payer MEDICARE, MEDICAID, SELFPAY ==
--- NOTE | 2023-03-04 16:59 | OPREHPOC ---
Outpatient Therapy Plan of Care This is a Multidisciplinary Plan of Care that may contain components documented by all disciplines (PT, OT, and ST.) PT Problem 1 PT Problem #1 Knowledge Deficit PT Goal 1 Goal Pt to be IND with issued HEP Target Visit 8 PT Problem 2 PT Problem #2 Pain PT Goal 1 Goal Pt to report pain no greater than 3/10 in the last week. Target Visit 8 PT Goal 2 Goal Pt to report 75% improvement in overall symptoms. Target Visit 8 PT Problem 3 PT Problem #3 Impaired Range of Motion PT Goal 1 Goal Pt to improve passive hip extension to 0 deg Target Visit 8 PT Problem 4 PT Problem #4 Impaired Functional Mobil PT Goal 1 Goal Pt to demonstrate functional lift and carry with 20lb Target Visit 8 PT Problem 5 PT Problem #5 Impaired Gait PT Goal 1 Goal Pt to ambulate with neutral spinal alignment Target Visit 8 PT Goal 2 Goal Pt to improve 2 min walk distance from 350ft to 400ft. Target Visit 8
--- NOTE | 2023-03-04 16:59 | PTOPEVAL1 ---
Assessment and note entered by Estrella Oconnor, PT, DPT Evaluation Information Assessment Status Evaluation Diagnosis neuropathy of BLEs Subjective Information Pt states she has neuropathy in both feet, she states her neurologist is concerned about her balance. She states her toes feel numb and tingling all the time. Pt reports bruising throughout the dorsum of her foot. She is being seen by multiple other providers to check out multiple other comorbidities. She states she takes multiple pain pills daily for pain management. She declines any recent falls. She does not work, she is on disability. Reported Pain Level Pain Score 4: Self Report Assessment PT Clinical Summary Carol presents to therapy today for her initial evaluation with a diagnosis of neuropathy, she reports chronic low back pain with neuropathy and multiple other comorbidities. Today she demonstrates decreased lumbar ROM in all directions limited by pain, decreased hip extension, decreased hip strength, gait deviations , and decreased functional mobility. Skilled therapy services are indicated to address the deficits noted above, to manage pain, and to improve overall functional mobility. Plan of Care Interventions Electrical Stimulation,Gait Training,Hot Pack/Cold Pack,Manual Therapy,Neuro Re-education,Patient/ Caregiver Educati,Therapeutic Activities, Therapeutic Exercise PT Services Indicated Yes Treatment Frequency and 1-2x/wk for 8 visits per pt request Duration These treatments will address the objective and functional deficits as defined above. The patient will be advanced safely and appropriately in order for the patient to progress towards his/her prior level of function. Additional exercises will be introduced and as well as a comprehensive home exercise program upon discharge, if needed, ?to ensure carryover of functional gains achieved in the clinic. This treatment plan has been reviewed and agreement upon by the patient.
--- NOTE | 2023-03-19 11:55 | PCPTNOTE ---
Patient called & cancelled scheduled appointment this date due to inclement weather.
--- NOTE | 2023-04-02 17:00 | PTOPPROG ---
Assessment and note entered by Estrella Oconnor, PT, DPT Evaluation Information Assessment Status Progress Diagnosis neuropathy of BLEs Subjective Information Pt states she is really hurting today, she states she did a lot of yard work the last 2 days and states she is suffering today because of it. She states overall she feels about the same since starting therapy. She reports poor compliance with her HEP. Pt reports a decrease in leg pain with an increase in back pain in the last month. Assessment PT Clinical Summary Carol presents to therapy today for her progress report following 4 visits of skilled therapy to treat her diagnosis of neuropathy, she reports chronic low back pain with neuropathy and multiple other comorbidities. Today she demonstrates mild improvements in her lumbar ROM without improvements in her pain reports. Her HEP was progressed this date and she elected to follow up after her neuro and pain management consult later this month. Plan of Care Interventions Electrical Stimulation,Gait Training,Hot Pack/Cold Pack,Manual Therapy,Neuro Re-education,Patient/ Caregiver Educati,Therapeutic Activities, Therapeutic Exercise PT Services Indicated Yes Treatment Frequency and follow up after neuro consult Duration These treatments will address the objective and functional deficits as defined above. The patient will be advanced safely and appropriately in order for the patient to progress towards his/her prior level of function. Additional exercises will be introduced and as well as a comprehensive home exercise program upon discharge, if needed, ?to ensure carryover of functional gains achieved in the clinic. This treatment plan has been reviewed and agreement upon by the patient.
--- NOTE | 2023-05-12 11:53 | PTOPDC ---
Assessment and note entered by Estrella Oconnor, PT, DPT Evaluation Information Assessment Status Discharge - Pt Not Present Diagnosis neuropathy of BLEs Subjective Information Pt requested to be placed on hold on 04/02/23. Called and LVM with pt on 05/03/23 to follow up and have not heard back from her at this time. Assessment PT Clinical Summary Pt completed 4 visits of skilled therapy from to 04/02/23. She will be discharged at this time d/t lack of attendance and communication with clinic. If she needs additional therapy at a later date, she will need a new order.
== END 2023-05-12 13:11 | disposition home or self-care (01) ==
LOC: ANHGOSHPT 14:30
PROVIDERS: PCP Family Medicine; Visit Provider Psychiatry & Neurology Neurology
DX: G62.9 Polyneuropathy, unspecified (principal)
CPT/HCPCS: 97014; 97110; 97161; 97530; G0283

== ENCOUNTER 2023-06-21 07:39 | Outpatient (CLI) | payer MEDICARE, MEDICAID, SELFPAY ==
[2023-06-21 08:50] LABS: Alanine Aminotransferase 16 U/L (6-35); Albumin Level 4.2 g/dL (3.5-5.1); Alkaline Phosphatase 79 U/L (38-126); Anion Gap 6 mmol/L (4-12); Aspartate Amino Transferase 20 U/L (14-36); Bilirubin,Total 0.4 mg/dL (0.2-1.3); Blood Urea Nitrogen 15 mg/dL (7-17); Calcium 8.9 mg/dL (8.4-10.2); Carbon Dioxide 31 mmol/L (22-30); Chloride 104 mmol/L (98-107); Cholesterol 120 mg/dL (0-200); Estimated Glomerular Filt Rate > 60; Glucose 128 mg/dL (65-110); HDL Direct 50 mg/dL; Potassium 4.1 mmol/L (3.4-5.0); Sodium 141 mmol/L (137-145); Triglycerides 128 mg/dL (<150)
[2023-06-21 09:01] LABS: LDL Cholesterol Direct 68 mg/dL
[2023-06-21 09:03] LABS: Iron 66 ug/dL (37-170)
[2023-06-21 09:10] LABS: Free T4 Free Thyroxine 1.09 ng/mL (0.78-2.19); Vitamin D 25 Hydroxy 29.9 ng/mL
[2023-06-21 09:23] LABS: Hematocrit 46.1 % (37.0-47.0); Hemoglobin 13.9 g/dL (12.0-15.0); Mean Corpuscular HGB Conc 30.2 g/dl (32-36); Mean Corpuscular Hemoglobin 27.5 pg (26-34); Mean Corpuscular Volume 91.3 fl (80-100); Mean Platelet Volume 12.3 fl (7.4-10.4); Platelet Count Result 137 k/mm3 (150-375); Red Blood Count 5.05 M/mm3 (4.2-5.4); White Blood Count 9.9 K/mm3 (4.5-10.0)
[2023-06-21 09:34] LABS: Percent Iron Saturation 15 % (20-50)
[2023-06-21 09:44] LABS: Hemoglobin A1C 6.3 % (<5.7)
== END 2023-06-21 07:40 | disposition home or self-care (01) ==
PROVIDERS: PCP Family Medicine; Visit Provider Family Medicine
DX: E55.9 Vitamin D deficiency, unspecified (principal); D50.8 Other iron deficiency anemias; E04.9 Nontoxic goiter, unspecified; R79.89 Other specified abnormal findings of blood chemistry; R73.09 Other abnormal glucose; E78.2 Mixed hyperlipidemia; I10 Essential (primary) hypertension; Z13.220 Encounter for screening for lipoid disorders
CPT/HCPCS: 36415; 80048; 80061; 80076; 82306; 82728; 83036; 83540; 83550; 84439; 84443; 85027

== ENCOUNTER 2023-09-24 12:55 | Outpatient (CLI) | payer MEDICARE, MEDICAID, SELFPAY ==
--- NOTE | ~2023-09-24 | CT_ITS ---
EXAMINATION: CT sinus wo con DATE: 09/24/2023 13:07 INDICATION: Chronic maxillary sinusitis TECHNIQUE: Computed tomography (CT) of the paranasal sinuses was performed without intravenous contra st. The dose-length product (DLP) was 273.81 mGy-cm. Iterative reconstruction was used. COMPARISON: 07/16/2022 FINDINGS: There is normal development and pneumatization of the paranasal sinuses. Mild mucosal thick ening in the right frontal and ethmoid sinuses. Moderate left maxillary mucosal thickening with aerat ed secretions. Status post left antral window procedure. The right ostiomeatal complex is patent. Vis ualized soft tissues are unremarkable. Minimal leftward bowing of the anterior septum. Small osseous spur off the posterior septum directed towards the right. Maxillary sclerosis. IMPRESSION: Chronic left maxillary sinusitis Reviewed, dictated and finalized at location K.
== END 2023-09-24 12:56 ==
LOC: MICIMG 12:55
PROVIDERS: PCP Family Medicine; Visit Provider Family Medicine
DX: J32.0 Chronic maxillary sinusitis (principal)
CPT/HCPCS: 70486

== ENCOUNTER 2023-11-24 12:15 | Outpatient (CLI) | payer MEDICARE, MEDICAID, SELFPAY ==
[2023-11-24 12:42] LABS: Basophils Absolute Auto 0.1 K/mm3 (0.0-0.1); Basophils Percent Auto 0.7 % (0.2-1.2); Eosinophils Absolute Auto 0.2 K/mm3 (0-0.3); Eosinophils Percent Auto 2.2 % (0-4.4); Hematocrit 44.9 % (37.0-47.0); Hemoglobin 13.8 g/dL (12.0-15.0); Immature Granulocyte Absolute 0.04 K/mm3 (0.00-0.031); Immature Granulocyte Percent A 0.4 % (0-0.5); Lymphocytes Absolute Auto 4.86 K/mm3 (0.9-3.2); Mean Corpuscular HGB Conc 30.7 g/dl (32-36); Mean Corpuscular Hemoglobin 27.6 pg (26-34); Mean Corpuscular Volume 89.8 fl (80-100); Mean Platelet Volume 12.3 fl (7.4-10.4); Monocytes Absolute Auto 0.6 K/mm3 (0.1-0.6); Monocytes Percent Auto 5.4 % (2.6-8.5); Neutrophils Percent Auto 46.3 % (45.5-73.1); Platelet Count Result 142 k/mm3 (150-375); Red Cell Distribution Width 13.8 % (11.5-14.5); White Blood Count 10.8 K/mm3 (4.5-10.0)
[2023-11-24 16:31] LABS: Iron 51 ug/dL (37-170)
[2023-11-24 16:43] LABS: Percent Iron Saturation 12 % (20-50)
[2023-11-24 17:08] LABS: Alanine Aminotransferase 17 U/L (6-35); Albumin Level 4.1 g/dL (3.5-5.1); Alkaline Phosphatase 87 U/L (38-126); Anion Gap 6 mmol/L (4-12); Aspartate Amino Transferase 23 U/L (14-36); Bilirubin,Total 0.2 mg/dL (0.2-1.3); Blood Urea Nitrogen 15 mg/dL (7-17); Calcium 8.8 mg/dL (8.4-10.2); Carbon Dioxide 31 mmol/L (22-30); Chloride 101 mmol/L (98-107); Estimated Glomerular Filt Rate > 60; Glucose 174 mg/dL (65-110); Potassium 4.1 mmol/L (3.4-5.0); Sodium 138 mmol/L (137-145)
== END 2023-11-24 12:16 | disposition home or self-care (01) ==
LOC: ANHLAB 12:19
PROVIDERS: PCP Family Medicine; Visit Provider Internal Medicine Hematology & Oncology
DX: D64.9 Anemia, unspecified (principal)
CPT/HCPCS: 36415; 80053; 82728; 83540; 83550; 85025

== ENCOUNTER 2024-01-12 14:12 | Outpatient (CLI) | payer MEDICARE, MEDICAID, SELFPAY ==
--- NOTE | ~2024-01-12 | MM_ITS ---
EXAMINATION: MM screening [facility] BI w bertha HISTORY: Screening mammogram TECHNIQUE: Craniocaudal and mediolateral oblique 3-D tomosynthesis images were obtained and synthetic 2-D images were generated. CAD analysis was submitted and interpreted. COMPARISON: 11/11/2029, 07/07/2021, 05/07/2020 BREAST PARENCHYMAL COMPOSITION:Not Dense. There are scattered areas of fibroglandular density. FINDINGS: No suspicious mass, calcification, or architectural distortion are identified in either nisa ast to suggest malignancy. There has been no suspicious interval change. IMPRESSION: No mammographic evidence of malignancy. Recommend routine screening mammography in one year. BI-RADS Category 1: Negative Reviewed, dictated and finalized at location . 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
== END 2024-01-12 14:13 | disposition home or self-care (01) ==
LOC: ANHIMG 14:14
PROVIDERS: PCP Family Medicine; Visit Provider Family Medicine
DX: Z12.31 Encounter for screening mammogram for malignant neoplasm of breast (principal)
CPT/HCPCS: 77063; 77067

== ENCOUNTER 2024-04-10 14:28 | Outpatient (CLI) | payer MEDICARE, MEDICAID, SELFPAY ==
--- OUTSIDE RECORDS SUMMARY | 2024-04-10 14:44 | XMS_ITS | Encounter Summary ---
Author Organization [facility] Address [facility] access hospital[address] [place] [address] Care Team Providers Care Industrial Therapist Name Role Phone Magdy Alexander MD Primary Care Provider [phone] Lukasz Bell MD Unavailable [phone] Reason for Referral * Imaging (Routine) - New Request Specialty Diagnoses / Procedures Referred By Contac t Referred To Contact RADIOLOGY Diagnoses BRUNER (dyspnea on exertion) Procedures NM PHARM NUC STRESS TEST 1 DAY W TRACING Clarence Rdz MD [facility], [address] [place] [address] Phone: tel: fax: Referral ID Status Reason Start Date Expiration Date V isits Requested Visits Authorized [id number] New Request 04/04/2024 04/04/2025 1 1 NT PROGRAM MANAGER * Procedure (Routine) - New Request Specialty Diagnoses / Procedures Referred By Contac t Referred To Contact Diagnoses BRUNER (dyspnea on exertion) Procedures CARDIOLOGY STRESS TEST ONLY, EXERCISE Clarence Rdz MD [facility], [address] [place] [address] Phone: tel: fax: Referral ID Status Reason Start Date Expiration Date V isits Requested Visits Authorized [id number] New Request 04/04/2024 04/04/2025 1 1 NT PROGRAM MANAGER Encounter Details Date Type Department Care Team (Late Contact Info) Description 04/04/2024 [facility] [address] [address] Clarence Rdz MD Three [facility], Suite [facility] [place] [address] Social History Tobacco Use Types Packs/Day Years Used Date Smoking Tobacco: Every Day Cigarettes 1 45 Smokeless Tobacco: Never Alcohol Use Standard Drinks/Week Comments Not Currently 0 (1 standard drink = 0.6 oz pur e alcohol) Rarely PHQ-2 Answer Date Recorded Patient Health Questionnaire-2 Score 0 03/20/2024 Comments No Sex and Gender Information Value Date Recorded Sex Assigned at Female 04/07/2024 12:11 PM TALENT PROGRAM MANAGER Legal Sex Female 11:12 AM CDT Gender Identity Not on file Sexual Orientation Not on file documented as of this encounter Plan of Treatment Upcoming Encounters Date Type Department Care Team (Late st Contact Info) Description 05/11/2024 12:00 PM CDT Appointment [facility] [place] [address] Clarence Rdz MD [facility], [address] [address] 05/11/2024 1:30 PM CDT Office Visit [facility] [address] Clarence Rdz MD Three [facility], [address] [place] [address] 07/17/2024 12:00 PM CDT Office Visit [facility] [address] [place] [address] Clarence Rdz MD Three [facility] [address] [place] [address] 08/14/2024 2:20 PM CDT Office Visit [facility] [address] [facility], [address] [place] [address] Lukasz Bell MD [address] [place] [address] 02/05/2025 10:00 AM TALENT PROGRAM MANAGER Appointment [facility] [place] [address] Reyes Villagomez MD Three [facility]. [address] [place], [place] [address] 02/05/2025 11:00 AM TALENT PROGRAM MANAGER Appointment [facility] [place] [address] Reyes Villagomez MD Three [facility]. [address] [place] [id number] Scheduled Orders Name Type Priority Associated Diagnoses Orde r Schedule CARDIOLOGY STRESS TEST ONLY, EXERCISE Cardiac Services Routine BRUNER (dyspnea on exertion) Expected: 04/04/2024 (Approximate), Expires: 04/04/2025 NM PHARM NUC STRESS TEST 1 DAY W TRACING NUC MED Routine BRUNER (dyspnea on exertion) Expected: 04/04/2024 (Approximate), Expires: 04/04/2025 documented as of this encounter Visit Diagnoses Diagnosis BRUNER (dyspnea on exertion)- Primary Other dyspnea and respiratory abnormality documented in this encounter Additional Health Concerns Infection Onset Date Last Indicated Resolved Time MRSA Comment:10/11/23 +MRSA Left maxillary sinus 10/11/2023 10/11/2023 documented as of this encounter Care Teams Industrial Therapist Relationship Specialty Start Date End Date Magdy Alexander MD [address] [address] PCP - General FAMILY PRACTICE 07/05/20 Lukasz Bell MD [address] [place] [address] Physician NEUROMUSCULOSKELETAL MEDICINE 10/28/23 documented as of this encounter
--- OUTSIDE RECORDS SUMMARY | 2024-04-10 14:44 | XMS_ITS | Referral Summary ---
Author Organization [facility] Address [address] [place] [address] Care Team Providers Care Coil Tester Name Role Phone Magdy Alexander MD Primary Care Provider [phone] Encounters Date Type Department Care Team Description 01/20/2024 Telephone [facility] Scheduling [address] [place] [address] Chorieva, Gulnoza from Last 3 Months Allergies Active Allergy Reactions Criticality Noted Date Comments Hydromorphone Nausea only,Vomiting Low Reaction: NAUSEA, VOMITING, , , Terbinafine Hives Medium 07/01/2021 Pollen Extracts Other (See comments) Reaction: OTHER REACTION, Medications nitroglycerin (NITROSTAT) 0.[address] 1 tablet (0.4mg) under the tongue as needed for chest pain 25 1 01/30/20 09 Active HYDROcodone-ac etaminophen (NORCO) 5-325 mg per tabletIndicati ons:Pain Take 1-2 tablets by mouth every 6 (six) hours as needed Active gabapentin (NEURONTIN) 300 mg capsule Take 2 capsules (600 mg total) by mouth 3 (three) times a day Two tablets tid Active escitalopram (LEXAPRO) 10 mg tablet Take 1 tablet (10 mg total) by mouth every morning Active triamcinolone (KENALOG) 0.5 % cream Apply topically 3 (three) times a day Active lisinopriL (PRINIVIL,ZEST RIL) 40 mg tablet Take 1 tablet (40 mg total) by mouth daily Active diclofenac sodium (VOLTAREN) 1 % gel Apply topically as needed Active rOPINIRole (REQUIP) 1 mg tablet Take 2 tablets (2 mg total) by mouth nightly Active loperamide (IMODIUM) 2 mg capsule Take 1 capsule (2 mg total) by mouth 4 (four) times a day as needed for diarrhea Active omeprazole (PriLOSEC) 40 mg capsule Take 1 capsule (40 mg total) by mouth daily 05/31/19 22 Active calcium carbonate-alfonso min D3 1,500 mg (600mg elemental) -800 unit per tablet Take 1 tablet by mouth daily 06/18/19 22 Active denosumab (PROLIA) 60 mg/mL syringe Inject 1 mL (60 mg total) under the skin every 6 (six) months Active cyanocobalamin (Vitamin B-12) 1,000 mcg tabletIndicati ons:Prevention of Vitamin B12 Deficiency Take 1 tablet (1,000 mcg total) by mouth daily Active fluticasone propionate (FLONASE) 50 mcg/actuation nasal spray Administer 2 sprays into each nostril 2 (two) times a day 10/08/19 22 Active Breztri Aerosphere 160-9-4.8 mcg/actuation HFA aerosol inhaler Inhale 2 puffs 2 (two) times a day 04/25/19 23 Active cyclobenzaprin e (FLEXERIL) 10 mg tablet Take 1 tablet (10 mg total) by mouth 3 (three) times a day as needed for muscle spasms 04/30/19 23 Active aspirin 81 mg enteric coated tablet Take 1 tablet (81 mg total) by mouth daily 90 tablet 6 05/07/19 23 Active albuterol (PROAIR RESPICLICK) 90 mcg/actuation inhaler Inhale 2 puffs every 6 (six) hours as needed for wheezing Active fexofenadine HCl (JAS ORAL) Take by mouth Active ascorbic acid (ascorbic acid with giovanna hips) 500 mg tablet,chewabl e Active rivaroxaban (Xarelto) 2.5 mg tablet TAKE 1 TABLET(2.5 MG) BY MOUTH TWICE DAILY 180 tablet 1 07/15/19 24 Active amLODIPine (NORVASC) 10 mg tablet Take 1 tablet (10 mg total) by mouth daily 30 tablet 11 09/27/19 24 025 Active spironolactone (ALDACTONE) 25 mg tablet Take 1 tablet (25 mg total) by mouth daily 30 tablet 11 09/27/19 24 025 Active rosuvastatin (CRESTOR) 40 mg tablet TAKE 1 TABLET(40 MG) BY MOUTH DAILY 90 tablet 03/13/19 25 Active rosuvastatin (CRESTOR) 40 mg tablet TAKE 1 TABLET(40 MG) BY MOUTH DAILY 90 tablet 12/15/19 24 025 Discontinued Active Problems Problem Noted Date Diagnosed Date Neuropathic pain, leg, bilateral 08/20/2022 Muscle cramps 02/19/2022 Medication side effects 02/19/2022 Pulmonary HTN 10/17/2021 GRANT on CPAP 10/17/2021 Morbid (severe) obesity due to excess calories 0 08/06/2021 Claudication in peripheral vascular disease 09/2021 Subclavian artery stenosis, left (CMS/HCC) 04/08 Mixed hyperlipidemia 01/17/2021 Coronary artery disease invo lving klamath coronary artery of klamath heart without angina pectoris 05/27/2020 HTN (hypertension), benign 05/27/2020 S/P coronary artery stent placement 05/27/2020 Tobacco abuse 05/27/2020 Mass of breast 07/17/2010 Resolved Problems Problem Noted Date Diagnosed Date Resolved Date Numbness and tingling of both feet 08/20/2022 08/20/2022 Back pain with right-sided sciatica 08/20/2022 08/20/2022 Dyslipidemia 05/27/2020 01/17/2021 Preoperative cardiovascular examination 05/27/2020 04/08/2021 Immunizations Name Administration Dates Next Due Influenza, Quadrivalent, Laila l Culture-based MDCK, Preservative Free, Antibiotic Free, Intramuscular 02/06/2021,12/14/2019,12/30/2018,12/31,01/06/2017 Influenza, Quadrivalent, Spl it, Preservative Free, Intramuscular 01/22/2016 Influenza, Trivalent, IM (MDV) 12/30/2012 Social History Tobacco Use Types Packs/Day Years Used Date Smoking Tobacco: Every Day Cigarettes Smokeless Tobacco: Never Tobacco Cessation:Ready to Q uit: No; Counseling Given: Not Answered Comments:Counseling given, Reach out to PCP for assistance with quitting. Alcohol Use Standard Drinks/Week Comments No 0 (1 standard drink = 0.6 oz pur e alcohol) AUDIT-C Answer Date Recorded Frequency of Alcohol Consumption Not on file 11/27/2021 Q2: How many drinks containi ng alcohol do you have on a typical day when you are drinking? Patient does not drink Frequency of Binge Drinking Not on file 10/31 Comments No Sex and Gender Information Value Date Recorded Sex Assigned at Not on file Legal Sex Female 9:27 AM CASE MANAGER SPECIALIST Gender Identity Not on file Sexual Orientation Not on file Last Filed Vital Signs Vital Sign Reading Time Taken Comments Blood Pressure 124/68 06/16/2023 3:47 PM CDT Pulse 66 06/16/2023 3:47 PM CDT Temperature 36.5 C (97.7 F) 11/27/2021 5:22 PM CDT Respiratory Rate 18 12/14/2022 1:24 PM CDT Oxygen Saturation 95% 06/16/2023 3:47 PM CDT Inhaled Oxygen Concentration - - Weight 92.8 kg (204 lb 9.6 oz) 06/16/2023 3:47 P M CDT Height 165.1 cm (5' 5 ) 06/16/2023 3:47 PM CDT Body Mass Index 34.05 06/16/2023 3:47 PM CDT Plan of Treatment Not on file Medical Devices Implanted Type Area Dependency Director Device Identifier Shelf Expiration Date Model / Serial / Lot [employer] Peripheral Vascular Lifestream 8mm 37mm 80cm Balloon Expandable Low Profile Cover [id number] - [id number] Implanted:Qty: 1 on 07/03/2021 by Jose Bailey MD at [facility] Stent Right: Iliac [employer] 10/30/2023 [id number] / / [id number] [employer] Peripheral [employer]ascular Lifestream 7mm 37mm 80cm Balloon Expandable Low Profile Cover [id number] - [id number] Implanted:Qty: 1 on 11/27/2021 by Jose Bailey MD at [facility] [employer] Peripheral Vascular 04/29/2023 [id number] / / [id number] Mynx Control 6-7fr 2 Mode Balloon Catheter Sealant Lock Syringe [id number] - [id number] Implanted:Qty: 1 on 11/27/2021 by Jose Bailey MD at [facility] [employer] 08/29/2023 [id number] / / [id number] Insurance MEDICARE SOLUTIONS IDPA MEDICARE SOLUTIONS IDPA MEDICARE SOLUTIONS IDTN Care Teams Coil Tester Relationship Specialty Start Date End Date Magdy Alexander MD PCP - General 02/17/11
--- OUTSIDE RECORDS SUMMARY | 2024-04-10 14:44 | XMS_ITS | Continuity of Care Document ---
Author Organization [facility] Address [address] [place] [address] Phone Care Team Providers Care Associate Quality Engineer Name Role Phone Pietro Byrd Unavailable Unavailable Advance Directives Directive Yes / No Effective Date File Name No Information Encounters Encounter Description Practice Location Reason(s) For Visit Diagnoses Date Provider Providers Copied on Encounter [facility], [address], [place], [place], [id number], [place] tel:[phone] [facility] No Information [address] , [address], [place], [address], [place]. tel:[phone] Family History Family Member Type Diagnosis Age At Onset No Information Payers Payer name Insurance type Covered constitution party ID Authoriza tion(s) [employer] SOI CI [id number] Social History Type Description Quantity Date Captured Comments Sex Female Smoking Status No Information Chief Complaint And Reason For Visit No Information Reason For Referral Reason For Referral No Information History Of Present Illness Encounter Date Complaint History Of Prese nt Illness No Information Functional Status Date Functional Assessmen t No Information Instructions Date Instruction Additional Infor mation No Information Assessments Type Assessment Date No Information Patient Care Teams Name Effective Dates (start - stop) Status Members No Information
--- OUTSIDE RECORDS SUMMARY | 2024-04-10 14:44 | XMS_ITS | Clinical Summary ---
Author Organization [facility] Address [address] [place] [address] Care Team Providers Care Senior Logistics Manager Name Role Phone Magdy Alexander MD Primary Care Provider [phone] Lukasz Bell MD Unavailable [phone] Allergies Active Allergy Reactions Criticality Noted Date Comments Hydromorphone Hives,Nausea and Vomiting,Nausea Only,Rash,Vomiting High 01/06/2023 Reaction: NAUSEA, VOMITING, , , Terbinafine Rash High 07/01/2021 Medications rosuvastatin 40 MG tablet Take 1 tablet (40 mg total) by mouth nightly at bedtime. Active escitalopram 10 MG tablet Take 1 tablet (10 mg total) by mouth daily. Active HYDROcodone-a cetaminophen 5-325 MG tabletIndicat ions:Chronic Pain Take 1-2 tablets by mouth every 6 (six) hours as needed for Pain. Indications: Chronic Pain Active diclofenac sodium 1 % gel Apply topically 4 (four) times daily. Active triamcinolone 0.5 % cream Apply topically 3 (three) times daily. Apply to feet Active aspirin EC (ECOTRIN) 81 MG tablet Take 1 tablet (81 mg total) by mouth daily. Active Albuterol Sulfate 108 (90 Base) MCG/ACT AEROSOL POWDER, BREATH ACTIVATED Inhale 2 puffs into the lungs. Active BREZTRI AEROSPHERE 160-9-4.8 MCG/ACT Aerosol Inhale 2 puffs into the lungs 2 (two) times daily. 04/25/19 23 Active loperamide (IMODIUM) 2 MG capsule Take 1 capsule (2 mg total) by mouth. Active denosumab (PROLIA) 60 MG/ML injection Inject 1 mL (60 mg total) into the skin every 6 (six) months. Active nitroglycerin (NITROSTAT) 0.[address] 1 tablet (0.4 mg total) under the tongue every 5 (five) minutes as needed. Active omeprazole (PRILOSEC) 40 MG capsule Take 1 capsule (40 mg total) by mouth daily. 12/08/19 23 Active rOPINIRole (REQUIP) 1 MG tablet Take 2 tablets (2 mg total) by mouth nightly at bedtime. Active cyclobenzapri ne (FLEXERIL) 10 MG tablet Take 1 tablet (10 mg total) by mouth. 04/30/19 23 Active fexofenadine (JAS ALLERGY) 180 MG tablet Take 1 tablet (180 mg total) by mouth daily. Active rivaroxaban (XARELTO) 2.5 MG tablet Take 1 tablet (2.5 mg total) by mouth 2 (two) times daily. 01/19/20 23 Active Trolamine Salicylate (ASPERCREME) 10 % Lotion Apply 10 % topically as needed. Active Calcium Carbonate-Vit cox D (CALTRATE 600+D OR) Take 600 mg by mouth 2 (two) times daily. Active vitamin B-12 (CYANOCOBALAM IN) (CYANOCOBALAM IN) 1000 mcg tablet Take 1 tablet (1,000 mcg total) by mouth daily. Active clobetasol (TEMOVATE) 0.05 % ointment Apply topically 2 (two) times daily. 05/06/19 24 Active Sodium Chloride-Sodi um Bicarb (NETI POT SINUS WASH NA) 10/12/19 24 Active lisinopril (PRINIVIL) 40 MG tablet Take 1 tablet (40 mg total) by mouth daily. 02/08/20 24 Active pregabalin (LYRICA) 50 MG capsuleIndica tions:Neuropa thy Take 1 capsule (50 mg total) by mouth 2 (two) times daily. 60 capsule 4 03/20/19 25 Active budesonide (PULMICORT) 0.5 MG/2ML nebulizer solution EMPTY 2 VIALS INTO IDS, ADD DISTILLED WATER AND SALINE PACKET, IRRIGATE ONCE DAILY 03/03/19 25 Active gabapentin 300 MG capsule Take 2 capsules (600 mg total) by mouth 3 (three) times daily. 025 Discontinued(F ormulary change) LISINOPRIL OR Take 40 mg by mouth every morning. 025 Discontinued budesonide (PULMICORT) 1 MG/2ML nebulizer solution Take 2 mLs (1 mg total) by nebulization 2 (two) times daily. 10/13/19 025 Discontinued Active Problems Problem Noted Date Diagnosed Date Anemia 12/01/2023 Neuropathy involving both lower extremities 04/2023 Previous back surgery 12/01/2023 Restless leg syndrome 12/01/2023 Neuropathic pain, leg, bilateral 08/20/2022 Medication side effects 02/19/2022 Muscle cramps 02/19/2022 Disintegration of vascular stent 11/12/2021 GRANT on CPAP 10/17/2021 Pulmonary HTN ([facility]) 10/17/2021 Morbid (severe) obesity due to excess calories ([facility]) 08/06/2021 Peripheral vascular disease 04/08/2021 Subclavian artery stenosis, left 04/08/2021 Bleeding from the nose 02/14/2021 Mixed hyperlipidemia 01/17/2021 Coronary artery disease invo lving [place] coronary artery of [place] heart without angina pectoris 05/27/2020 HTN (hypertension), benign 05/27/2020 S/P coronary artery stent placement 05/27/2020 Tobacco abuse 05/27/2020 Mass of breast 07/17/2010 Heart disease 06/10/2002 Encounters Date Type Department Care Team Description 04/07/2024 12:11 PM RADAR SYSTEMS ENGINEER - 04/07/2024 11:59 PM [facility] Hospital Encounter [facility] [place] [address] Clarence Rdz MD Arrived Discharge Disposition: Home or Self Care (Routine Discharge) 04/07/2024 Travel 04/04/2024 Orders Only [facility] [place] [address] [place] [address] Clarence dRz MD 04/04/2024 MyChart Message Enc [facility] [address] [place] [address] Clarence Rdz MD Echocardiogram appointment 04/03/2024 3:15 PM RADAR SYSTEMS ENGINEER Office Visit [facility] [address] [place] [address] Clarence Rdz MD Coronary Artery Disease ([facility]) 04/03/2024 Travel 03/20/2024 1:40 PM RADAR SYSTEMS ENGINEER Office Visit [facility] Multispecialty [facility] - [facility] [address] [facility], [address] [place] [address] Lukasz Bell MD Follow Up 03/20/2024 Travel 02/25/2024 Orders Only [facility] [place] [address] Reyes Contreras MD 02/25/2024 Telephone [facility] [place] [address] Reyes Contreras MD Results (CTA BLE W/ CTA ABD PELVIS) 02/11/2024 12:00 PM RADAR SYSTEMS ENGINEER - 02/11/2024 11:59 PM RADAR SYSTEMS ENGINEER Hospital Encounter [facility] [place] [address] Reyes Contreras MD Discharge Disposition: Home or Self Care (Routine Discharge) 02/11/2024 Travel 01/19/2024 3:30 PM RADAR SYSTEMS ENGINEER Office Visit [facility] [place] [address] Reyes Contreras MD Follow Up 01/19/2024 Orders Only [facility] [place] [address] Reyes Contreras MD 01/19/2024 Travel 01/17/2024 Orders Only [facility], [address] [address] Dianne Luque MA from Last 3 Months Immunizations Name Administration Dates Next Due Flucelvax 6 Months+ (Prefill ed Syringe) 12/14/2019,12/30/2018,12/31/2017, 017 Influenza (Generic) 12/30/2012 Influenza Adult (Generic) 02/06/2021,01/22/2016 Family History Medical History Relation Comments Alzheimer's disease Father Heart Disease Father Heart Disease Maternal Grandfather CHF Hypertension Maternal Grandfather Heart Disease Maternal Grandmother Hypertension Mother Lung Cancer Mother Mesothelioma Stroke Mother Heart Disease Paternal Grandfather Hypertension Paternal Grandfather Alzheimer's disease Paternal Grandmother Hypertension Paternal Grandmother Relation Status Comments Father Maternal Grandfather Maternal Grandmother Mother Paternal Grandfather Paternal Grandmother Social History Tobacco Use Types Packs/Day Years Used Date Smoking Tobacco: Every Day Cigarettes 1 45 Smokeless Tobacco: Never Tobacco Cessation:Ready to Q uit: Not Asked; Counseling Given: Yes Alcohol Use Standard Drinks/Week Comments Not Currently 0 (1 standard drink = 0.6 oz pur e alcohol) Rarely PHQ-2 Answer Date Recorded Patient Health Questionnaire-2 Score 0 03/20/2024 Comments No Sex and Gender Information Value Date Recorded Sex Assigned at Female 04/07/2024 12:11 PM RADAR SYSTEMS ENGINEER Legal Sex Female 11:12 AM CDT Gender Identity Not on file Sexual Orientation Not on file Last Filed Vital Signs Vital Sign Reading Time Taken Comments Blood Pressure 142/70 04/03/2024 3:20 PM RADAR SYSTEMS ENGINEER Pulse 66 04/03/2024 3:20 PM RADAR SYSTEMS ENGINEER Temperature 36.2 C (97.2 F) 03/20/2024 1:40 PM RADAR SYSTEMS ENGINEER Respiratory Rate 16 02/18/2023 2:06 PM RADAR SYSTEMS ENGINEER Oxygen Saturation 96% 04/03/2024 3:20 PM RADAR SYSTEMS ENGINEER Inhaled Oxygen Concentration - - Weight 91.9 kg (202 lb 9.6 oz) 04/03/2024 3:20 P M RADAR SYSTEMS ENGINEER Height 165.1 cm (5' 5 ) 04/03/2024 3:20 PM RADAR SYSTEMS ENGINEER Body Mass Index 33.71 04/03/2024 3:20 PM RADAR SYSTEMS ENGINEER Plan of Treatment Upcoming Encounters Date Type Department Care Team (Late st Contact Info) Description 05/11/2024 12:00 PM CDT Appointment [facility] Nuclear Medicine [facility] [place] [address] Clarence Rdz MD [facility] [place] [address] 05/11/2024 1:30 PM CDT Office Visit [facility] [place] [address] Clarence Rdz MD [facility] [address] [place] [address] 07/17/2024 12:00 PM CDT Office Visit [facility] [address] [place] [address] Clarence Rdz MD [facility] [address] [place] [address] 08/14/2024 2:20 PM CDT Office Visit [facility] Multispecialty Care - [facility] [address] [facility], [address] [place] [address] Lukasz Bell MD [address] [place] [address] 02/05/2025 10:00 AM RADAR SYSTEMS ENGINEER Appointment [facility] [place] [address] Reyes Contreras MD [facility] [place] [address] 02/05/2025 11:00 AM RADAR SYSTEMS ENGINEER Appointment [facility] Lab [address] [place], [place] [id number] Reyes Contreras MD [facility] [place], [place] [id number] Health Maintenance Due Date Last Done Comments ASCVD LDL 1962 ASCVD Statin 1962 Colorectal Cancer Screening Colonoscopy (10 Years) 1962 Annual Physical 1965 Pneumococcal Vaccine: Pediatrics (0 to 5 Years) and At-Risk Patients (6 to 64 Years) (1 of 2 - PCV) 1968 Hepatitis C 1980 DTaP, Tdap and Td Vaccines (1 - Tdap) 1981 Mammogram Screening 2002 Lung Cancer Screening 2012 Zoster Vaccines (1 of 2) 2012 RSV Immunization or 60+ Years (1 - Risk 60-74 years 1-dose series) 2022 COVID-19 Vaccine (3 - season) 2023 06/03/2020, 05/12/2020 Influenza Adult (#1) 2023 02/06/2021, 12/14/2019, 12/30/2018, Additional history exists PHQ-2 (Physician [place]) Completed 03/20/2024 Meningococcal B Vaccine Aged Out No l onger eligible based on patient's age to complete this topic Meningococcal Vaccine Aged Out No bennett minal eligible based on patient's age to complete this topic RSV Immunizations Under 20 Months Aged Out No longer eligible based on patient's age to complete this topic Medical Devices Implanted Type Area Lasting Floorworker Device Identifier Shelf Expiration Date Model / Serial / Lot Iol Donaldo Toric [id number] - [id number] Implanted:Qty : 1 on 07/08/2020 by Arnulfo Almodovar MD at [facility] Lens Right: Eye DONALDO - SURGICAL DIV 08/28/2021 [id number] / [id number] / Spine Components Spine Components Spine Lumbar Procedures Procedure Name Priority Date/Time Associated Diagnosis Comments CTA LOW EXT GAUTAM Routine 02/11/2024 12:34 PM RADAR SYSTEMS ENGINEER PVD (peripheral vascular disease) (CMS/HCC) CTA ABD+PEL Routine 02/11/2024 12:31 PM RADAR SYSTEMS ENGINEER Iliac artery stenosis, bilateral (CMS/HCC) Symptoms involving cardiovascular system from Last 3 Months Results * CTA LOW EXT GAUTAM (02/11/2024 12:34 PM RADAR SYSTEMS ENGINEER) Anatomical Region Laterality Modality Extremity Computed Tomogra phy 02/24/2024 9:40 AM RADAR SYSTEMS ENGINEER Impressions 02/24/2024 10:00 AM RADAR SYSTEMS ENGINEER IMPRESSION: 1. Atherosclerosis without significant arterial stenosis in the abdomen, pelvis, and bilateral lower extremities.. 2. Chronic/nonemergent findings as above. Referred By: REYES CONTRERAS Interpreted By: Elise Mac DO, 02/24/2024 9:40 AM Narrative 02/24/2024 10:00 AM RADAR SYSTEMS ENGINEER [address] [address] STUDY: CTA LOW EXT GAUTAM, CTA ABD+PEL: 02/11/2024 12:13 PM CLINICAL INFORMATION: EVAL FOR ARTERIAL STENOSIS COMPARISON: None. TECHNIQUE: CT acquisition of the abdomen, pelvis, and bilateral lower extremities before and after the administration of intravenous contrast following departmental CTA abdomen with bilateral lower extremity runoff technique. Coronal, sagittal, 3-D, and MIP images provided. A dose lowering technique was utilized for this procedure which may include but is not limited to dose reduction techniques, automated exposure control, and/or the use of iterative reconstruction in accordance with ALARA principle. IV Contrast: 120 mL Isovue 370 Oral contrast: None. FINDINGS: ARTERIES: AORTA. There is moderate atherosclerotic plaque. CELIAC AXIS: Mild plaque without significant stenosis. SUPERIOR MESENTERIC ARTERY: No stenosis. INFERIOR MESENTERIC ARTERY: Mild plaque without significant stenosis RIGHT RENAL ARTERY: No stenosis. LEFT RENAL ARTERY: Moderate plaque with mild stenosis at the ostium. RIGHT COMMON ILIAC ARTERY: Patent stent graft in place. LEFT COMMON ILIAC ARTERY: Moderate plaque without significant stenosis RIGHT EXTERNAL ILIAC ARTERY: Mild plaque without flow-limiting stenosis. LEFT EXTERNAL ILIAC ARTERY: No stenosis. RIGHT INTERNAL ILIAC ARTERY: Mild to moderate plaque without flow-limiting stenosis. LEFT INTERNAL ILIAC ARTERY: Mild plaque without flow-limiting stenosis. RIGHT COMMON FEMORAL ARTERY: Mild to moderate plaque without flow-limiting stenosis LEFT COMMON FEMORAL ARTERY: Mild plaque without flow-limiting stenosis RIGHT DEEP FEMORAL ARTERY: No significant stenosis. LEFT DEEP FEMORAL ARTERY: No significant stenosis. RIGHT SUPERFICIAL FEMORAL ARTERY: No stenosis. LEFT SUPERFICIAL FEMORAL ARTERY: No significant stenosis RIGHT POPLITEAL ARTERY: Mild to moderate calcification without significant stenosis LEFT POPLITEAL ARTERY: Mild opacification without malignant stenosis RIGHT TIBIOPERONEAL TRUNK: No stenosis. LEFT TIBIOPERONEAL TRUNK: No stenosis. RIGHT ANTERIOR TIBIAL ARTERY: No stenosis. LEFT ANTERIOR TIBIAL ARTERY: No stenosis. RIGHT POSTERIOR TIBIAL ARTERY: No stenosis. LEFT POSTERIOR TIBIAL ARTERY: No stenosis. RIGHT PERONEAL ARTERY: No stenosis. LEFT PERONEAL ARTERY: No stenosis. LOWER CHEST: Calcified right basilar granuloma. Coronary artery calcifications. ABDOMEN/PELVIS: Liver: Normal. Gallbladder/biliary: Postcholecystectomy. Common bile duct measuring 1.8 cm. No intrahepatic biliary ductal dilatation Pancreas: Unremarkable. Spleen: Normal. Adrenal glands: Normal. Kidneys and ureters: No hydronephrosis or hydroureter. No renal calcifications. 0.6 cm left renal cyst, no further imaging follow-up is indicated. Bladder: Normal. Reproductive organs: Unremarkable. Stomach/bowel: Nonobstructive appearance. Appendix: Normal. Lymph nodes: No lymphadenopathy. Peritoneum: No intraperitoneal free air. No intraperitoneal free fluid. MUSCULOSKELETAL: Abdominal wall: No soft tissue mass. Tiny fat-containing right inguinal hernia. Bones: No acute osseous abnormality. Anterior fusion of L5-S1. Multilevel spondylosis. Osseous fusion of bilateral calcaneal-talar joint Soft tissues: Right suprapatellar enthesophyte. Bilateral calcaneal spurs. Procedure Note Elise Mac DO - 02/24/[address] [address] STUDY: CTA LOW EXT GAUTAM, CTA ABD+PEL: 02/11/2024 12:13 PM CLINICAL INFORMATION: EVAL FOR ARTERIAL STENOSIS COMPARISON: None. TECHNIQUE: CT acquisition of the abdomen, pelvis, and bilateral lowerextremities before and after the administration of intravenous contrastfollowing departmental CTA abdomen with bilateral lower extremity runofftechnique. Coronal, sagittal, 3-D, and MIP images provided. A doselowering technique was utilized for this procedure which may include butis not limited to dose reduction techniques, automated exposure control,and/or the use of iterative reconstruction in accordance with Sravani. IV Contrast: 120 mL Isovue 370 Oral contrast: None. FINDINGS: ARTERIES: AORTA. There is moderate atherosclerotic plaque. CELIAC AXIS: Mild plaque without significant stenosis. SUPERIOR MESENTERIC ARTERY: No stenosis. INFERIOR MESENTERIC ARTERY: Mild plaque without significant stenosis RIGHT RENAL ARTERY: No stenosis. LEFT RENAL ARTERY: Moderate plaque with mild stenosis at the ostium. RIGHT COMMON ILIAC ARTERY: Patent stent graft in place. LEFT COMMON ILIAC ARTERY: Moderate plaque without significant stenosis RIGHT EXTERNAL ILIAC ARTERY: Mild plaque without flow-limiting stenosis. LEFT EXTERNAL ILIAC ARTERY: No stenosis. RIGHT INTERNAL ILIAC ARTERY: Mild to moderate plaque without flow- limitingstenosis. LEFT INTERNAL ILIAC ARTERY: Mild plaque without flow-limiting stenosis. RIGHT COMMON FEMORAL ARTERY: Mild to moderate plaque without flow- limitingstenosis LEFT COMMON FEMORAL ARTERY: Mild plaque without flow-limiting stenosis RIGHT DEEP FEMORAL ARTERY: No significant stenosis. LEFT DEEP FEMORAL ARTERY: No significant stenosis. RIGHT SUPERFICIAL FEMORAL ARTERY: No stenosis. LEFT SUPERFICIAL FEMORAL ARTERY: No significant stenosis RIGHT POPLITEAL ARTERY: Mild to moderate calcification without significantstenosis LEFT POPLITEAL ARTERY: Mild opacification without malignant stenosis RIGHT TIBIOPERONEAL TRUNK: No stenosis. LEFT TIBIOPERONEAL TRUNK: No stenosis. RIGHT ANTERIOR TIBIAL ARTERY: No stenosis. LEFT ANTERIOR TIBIAL ARTERY: No stenosis. RIGHT POSTERIOR TIBIAL ARTERY: No stenosis. LEFT POSTERIOR TIBIAL ARTERY: No stenosis. RIGHT PERONEAL ARTERY: No stenosis. LEFT PERONEAL ARTERY: No stenosis. LOWER CHEST: Calcified right basilar granuloma. Coronary artery calcifications. ABDOMEN/PELVIS: Liver: Normal. Gallbladder/biliary: Postcholecystectomy. Common bile duct measuring 1.8cm. No intrahepatic biliary ductal dilatation Pancreas: Unremarkable. Spleen: Normal. Adrenal glands: Normal. Kidneys and ureters: No hydronephrosis or hydroureter. No renalcalcifications. 0.6 cm left renal cyst, no further imaging follow-up isindicated. Bladder: Normal. Reproductive organs: Unremarkable. Stomach/bowel: Nonobstructive appearance. Appendix: Normal. Lymph nodes: No lymphadenopathy. Peritoneum: No intraperitoneal free air. No intraperitoneal free fluid. MUSCULOSKELETAL: Abdominal wall: No soft tissue mass. Tiny fat-containing right inguinalhernia. Bones: No acute osseous abnormality. Anterior fusion of L5-S1.Multilevel spondylosis. Osseous fusion of bilateral calcaneal-talarjoint Soft tissues: Right suprapatellar enthesophyte. Bilateral calcanealspurs. IMPRESSION: 1. Atherosclerosis without significant arterial stenosis in the abdomen,pelvis, and bilateral lower extremities.. 2. Chronic/nonemergent findings as above. Referred By: REYES CONTRERAS Interpreted By: Elise Mac DO, 02/24/2024 9:40 AM Reyes Contreras MD CT Final Result * CTA ABD+PEL (02/11/2024 12:31 PM RADAR SYSTEMS ENGINEER) Anatomical Region Laterality Modality Abdomen, Pelvis Computed Tomogra phy 02/24/2024 9:40 AM RADAR SYSTEMS ENGINEER Impressions 02/24/2024 10:00 AM RADAR SYSTEMS ENGINEER IMPRESSION: 1. Atherosclerosis without significant arterial stenosis in the abdomen, pelvis, and bilateral lower extremities.. 2. Chronic/nonemergent findings as above. Referred By: REYES CONTRERAS Interpreted By: Elise Mac DO, 02/24/2024 9:40 AM Narrative 02/24/2024 10:00 AM RADAR SYSTEMS ENGINEER [facility] [address] [place], [place] [address] STUDY: CTA LOW EXT GAUTAM, CTA ABD+PEL: 02/11/2024 12:13 PM CLINICAL INFORMATION: EVAL FOR ARTERIAL STENOSIS COMPARISON: None. TECHNIQUE: CT acquisition of the abdomen, pelvis, and bilateral lower extremities before and after the administration of intravenous contrast following departmental CTA abdomen with bilateral lower extremity runoff technique. Coronal, sagittal, 3-D, and MIP images provided. A dose lowering technique was utilized for this procedure which may include but is not limited to dose reduction techniques, automated exposure control, and/or the use of iterative reconstruction in accordance with ALARA principle. IV Contrast: 120 mL Isovue 370 Oral contrast: None. FINDINGS: ARTERIES: AORTA. There is moderate atherosclerotic plaque. CELIAC AXIS: Mild plaque without significant stenosis. SUPERIOR MESENTERIC ARTERY: No stenosis. INFERIOR MESENTERIC ARTERY: Mild plaque without significant stenosis RIGHT RENAL ARTERY: No stenosis. LEFT RENAL ARTERY: Moderate plaque with mild stenosis at the ostium. RIGHT COMMON ILIAC ARTERY: Patent stent graft in place. LEFT COMMON ILIAC ARTERY: Moderate plaque without significant stenosis RIGHT EXTERNAL ILIAC ARTERY: Mild plaque without flow-limiting stenosis. LEFT EXTERNAL ILIAC ARTERY: No stenosis. RIGHT INTERNAL ILIAC ARTERY: Mild to moderate plaque without flow-limiting stenosis. LEFT INTERNAL ILIAC ARTERY: Mild plaque without flow-limiting stenosis. RIGHT COMMON FEMORAL ARTERY: Mild to moderate plaque without flow-limiting stenosis LEFT COMMON FEMORAL ARTERY: Mild plaque without flow-limiting stenosis RIGHT DEEP FEMORAL ARTERY: No significant stenosis. LEFT DEEP FEMORAL ARTERY: No significant stenosis. RIGHT SUPERFICIAL FEMORAL ARTERY: No stenosis. LEFT SUPERFICIAL FEMORAL ARTERY: No significant stenosis RIGHT POPLITEAL ARTERY: Mild to moderate calcification without significant stenosis LEFT POPLITEAL ARTERY: Mild opacification without malignant stenosis RIGHT TIBIOPERONEAL TRUNK: No stenosis. LEFT TIBIOPERONEAL TRUNK: No stenosis. RIGHT ANTERIOR TIBIAL ARTERY: No stenosis. LEFT ANTERIOR TIBIAL ARTERY: No stenosis. RIGHT POSTERIOR TIBIAL ARTERY: No stenosis. LEFT POSTERIOR TIBIAL ARTERY: No stenosis. RIGHT PERONEAL ARTERY: No stenosis. LEFT PERONEAL ARTERY: No stenosis. LOWER CHEST: Calcified right basilar granuloma. Coronary artery calcifications. ABDOMEN/PELVIS: Liver: Normal. Gallbladder/biliary: Postcholecystectomy. Common bile duct measuring 1.8 cm. No intrahepatic biliary ductal dilatation Pancreas: Unremarkable. Spleen: Normal. Adrenal glands: Normal. Kidneys and ureters: No hydronephrosis or hydroureter. No renal calcifications. 0.6 cm left renal cyst, no further imaging follow-up is indicated. Bladder: Normal. Reproductive organs: Unremarkable. Stomach/bowel: Nonobstructive appearance. Appendix: Normal. Lymph nodes: No lymphadenopathy. Peritoneum: No intraperitoneal free air. No intraperitoneal free fluid. MUSCULOSKELETAL: Abdominal wall: No soft tissue mass. Tiny fat-containing right inguinal hernia. Bones: No acute osseous abnormality. Anterior fusion of L5-S1. Multilevel spondylosis. Osseous fusion of bilateral calcaneal-talar joint Soft tissues: Right suprapatellar enthesophyte. Bilateral calcaneal spurs. Procedure Note Bubba Elise, - 02/24/2024 [facility] [address] [place], [place] [address] STUDY: CTA LOW EXT GAUTAM, CTA ABD+PEL: 02/11/2024 12:13 PM CLINICAL INFORMATION: EVAL FOR ARTERIAL STENOSIS COMPARISON: None. TECHNIQUE: CT acquisition of the abdomen, pelvis, and bilateral lowerextremities before and after the administration of intravenous contrastfollowing departmental CTA abdomen with bilateral lower extremity runofftechnique. Coronal, sagittal, 3-D, and MIP images provided. A doselowering technique was utilized for this procedure which may include butis not limited to dose reduction techniques, automated exposure control,and/or the use of iterative reconstruction in accordance with Sravani. IV Contrast: 120 mL Isovue 370 Oral contrast: None. FINDINGS: ARTERIES: AORTA. There is moderate atherosclerotic plaque. CELIAC AXIS: Mild plaque without significant stenosis. SUPERIOR MESENTERIC ARTERY: No stenosis. INFERIOR MESENTERIC ARTERY: Mild plaque without significant stenosis RIGHT RENAL ARTERY: No stenosis. LEFT RENAL ARTERY: Moderate plaque with mild stenosis at the ostium. RIGHT COMMON ILIAC ARTERY: Patent stent graft in place. LEFT COMMON ILIAC ARTERY: Moderate plaque without significant stenosis RIGHT EXTERNAL ILIAC ARTERY: Mild plaque without flow-limiting stenosis. LEFT EXTERNAL ILIAC ARTERY: No stenosis. RIGHT INTERNAL ILIAC ARTERY: Mild to moderate plaque without flow- limitingstenosis. LEFT INTERNAL ILIAC ARTERY: Mild plaque without flow-limiting stenosis. RIGHT COMMON FEMORAL ARTERY: Mild to moderate plaque without flow- limitingstenosis LEFT COMMON FEMORAL ARTERY: Mild plaque without flow-limiting stenosis RIGHT DEEP FEMORAL ARTERY: No significant stenosis. LEFT DEEP FEMORAL ARTERY: No significant stenosis. RIGHT SUPERFICIAL FEMORAL ARTERY: No stenosis. LEFT SUPERFICIAL FEMORAL ARTERY: No significant stenosis RIGHT POPLITEAL ARTERY: Mild to moderate calcification without significantstenosis LEFT POPLITEAL ARTERY: Mild opacification without malignant stenosis RIGHT TIBIOPERONEAL TRUNK: No stenosis. LEFT TIBIOPERONEAL TRUNK: No stenosis. RIGHT ANTERIOR TIBIAL ARTERY: No stenosis. LEFT ANTERIOR TIBIAL ARTERY: No stenosis. RIGHT POSTERIOR TIBIAL ARTERY: No stenosis. LEFT POSTERIOR TIBIAL ARTERY: No stenosis. RIGHT PERONEAL ARTERY: No stenosis. LEFT PERONEAL ARTERY: No stenosis. LOWER CHEST: Calcified right basilar granuloma. Coronary artery calcifications. ABDOMEN/PELVIS: Liver: Normal. Gallbladder/biliary: Postcholecystectomy. Common bile duct measuring 1.8cm. No intrahepatic biliary ductal dilatation Pancreas: Unremarkable. Spleen: Normal. Adrenal glands: Normal. Kidneys and ureters: No hydronephrosis or hydroureter. No renalcalcifications. 0.6 cm left renal cyst, no further imaging follow-up isindicated. Bladder: Normal. Reproductive organs: Unremarkable. Stomach/bowel: Nonobstructive appearance. Appendix: Normal. Lymph nodes: No lymphadenopathy. Peritoneum: No intraperitoneal free air. No intraperitoneal free fluid. MUSCULOSKELETAL: Abdominal wall: No soft tissue mass. Tiny fat-containing right inguinalhernia. Bones: No acute osseous abnormality. Anterior fusion of L5-S1.Multilevel spondylosis. Osseous fusion of bilateral calcaneal-talarjoint Soft tissues: Right suprapatellar enthesophyte. Bilateral calcanealspurs. IMPRESSION: 1. Atherosclerosis without significant arterial stenosis in the abdomen,pelvis, and bilateral lower extremities.. 2. Chronic/nonemergent findings as above. 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
--- OUTSIDE RECORDS SUMMARY | 2024-04-10 14:44 | XMS_ITS | Encounter Summary ---
Author Organization [facility] [employer] [facility] Address [address] [place] [address] Care Team Providers Care Automation Sales Manager Name Role Phone Magdy Alexander MD Primary Care Provider [phone] Reason for Visit * Reason Onset Date Comments labs for appointment 04/10/2024 Encounter Details Date Type Department Care Team (Late Contact Info) Description 04/10/2024 Telephone [facility] Oncology and Hematology - Jesus Manuel [address] [facility] [address] [place] [address] Reese Sexton MD [address] [facility] [address] [place] [address] labs for appointment Social History Tobacco Use Types Packs/Day Years Used Date Smoking Tobacco: Every Day Cigarettes 1 25 Smokeless Tobacco: Never Alcohol Use Standard Drinks/Week Comments Not Currently 0 (1 standard drink = 0.6 oz pur e alcohol) Comments Unknown Sex and Gender Information Value Date Recorded Sex Assigned at Not on file Legal Sex Female 12:25 PM CDT Gender Identity Not on file Sexual Orientation Not on file documented as of this encounter Miscellaneous Notes * Telephone Encounter - Alexandria Villalobos - 04/10/2024 1:49 PM CST Spoke with patient with appointment reminder and need for lab work. Patient said she would come today and get labs drawn in [address]. Patient stated understanding of needing blood work for appointment ahead of appointment. ETING ADMIN documented in this encounter Plan of Treatment Upcoming Encounters Date Type Department Care Team (Late Contact Info) Description 04/12/2024 2:30 PM MARKETING ADMIN Office Visit [facility] Oncology and Hematology [facility] [address] [facility] [address] [place] [address] Reese Sexton MD [address] [facility] [address] [place] [address] documented as of this encounter Visit Diagnoses Not on filedocumented in this encounter Care Teams Automation Sales Manager Relationship Specialty Start Date End Date Magdy Alexander MD [address] [place] [address] PCP - General Family Practice 01/06/23 documented as of this encounter
--- OUTSIDE RECORDS SUMMARY | 2024-04-10 14:44 | XMS_ITS | Referral Summary ---
Author Organization [facility] Address [address] [place] [address] Care Team Providers Care Stage Hand Name Role Phone Unavailable Primary Care Provider Unavailabl e Source Comments [facility],non-owned Affiliates and Associated Physician Practices is amultiple site organization consisting of ambulatory clinics and hospital sitesin [place], [place], [place] and [place]. This disclosure is being madepursuant to the Care Everywhere program and may not contain all information available regarding this patient. Last updated 17.[facility] [employer] Social History Tobacco Use Types Packs/Day Years Used Date Smoking Tobacco: Never Assessed Sex and Gender Information Value Date Recorded Sex Assigned at Not on file Gender Identity Not on file Sexual Orientation Not on file Plan of Treatment Not on file
--- OUTSIDE RECORDS SUMMARY | 2024-04-10 14:44 | XMS_ITS | Patient Health Summary ---
Author Organization [facility] Address [address] [facility] [address] Care Team Providers Care Embedded Systems Software Engineer Name Role Phone Unavailable Primary Care Provider Unavailabl e Note from [facility],non-owned Affiliates and Associated Physician Practices is amultiple site organization consisting of ambulatory clinics and hospital sitesin [place], [place], [place] and [place]. This disclosure is being madepursuant to the Care Everywhere program and may not contain all information available regarding this patient. 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 The specimen consists of a non-oriented ellipse of skin measuring [id number] mm. Medially divided due to size inked red. Also, there a lesion measuring 13x9 mm. The margin is inked green. The 12 o'clock and 6 o'clock tips are submitted in cassette 1. The remainder of the ellipse is serially sectioned and submitted in cassette 2 - 12 clock face. Jar 0. 3 11:35 AM [facility] DERMATOPATHOLOGY LABORATORY Microscopic Description Specimen A. SKIN, left superior medial mid back: There are fibroblasts and collagen bundles oriented parallel to the skin surface. There are elongated blood vessels, some of which are oriented perpendicular to the skin surface. No residual melanoma is identified. 3 11:35 AM [facility] DERMATOPATHOLOGY LABORATORY Disclaimer An external and internal positive and negative controls are appropriate for the histochemical, immunohistochemical and immunofluorescence stain(s) in this case (if any), except where stated explicitly. The performance characteristics of the stain(s) cited in this report were developed and its performance characteristic determined by the Dermatopathology Laboratory at [facility], directed by Dr. Yann Blunt. These tests need not be, and therefore are not, approved by the [place] Food and Drug Administration. The tests are used for clinical purposes. Billing Codes Specimen Charges Stain Charges 43872 1 3 11:35 AM [facility] DERMATOPATHOLOGY LABORATORY Embedded Images 3 11:35 AM [facility] DERMATOPATHOLOGY LABORATORY Pathology/Cytolo gy TISSUE SPECIMEN FROM SKIN / Unknown 02/04/2023 3:33 AM RUG WASHER 02/05/2023 12:19 PM RUG WASHER Jose Toussaint MD LAB - PATHOLOGY/CYTO LOGY ORDERABLES DERMATOPATHOLOGY LABORATORY [facility] - Department of Dermatology [address], [address] [phone]
--- OUTSIDE RECORDS SUMMARY | 2024-04-10 14:44 | XMS_ITS | Encounter Summary ---
Author Organization [facility] Address [facility] [place] [address] Care Team Providers Care Child Development Director Name Role Phone Magdy Alexander MD Primary Care Provider [phone] Lukasz Bell MD Unavailable [phone] Encounter Details Date Type Department Care Team (Late st Contact Info) Description 06/28/2020 Prep for Procedure [facility] [address] [place], [place] [id number] Arnulfo Almodovar MD [address] [facility] [address] [place] [phone] Social History Tobacco Use Types Packs/Day Years Used Date Smoking Tobacco: Every Day Cigarettes 1 40 Alcohol Use Standard Drinks/Week Comments Yes 0 (1 standard drink = 0.6 oz pur e alcohol) social drinker Comments Unknown Sex and Gender Information Value Date Recorded Sex Assigned at Female 04/07/2024 12:11 PM SOLUTION STRATEGIST Legal Sex Female 11:12 AM CDT Gender Identity Not on file Sexual Orientation Not on file documented as of this encounter Plan of Treatment Upcoming Encounters Date Type Department Care Team (Late st Contact Info) Description 05/11/2024 12:00 PM CDT Appointment [facility] [place] [address] Clarence Rdz MD [address] [facility] [place] [address] 05/11/2024 1:30 PM CDT Office Visit [facility] [place] [address] Clarence Rdz MD [address] [facility] [address] [place] [address] 07/17/2024 12:00 PM CDT Office Visit [facility] [address] [place] [address] Clarence Rdz MD [address] [facility] [place] [address] 08/14/2024 2:20 PM CDT Office Visit [facility] [address] [facility], [address] [place] [address] Lukasz Bell MD [address] [facility] [place] [address] 02/05/2025 10:00 AM SOLUTION STRATEGIST Appointment [facility] [address] [facility] [place] [address] Reyes Villagomez MD [address] [facility] [place] [address] 02/05/2025 11:00 AM SOLUTION STRATEGIST Appointment [facility] [address] [facility] [place] [address] Reyes Villagomez MD [address] [facility] [place] [address] documented as of this encounter Results * PRE-SURGICAL/PRE-PROCEDURE CORONAVIRUS (COVID 19) (07/05/2020 2:35 PM CDT) CORONAVIRUS SARS COV 2 PCR (RESP) NOT DETECTED NOT DETECTED 07/07/2020 10:16 PM CDT [facility] Comment: A Not Detected (negative) test result for this test means that SARS- CoV-2 RNA was not present in the specimen above the limit of detection. A negative result does not rule out the possibility of COVID-19 and should not be used as the sole basis for treatment or patient management decisions. If COVID-19 is still suspected, based on exposure history together with other clinical findings, re-testing should be considered in consultation with public health authorities. Laboratory test results should always be considered in the context of clinical observations and epidemiological data in making a final diagnosis and patient management decisions. Please review the Fact Sheets and FDA authorized labeling available for health care providers and patients using the following websites: https://www.[employer].com/home/Covid-19/HCP/[facility]/fact- sheet.html https://www.[employer]/home/Covid-19/Patients/ Quest[employer]/fact-sheet.html This test has been authorized by the FDA under an Emergency Use Authorization (EUA) for use by authorized laboratories. Due to the current public health emergency, [facility] is receiving a high volume of samples from a wide variety of swabs and media for COVID-19 testing. In order to serve patients during this public health crisis, samples from appropriate clinical sources are being tested. Negative test results derived from specimens received in non-commercially manufactured viral collection and transport media, or in media and sample collection kits not yet authorized by FDA for COVID-19 testing should be cautiously evaluated and the patient potentially subjected to extra precautions such as additional clinical monitoring, including collection of an additional specimen. Methodology: Nucleic Acid Amplification Test (NAAT) includes RT-PCR or TMA Additional information about COVID-19 can be found at the [facility] website: www.[employer]/Covid19. Test performed at [facility] [address] [place] [address] Director: KERLINE GARCIA DO,MPH FIRST TEST UNKNOWN 07/05/2020 2:28 PM CDT [facility] EMPLOYED IN HEALTHCARE UNKNOWN 07/05/2020 2:28 PM CDT [facility] SYMPTOMATIC DEFINED BY CDC NO 07/05/2020 2:28 PM CDT [facility] DATE OF SYMPTOM ONSET UNKNOWN 07/05/2020 2:58 PM CDT [facility] HOSPITALIZATION STATUS NO 07/05/2020 2:28 PM CDT [facility] PATIENT IN ICU NO 07/05/2020 2:28 PM CDT [facility] RESIDENT OF [facility] UNKNOWN 07/05/2020 2:28 PM CDT [facility] UNKNOWN 07/05/2020 2:58 PM CDT [facility] PATIENT'S RACE WHITE OR 07/05/2020 2:28 PM CDT [facility] ETHNICITY NONHISPANIC 07/05/2020 2:28 PM CDT [facility] SOURCE (QST) NASOPHARYNGEAL SWAB 07/05/2020 2:28 PM CDT [facility] NASOPHARYNGEAL SWAB / Unknown 07/05/2020 2:35 PM CDT us Arnulfo Almodovar MD MICROBIOLOGY - GENERAL ORDERAB LES Final Result [facility] [address] [place] [address], [facility] [address] [place] [address], [place] documented in this encounter Visit Diagnoses Diagnosis Preop testing- Primary Preoperative examination, unspecified documented in this encounter Additional Health Concerns Infection Onset Date Last Indicated Resolved Time COVID-19 Rule Out 07/05/2020 07/05/2020 07/07/2020 10:16 PM CDT MRSA Comment:10/11/23 +MRSA Left maxillary sinus 10/11/2023 10/11/2023 documented as of this encounter Care Teams Child Development Director Relationship Specialty Start Date End Date Magdy Alexander MD [address] [place] [address] PCP - General FAMILY PRACTICE 07/05/20 Lukasz Bell MD [address] [place] [address] Physician NEUROMUSCULOSKELETAL MEDICINE 10/28/23 documented as of this encounter
--- OUTSIDE RECORDS SUMMARY | 2024-04-10 14:44 | XMS_ITS | Clinical Summary ---
Author Organization [facility] Fito Holman Address [address] [place] [address] Care Team Providers Care Memory Care Program Director Name Role Phone Magdy Alexander MD Primary Care Provider [phone] Allergies Active Allergy Reactions Criticality Noted Date Comments Hydromorphone Hives,Nausea and Vomiting High 023 Terbinafine Hives High 01/06/2023 Medications nitroglycerin (NITROSTAT) 0.4 mg Tablet, Sublingual Place 0.4 mg under tongue every 5 minutes as needed. Active rOPINIRole (REQUIP) 1 mg tablet Take 1 mg by mouth daily at bedtime. Active gabapentin (NEURONTIN) 300 mg capsule Take 600 mg by mouth 2 times daily. Active HYDROcodone-aceta minophen (NORCO) 5-325 mg tablet Take 1-2 Tablets by mouth every 6 hours as needed for Pain (pain). Active lisinopriL (PRINIVIL) 40 mg tablet Take 40 mg by mouth daily. Active loperamide (IMODIUM) 2 mg capsule Take 2 mg by mouth 4 times daily as needed for Diarrhea/Loose Stools. Active omeprazole (PriLOSEC) 40 mg Capsule, Delayed Release(E.C.) Take 40 mg by mouth daily. 2 Active rosuvastatin (CRESTOR) 40 mg tablet Take 40 mg by mouth daily. 3 Active triamcinolone acetonide (KENALOG) 0.5 % Cream Apply to affected area 3 times daily as needed for Other (See Comment). Active calcium carbonate-vitamin D3 (CALTRATE 600 + D) 600 mg-20 mcg (800 unit) Tablet Take 1 Tablet by mouth daily. 2 Active cyclobenzaprine (FLEXERIL) 10 mg tablet Take 10 mg by mouth every 6 months. 3 Active diclofenac sodium (VOLTAREN) 1 % gel Apply 4 Grams to affected area 3 times daily as needed for Pain. Active escitalopram oxalate (LEXAPRO) 10 mg tablet Take 10 mg by mouth daily. Active rivaroxaban (Xarelto) 2.5 mg Tablet Take 2.5 mg by mouth 2 times daily. Active cyanocobalamin 1,000 mcg Tablet Take 1,000 mcg by mouth daily. Active fexofenadine (JAS) 60 mg tablet Take 60 mg by mouth 2 times daily. Active aspirin (JU[place]IEGO CHEWABLE) 81 mg Tablet, Chewable Take 81 mg by mouth daily. Active albuterol sulfate 90 mcg/actuation metered powder inhaler Take 2 Puffs by inhalation every 4 hours as needed for Shortness of Breath. Active Breztri Aerosphere 160 mcg-9mcg-4.8mcg/a ctuation HFA aerosol inhaler Take 2 Puffs by inhalation 2 times daily. 3 Active amitriptyline (ELAVIL) 25 mg tablet Take 25 mg by mouth daily at bedtime. 4 Active Budesonide 1 mg/2 mL Suspension for Nebulization Take 1 mg by inhalation 2 times daily. 4 Active Active Problems No known active problems Encounters Date Type Department Care Team Description 04/10/2024 Telephone [facility] Oncology and Hematology [facility] [address] [place] [address] Reese Sexton MD labs for appointment 03/22/2024 External Device Data STL ABSTRACTION Provider, Abstract 03/21/2024 External Device Data [facility] ABSTRACTION Provider, Abstract 03/14/2024 External Device Data [facility] ABSTRACTION Provider, Abstract 03/07/2024 External Device Data ST[facility] ABSTRACTION Provider, Abstract from Last 3 Months Family History Medical History Relation Name Comments Cerebral palsy Brother Seizure Disorder Brother Dementia Father Heart Failure Father Lung Cancer Mother Stroke Mother ADD Son Anxiety Son Autism spectrum disorder Son Relation Name Status Comments Brother Alive Father Mother Son Alive Social History Tobacco Use Types Packs/Day Years Used Date Smoking Tobacco: Every Day Cigarettes 1 25 Smokeless Tobacco: Never Tobacco Cessation:Ready to Q uit: Not Asked; Counseling Given: Not Answered Alcohol Use Standard Drinks/Week Comments Not Currently 0 (1 standard drink = 0.6 oz pur e alcohol) Comments Unknown Sex and Gender Information Value Date Recorded Sex Assigned at Not on file Legal Sex Female 12:25 PM CDT Gender Identity Not on file Sexual Orientation Not on file Last Filed Vital Signs Vital Sign Reading Time Taken Comments Blood Pressure 163/74 12/10/2023 11:52 AM CDT Pulse 73 12/10/2023 11:46 AM CDT Temperature 36.4 C (97.5 F) 12/10/2023 11:46 AM CDT Respiratory Rate 16 12/10/2023 11:46 AM CDT Oxygen Saturation 93% 12/10/2023 11:46 AM CDT Inhaled Oxygen Concentration - - Weight 93 kg (205 lb) 12/10/2023 11:46 AM CDT Height 162.6 cm (5' 4 ) 01/06/2023 2:59 PM PATTERNMAKER METAL BENCH Body Mass Index 35.19 01/06/2023 2:59 PM PATTERNMAKER METAL BENCH Plan of Treatment Upcoming Encounters Date Type Department Care Team (Late st Contact Info) Description 04/12/2024 2:30 PM PATTERNMAKER METAL BENCH Office Visit [facility] Oncology and Hematology [facility] [address] [facility] [address] [place] [address] Reese Sexton MD [address] [facility] [address] [place] [address] Health Maintenance Due Date Last Done Comments Pre-Diabetes and Diabetes Screening 1962 DTAP/TDAP/TD VACCINES (1 - Tdap) 1981 CERVICAL CANCER SCREENING 1992 BREAST CANCER SCREENING 2002 COLORECTAL SCREENING 09/02/2007 Colorectal Cancer Screening 09/02/2007 FIT-DNA Q 3 years 09/02/2007 FIT/FOBT Q 1 year 09/02/2007 Flex Sig/CT Colonography Q 5 years 09/02/2007 Lung Cancer Screening 2012 ZOSTER VACCINE (1 of 2) 2012 INFLUENZA VACCINE (#1) 2023 3, 12/14/2019, 12/30/2018, Additional history exists Medicare Ad[place] ([place]) Preventative Visit/Annual Wellness Visit 03/01/2024 RSV VACCINE (60+ or ) (1 - 1-dose 75+ series) 2037 Insurance [facility] [id number] MEDICAID [place] Care Teams Memory Care Program Director Relationship Specialty Start Date End Date Magdy Alexander MD [address] [place] [phone] PCP - General Family Practice 01/06/23
--- OUTSIDE RECORDS SUMMARY | 2024-04-10 14:44 | XMS_ITS | Clinical Summary ---
Author Organization [facility] Address [address] [place] [address] Care Team Providers Care Dentures Lab Technician Name Role Phone Unavailable Primary Care Provider Unavailabl e Source Comments [facility],non-owned Affiliates and Associated Physician Practices is amultiple site organization consisting of ambulatory clinics and hospital sitesin [place], [place], [place] and [place]. This disclosure is being madepursuant to the Care Everywhere program and may not contain all information available regarding this patient. Last updated 17.[facility] [employer] Social History Tobacco Use Types Packs/Day Years Used Date Smoking Tobacco: Never Assessed Sex and Gender Information Value Date Recorded Sex Assigned at Not on file Gender Identity Not on file Sexual Orientation Not on file Plan of Treatment Health Maintenance Due Date Last Done Comments COLOGUARD (AGES 45-75) - COL ON CA SCREENING 1962 COLON MONITORING 1962 COLONOSCOPY - COLON CA SCREENING 1962 CT COLONOGRAPHY - COLON CA SCREENING 1962 Colorectal Cancer Screening 1962 FIT - COLON CA SCREENING 1962 FLEX SIG - COLON CA SCREENING 1962 LIPID TESTING 1962 MAMMOGRAM 1962 PAP SMEAR 1962 HIV SCREENING 1977 HEPATITIS C SCREENING 08/27/1980 DTAP/TDAP/TD VACCINES (1 - Tdap) 1981 PNEUMOCOCCAL VACCINE 50+ (1 of 1 - PCV) 2012 ZOSTER VACCINE (1 of 2) 2012 COVID-19 VACCINE ( - 2023-2 5 season) 2023 INFLUENZA VACCINE (#1) 2023 DEPRESSION SCREENING 03/01/2024 MEDICARE AWV CALENDAR YEAR 2024 Respiratory Syncytial Virus (RSV) Vaccine Pt: or over 60 yrs (1 - 1-dose 75+ series) 2037 HEPATITIS B VACCINE Aged Out No longe r eligible based on patient's age to complete this topic HIB VACCINE Aged Out No longer eligi ble based on patient's age to complete this topic HPV VACCINE Aged Out No longer eligi ble based on patient's age to complete this topic MENINGOCOCCAL (Group B) VACCINE Aged Out No longer eligible based on patient's age to complete this topic MENINGOCOCCAL VACCINE Aged Out No bennett minal eligible based on patient's age to complete this topic PNEUMOCOCCAL VACCINE Aged Out No long er eligible based on patient's age to complete this topic
--- OUTSIDE RECORDS SUMMARY | 2024-04-10 14:44 | XMS_ITS | Encounter Summary ---
Author Organization 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) Social History Tobacco Use Types Packs/Day Years Used Date Smoking Tobacco: Never Assessed Sex and Gender Information Value Date Recorded Sex Assigned at Not on file Gender Identity Not on file Sexual Orientation Not on file documented as of this encounter Plan of Treatment Not on file documented as of this encounter Procedures Procedure Name Priority Date/Time Associated Diagnosis Comments DERMATOPATHOLOGY Routine 02/04/2023 3:33 AM DOUBLER HELPER Malignant melanoma of other part of trunk (CMS/HCC) documented in this encounter Results * DERMATOPATHOLOGY (02/04/2023 3:33 AM DOUBLER HELPER) Case Report Dermatopathology Report Case: [id number] Authorizing Provider: Jose Toussaint MD Collected: 02/04/2023 03:33 AM Ordering Location: [facility] DermPath Lab Received: 02/05/2023 12:19 PM Pathologist: Chelsey Alaniz MD Specimen: Skin, left superior medial mid back 3 11:35 AM DOUBLER HELPER DERMATOPATHOLOGY LABORATORY Final Diagnosis Specimen A. SKIN, left superior medial mid back: DERMAL SCAR RESIDUAL MELANOMA NOT IDENTIFIED (L90.5) 3 11:35 AM [facility] DERMATOPATHOLOGY LABORATORY Clinical History Melanoma 3 11:35 AM [facility] DERMATOPATHOLOGY LABORATORY Gross Description Specimen A: Received is one formalin filled container labeled with the patient's name and designated left superior medial mid back. The specimen consists of a non-oriented ellipse of skin measuring [id number] mm. Medially divided due to size inked red. Also, there a lesion measuring 13x9 mm. The margin is inked green. The 12 o'clock and 6 o'clock tips are submitted in cassette 1. The remainder of the ellipse is serially sectioned and submitted in cassette 2 - 12 clock face. Jar 0. 3 11:35 AM [facility] DERMATOPATHOLOGY LABORATORY Microscopic Description Specimen A. SKIN, left superior medial mid back: There are fibroblasts and collagen bundles oriented parallel to the skin surface. There are elongated blood vessels, some of which are oriented perpendicular to the skin surface. No residual melanoma is identified. 3 11:35 AM [facility] DERMATOPATHOLOGY LABORATORY Disclaimer An external and internal positive and negative controls are appropriate for the histochemical, immunohistochemical and immunofluorescence stain(s) in this case (if any), except where stated explicitly. The performance characteristics of the stain(s) cited in this report were developed and its performance characteristic determined by the Dermatopathology Laboratory at [facility], directed by Dr. Yann Blunt. These tests need not be, and therefore are not, approved by the [place] Food and Drug Administration. The tests are used for clinical purposes. 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
--- OUTSIDE RECORDS SUMMARY | 2024-04-10 14:44 | XMS_ITS | Clinical Summary ---
Author Organization [facility] Address [address] [place] [phone] Care Team Providers Care Skin Lifter Bacon Name Role Phone Magdy Alexander MD Primary Care Provider + [phone] Allergies Active Allergy Reactions Criticality Noted Date [...] mg total) by mouth daily 30 tablet 09/27/19 24 025 Active spironolactone (ALDACTONE) 25 mg tablet Take 1 tablet (25 mg total) by mouth daily 30 tablet 09/27/19 24 025 Active rosuvastatin (CRESTOR) 40 [...] hyperlipidemia 01/17/2021 Coronary artery disease invo lving little shell tribe coronary artery of [place] heart without angina pectoris 05/27/2020 HTN (hypertension), benign 05/27/2020 S/P coronary artery stent placement 05/27/2020 Tobacco abuse 05/27/2020 Mass of breast 07/17/2010 Resolved Problems Problem Noted Date Diagnosed Date Resolved Date Numbness and tingling of both feet 08/20/2022 08/20/2022 Back pain with right-sided sciatica 08/20/2022 08/20/2022 Dyslipidemia 05/27/2020 01/17/2021 Preoperative cardiovascular examination 05/27/2020 04/08/2021 Encounters Date Type Department Care Team Description 01/20/2024 Telephone [facility] Scheduling [address] [phone] [place]orie[place]ristoozrich from Last 3 Months Immunizations Name Administration Dates Next Due Influenza, Quadrivalent, Laila l Culture-based MDCK, Preservative Free, Antibiotic Free, Intramuscular 02/06/2021,12/14/2019,12/30/2018,12/31,01/06/2017 Influenza, Quadrivalent, Spl it, Preservative Free, Intramuscular 01/22/2016 Influenza, Trivalent, IM (MDV) 12/30/2012 Surgical History Surgery Date Site/Laterality Comments CORONARY ANGIOPLASTY 03/01/2002 - 02/28/2003 SECTION CYST REMOVAL CHOLECYSTECTOMY 03/01/1983 - 02/29/1984 ECTOPIC SURGERY CARDIAC CATHETERIZATION COMBINED LAMINECTOMY AND MICRODISECTOMY OF THORACIC / LUMBAR SPINE SPINAL FUSION BLADDER SUSPENSION GANGLION CYST EXCISION 03/01/1980 - 02/28/1981 Left TUBAL LIGATION HYSTERECTOMY 03/01/1999 - 02/29/2000 CARDIAC CATHETERIZATION 03/01/2007 - 02/29/2008 CATARACT EXTRACTION Bilateral Lens in right eye SINUS SURGERY 01/29/2021 - 02/28/2021 CARDIAC CATHETERIZATION 01/29/2021 - 02/28/2021 Medical History Medical History Date Comments Thyroid disease Hypertension Heart attack (HCC) 2002 Hyperlipidemia Acid indigestion Pneumonia Sleep apnea Claudication (HCC) PVD (peripheral vascular disease) (HCC) Depression Anxiety Cardiovascular disease Goiter PONV (postoperative nausea and vomiting) Motion sickness GERD (gastroesophageal reflux disease) Irritable bowel syndrome Incontinent of feces Incontinence of feces with fecal urgency History of anemia Coronary artery disease Pulmonary hypertension (HCC) mil d Prediabetes Anemia Ectopic Family History Medical History Relation Name Comments Cerebral palsy Brother Alzheimer's disease Father Coronary artery disease Father Cameron nary Artery Bypass Graft; Heart failure Maternal Grandfather Conges tive Heart Failure; Hypertension Mother Hypertension; Lung cancer Mother Coronary artery disease Paternal Grandfather Coronary Artery Bypass Graft; Other Paternal Grandfather Pacemak er; Heart attack Paternal Grandmother Myocard ial Infarction; Relation Name Status Comments Brother Alive Father (Age 83) Maternal Grandfather Alive Mother (Age 59) Paternal Grandfather Alive Paternal Grandmother Alive Social History Tobacco Use Types Packs/Day [...] on file Legal Sex 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 Gender Identity Not on file Sexual Orientation Not on file Obstetrics History Last Filed Vital Signs Vital Sign Reading [...] 06/16/2023 3:47 PM CDT Plan of Treatment Health Maintenance Due Date Last Done Comments Breast Cancer Screening-Mammogram 1962 Colon Cancer Screening-Colonoscopy 1962 Depression Screening 1962 Hepatitis C Screening 1962 Pneumococcal vaccine <65 (1 of 2 - PCV) 1968 DTaP/Tdap/Td Vaccine (1 - Tdap) 1973 Hepatitis B Screening 1980 Regular Well Visit/Exam 18-64 1980 Zoster Vaccine (2 of 3) 11/26/2015 10/01/19 16, 09/10/2015, 08/27/2015, Additional history exists Covid-19 Vaccine (3 - 2023-2 5 season) 2023 06/03/2020, 05/12/2020 Influenza Vaccine (#1) 2023 , 12/14/2019, 12/30/2018, Additional history exists Medical Devices Implanted Type Area Grid Casting Machine Operator Helper Device Identifier Shelf Expiration Date Model / Serial / Lot Bard Peripheral Vascular Lifestream 8mm 37mm 80cm Balloon Expandable Low Profile Cover [id number] - [id number] Implanted:Qty: 1 on 07/03/2021 by Jose Bailey MD at [facility] Stent Right: Iliac Bard Peripheral Vascular 10/30/2023 [id number] / / [id number] Bard Peripheral Vascular Lifestream 7mm 37mm 80cm Balloon Expandable Low Profile Cover [id number] - [id number] Implanted:Qty: 1 on 11/27/2021 by Jose Bailey MD at [facility] Bard Peripheral Vascular 04/29/2023 [id number] / / [id number] [employer] Mynx Control 6-7fr 2 Mode Balloon Catheter Sealant Lock Syringe [id number] - [id number] Implanted:Qty: 1 on 11/27/2021 by Jose Bailey MD at [facility] [employer] 08/29/2023 [id number] / / [id number] Insurance MEDICARE SOLUTIONS [employer] MEDICARE SOLUTIONS [facility] MEDIC[facility] Address: [address] [address] [place] [address] IDPA MEDICARE SOLUTIONS [facility] MEDICARE Address: [address] [address] [place] [address] IDPA Care Teams Skin Lifter Bacon Relationship Specialty Start Date End Date Magdy Alexander MD PCP - General 02/17/11
[2024-04-10 14:47] LABS: Hemoglobin 13.2 g/dL (12.0-15.0); Mean Corpuscular Hemoglobin 26.5 pg (26-34); Mean Corpuscular Volume 88.4 fl (80-100); Mean Platelet Volume 12.4 fl (7.4-10.4); Platelet Count Result 126 k/mm3 (150-375); Red Blood Count 4.98 M/mm3 (4.2-5.4); Red Cell Distribution Width 14.4 % (11.5-14.5)
[2024-04-10 17:04] LABS: Alanine Aminotransferase 17 U/L (6-35); Albumin Level 3.9 g/dL (3.5-5.1); Alkaline Phosphatase 70 U/L (38-126); Anion Gap 11 mmol/L (4-12); Aspartate Amino Transferase 43 U/L (14-36); Bilirubin,Total 0.6 mg/dL (0.2-1.3); Blood Urea Nitrogen 12 mg/dL (7-17); Calcium 9.2 mg/dL (8.4-10.2); Carbon Dioxide 26 mmol/L (22-30); Chloride 103 mmol/L (98-107); Estimated Glomerular Filt Rate > 60; Glucose 159 mg/dL (65-110); Potassium 4.2 mmol/L (3.4-5.0); Sodium 140 mmol/L (137-145)
[2024-04-10 17:21] LABS: Iron 58 ug/dL (37-170); Percent Iron Saturation 13 % (20-50)
[2024-04-10 17:44] LABS: Ferritin 7.29 ng/mL (11.1-264)
== END 2024-04-10 14:29 | disposition home or self-care (01) ==
PROVIDERS: PCP Family Medicine; Visit Provider Internal Medicine Hematology & Oncology
DX: D64.9 Anemia, unspecified (principal)
CPT/HCPCS: 36415; 80053; 82728; 83540; 83550; 85027

== ENCOUNTER 2024-09-18 14:27 | Outpatient (CLI) | payer MEDICARE, MEDICAID, SELFPAY ==
--- NOTE | ~2024-09-18 | CT_ITS ---
EXAMINATION: CT lung screening DATE: 09/18/2024 14:50 INDICATION: Personal history of nicotine dependence TECHNIQUE: Computed tomography (CT) of the chest was performed without intravenous contrast. The dose -length product was 148.45 mGy-cm. Automated exposure control and iterative reconstruction technique were employed. COMPARISON: CT dated 03/31/2023 FINDINGS: Calcified granuloma right lower lobe. No endobronchial lesions. Stable 5 mm right lower lob e nodule. Scattered additional smaller nodules are present measuring 3 mm or less without significant change. No pneumothorax. No new pulmonary nodules or masses. No thoracic lymphadenopathy. IMPRESSION: 1. Lung-RADS category 2: Benign appearance or behavior. Continue annual screening with noncontrast lo w-dose chest CT in 12 months. Reviewed, dictated and finalized at location A. IMPRESSION: 1. Lung-RADS category 2: Benign appearance or behavior. Continue annual screeni ng with noncontrast low-dose chest CT in 12 months.
--- OUTSIDE RECORDS SUMMARY | 2024-09-18 14:30 | XMS_ITS | Clinical Summary ---
Author Organization [facility] Address [address] [place] [address] Care Team Providers Care Furniture Salesperson Name Role Phone Magdy Alexander MD Primary Care Provider [phone] Allergies Active Allergy Reactions Criticality Noted Date [...] Encounters Date Type Department Care Team Description 08/22/2024 External Device Data STL ABSTRACTION Provider, Abstract 08/22/2024 Orders Only [facility] - Jesus Manuel [address] [place] [address] Reese Sexton MD 08/21/2024 Orders Only [facility] - Jesus Manuel [address] [place] [address] Reese Sexton MD 07/25/2024 External Device Data STL ABSTRACTION Provider, Abstract 07/19/2024 External Device Data STL ABSTRACTION Provider, Abstract 07/18/2024 External Device Data STL ABSTRACTION Provider, Abstract [...] 11:46 AM CDT Height 162.6 cm (5' 4) 01/06/2023 2:59 PM FUR BLENDER Body Mass Index 35.19 01/06/2023 2:59 PM FUR BLENDER Plan of Treatment Health Maintenance Due Date Last Done Comments Pre-Diabetes and Diabetes Screening 1962 DTAP/TDAP/TD VACCINES (1 - Tdap) 1981 BREAST CANCER SCREENING 2002 COLORECTAL SCREENING 09/02/2007 Colorectal Cancer Screening 09/02/2007 FIT-DNA Q 3 years 09/02/2007 FIT/FOBT Q 1 year 09/02/2007 Flex Sig/CT Colonography Q 5 years 09/02/2007 Lung Cancer Screening 2012 ZOSTER VACCINE (1 of 2) 2012 INFLUENZA VACCINE (#1) 2024 3, 12/14/2019, 12/30/2018, Additional history exists RSV VACCINE (60+ or ) (1 - 1-dose 75+ series) 2037 Procedures Procedure Name Priority Date/Time Associated Diagnosis Comments IRON LEVEL Routine 08/15/2024 4:40 PM CDT CBC WITH DIFFERENTIAL Routine 08/15/2024 4:28 PM CDT from Last 3 Months Results * IRON LEVEL (08/15/2024 4:40 PM CDT) Blood Reese Sexton MD CHEMISTRY ORDERABLES Final Resu lt * CBC WITH DIFFERENTIAL (08/15/2024 4:28 PM CDT) Blood Reese Sexton MD HEMATOLOGY ORDERABLES Final Res ult from Last 3 Months Insurance [facility] [id number] MEDICAID [place] Care Teams Furniture Salesperson Relationship Specialty Start Date End Date Magdy Alexander MD [address] [place] [address] PCP - General Family Practice 01/06/23
--- OUTSIDE RECORDS SUMMARY | 2024-09-18 14:30 | XMS_ITS | Clinical Summary ---
Author Organization [facility] Address [address] [place] [address] Care Team Providers Care Popcorn Attendant Name Role Phone Unavailable Primary Care Provider Unavailabl e Source Comments [facility],non-owned Affiliates and Associated Physician Practices is amultiple site organization consisting of ambulatory clinics and hospital sitesin [place], [place], [place] and [place]. This disclosure is being madepursuant to the Care Everywhere program and may not contain all information available regarding this patient. 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 Gender Identity Not on file Sexual Orientation [...] SCREENING 1962 LIPID TESTING 1962 MAMMOGRAM 1962 HIV SCREENING 1977 HEPATITIS C SCREENING 08/27/1980 DTAP/TDAP/TD VACCINES (1 - Tdap) 1981 PAP SMEAR 09/02/1983 PNEUMOCOCCAL VACCINE 50+ (1 of 1 - PCV) 2012 ZOSTER VACCINE (1 of 2) 2012 COVID-19 VACCINE (1 - 2023-2 5 season) 2023 DEPRESSION SCREENING 03/01/2024 MEDICARE AWV CALENDAR YEAR 2024 INFLUENZA VACCINE (#1) 2024 Respiratory Syncytial Virus (RSV) Vaccine Pt: [...] to complete this topic MENINGOCOCCAL (Group B) VACC INE SHARED DECISION-MAKING Aged Out No longer eligibl e based on patient's age to complete this topic MENINGOCOCCAL GROUPS A/C/Y/W VACCINE Aged Out No longer eligible b ased on patient's age to complete this topic Insurance MANAGED MEDICARE [place] [id number] [place] [id number]
--- OUTSIDE RECORDS SUMMARY | 2024-09-18 14:30 | XMS_ITS | Referral Summary ---
Author Organization [facility] Address [address] [place] [phone] Care Team Providers Care Consultant Dietitian Name Role Phone Magdy Alexander MD Primary Care Provider + [phone] Allergies Active Allergy Reactions Criticality Noted Date Comments Hydromorphone Nausea only,Vomiting Low Reaction: NAUSEA, VOMITING, , , Terbinafine Hives Medium 07/01/2021 Pollen Extracts Other (See comments) Reaction: OTHER REACTION, Medications nitroglycerin (NITROSTAT) 0.[address] 1 tablet (0.4mg) under the tongue as needed for chest pain 25 1 200 9 Active HYDROcodone-jose carlos taminophen (NORCO) 5-325 mg per tabletIndicatio ns:Pain Take 1-2 tablets by mouth every 6 [...] 3 (three) times a day Active lisinopriL (PRINIVIL,ZESTR IL) 40 mg tablet Take 1 tablet (40 [...] capsule (40 mg total) by mouth daily 2 Active calcium carbonate-vitam in D3 1,500 mg (600mg elemental) -800 unit per tablet Take 1 tablet by mouth daily 2 Active denosumab (PROLIA) 60 mg/mL syringe Inject 1 mL (60 mg total) under the skin every 6 (six) months Active cyanocobalamin (Vitamin B-12) 1,000 mcg tabletIndicatio ns:Prevention of Vitamin B12 Deficiency Take 1 tablet (1,000 mcg total) by mouth daily Active fluticasone propionate (FLONASE) 50 mcg/actuation nasal spray Administer 2 sprays into each nostril 2 (two) times a day 2 Active Breztri Aerosphere 160-9-4.8 mcg/actuation HFA aerosol inhaler Inhale 2 puffs 2 (two) times a day 3 Active cyclobenzaprine (FLEXERIL) 10 mg tablet Take 1 tablet (10 mg total) by mouth 3 (three) times a day as needed for muscle spasms 3 Active aspirin 81 mg enteric coated tablet Take 1 tablet (81 mg total) by mouth daily 90 tablet 6 3 Active albuterol (PROAIR RESPICLICK) 90 mcg/actuation inhaler Inhale 2 puffs every 6 (six) hours as needed for wheezing Active fexofenadine HCl (JAS ORAL) Take by mouth Active ascorbic acid (ascorbic acid with giovanna hips) 500 mg tablet,chewable Acti ve amLODIPine (NORVASC) 10 mg tablet Take 1 tablet (10 mg total) by mouth daily 30 tablet 4 09/27/19 25 Active spironolactone (ALDACTONE) 25 mg tablet Take 1 tablet (25 mg total) by mouth daily 30 tablet 4 09/27/19 25 Active rosuvastatin (CRESTOR) 40 mg tablet TAKE 1 TABLET(40 MG) BY MOUTH DAILY 90 tablet 5 Active rivaroxaban (Xarelto) 2.5 mg tablet Take 1 tablet (2.5 mg total) by mouth 2 (two) times a day 180 tablet 3 5 Active Active Problems Problem Noted Date Diagnosed Date Neuropathic pain, leg, bilateral 08/20/2022 Muscle cramps 02/19/2022 Medication side effects 02/19/2022 Pulmonary HTN 10/17/2021 GRANT on CPAP 10/17/2021 Morbid (severe) obesity due to excess calories 0 08/06/2021 Claudication in peripheral vascular disease 09/2021 Subclavian artery stenosis, left 04/08/2021 Mixed hyperlipidemia 01/17/2021 Coronary artery disease invo lving [place] coronary artery of [place] heart without angina pectoris 05/27/2020 HTN (hypertension), benign 05/27/2020 S/P coronary artery stent placement 05/27/2020 Tobacco abuse 05/27/2020 Mass of breast 07/17/2010 Resolved Problems Problem Noted Date Diagnosed Date Resolved Date Numbness and tingling of both feet 08/20/2022 08/20/2022 Back pain with right-sided sciatica 08/20/2022 08/20/2022 Dyslipidemia 05/27/2020 01/17/2021 Preoperative cardiovascular examination 05/27/2020 04/08/2021 Immunizations Immunization Administration Dates Next Due Influenza, Quadrivalent, Laila [...] on file 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 Gender Identity Not on file Sexual Orientation [...] P M CDT Height 165.1 cm (5' 5) 06/16/2023 3:47 PM CDT Body Mass Index 34.05 06/16/2023 3:47 PM CDT Plan of Treatment Not on file Medical Devices Implanted Type Area Clay Puddler Device Identifier Shelf Expiration Date Model / Serial / Lot Bard Peripheral Vascular Lifestream 8mm 37mm 80cm Balloon Expandable Low Profile Cover [id number] - [id number] Implanted:Qty: 1 on 07/03/2021 by Jose Bailey MD at [facility] Stent Right: Iliac Bard Peripheral Vascular 10/30/2023 [id number] / / [id number] Bard Peripheral Vascular Lifestream 7mm 37mm 80cm Balloon Expandable Low Profile Cover [id number] - [id number] Implanted:Qty: 1 on 11/27/2021 by Jose Bailey MD at [facility] Bard Peripheral Vascular 04/29/2023 [id number] / / [id number] [employer] Inc Mynx Control 6-7fr 2 Mode Balloon Catheter Sealant Lock Syringe [id number] - [id number] Implanted:Qty: 1 on 11/27/2021 by Jose Bailey MD at [facility] [employer] 08/29/2023 [id number] / / [id number] Insurance [facility] MEDICARE ADVANTAGE IDPA [facility] MEDICARE ADVANTAGE IDPA [facility]IC[facility] Address: [address] [address] [place] [address] IDPA Care Teams Consultant Dietitian Relationship Specialty Start Date End Date Magdy Alexander MD PCP - General 02/17/11
--- OUTSIDE RECORDS SUMMARY | 2024-09-18 14:30 | XMS_ITS | Encounter Summary ---
Author Organization [facility] Address [facility] [place] [address] Care Team Providers Care Linux Systems Engineer Name Role Phone Magdy Alexander MD Primary Care Provider [phone] Lukasz Bell MD Unavailable [phone] Encounter Details Date Type Department Care Team (Late st Contact Info) Description 06/21/2024 MyChart Message Enc [facility] [address] [place] [phone] Marlene Black, ANP-[facility]. [facility] [address] [place] [address] Test Results Social History Tobacco Use Types Packs/Day Years Used Date Smoking Tobacco: Every Day Cigarettes 1 45 Smokeless Tobacco: Never Alcohol Use Standard Drinks/Week Comments Not Currently 0 (1 standard drink = 0.6 oz pur e alcohol) Rarely PHQ-2 Answer Date Recorded Patient Health Questionnaire-2 Score 0 03/20/2024 Comments No Sex and Gender Information Value Date Recorded Sex Assigned at Female 04/07/2024 12:11 PM HAM ROLLING MACHINE OPERATOR Legal Sex Female 11:12 AM CDT Gender Identity Not on file Sexual Orientation Not on file documented as of this encounter Plan of Treatment Upcoming Encounters Date Type Department Care Team (Late st Contact Info) Description 01/29/2025 12:45 PM HAM ROLLING MACHINE OPERATOR Office Visit [facility] [address] [place], [place] [phone] Clarence Rdz MD [address] [place] [address] 02/05/2025 10:00 AM HAM ROLLING MACHINE OPERATOR Appointment [facility] [place] [address] Reyes Villagomez MD [facility] [address] [place] [address] 02/05/2025 11:00 AM HAM ROLLING MACHINE OPERATOR Appointment [facility] [address] Reyes Villagomez MD 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
--- OUTSIDE RECORDS SUMMARY | 2024-09-18 14:30 | XMS_ITS | Encounter Summary ---
Author Organization [facility] Address [address] [place] [address] Care Team Providers Care Leveler Helper Name Role Phone Unavailable Primary Care Provider Unavailabl e Encounter Details Date Type Department Care Team (Late st Contact Info) Description 02/04/2023 Lab Requisition [facility] Lab [address] [place] [phone] Jose Toussaint MD [facility] DERMATOLOGY [address] [place] [phone] Malignant melanoma of other part of trunk Social History Tobacco Use Types Packs/Day Years Used Date Smoking Tobacco: Never Assessed Comments Unknown Sex and Gender Information Value Date Recorded Sex Assigned at Not on file Legal Sex Female 6:27 AM CREDIT CARD CONTROL CLERK Gender Identity Not on file Sexual Orientation Not on file documented as of this encounter Plan of Treatment Not on file documented as of this encounter Procedures Procedure Name Priority Date/Time Associated Diagnosis Comments DERMATOPATHOLOGY Routine 02/04/2023 3:33 AM CREDIT CARD CONTROL CLERK Malignant melanoma of other part of trunk ([facility]) documented in this encounter Results * DERMATOPATHOLOGY (02/04/2023 3:33 AM CREDIT CARD CONTROL CLERK) Case Report Dermatopathology Report Case: [id number] Authorizing Provider: Jose Toussaint MD Collected: 02/04/2023 03:33 AM Ordering Location[facility] Received: 02/05/2023 12:19 PM Pathologist: Chelsey Alaniz MD Specimen: Skin, left superior medial mid back 11:35 AM CREDIT CARD CONTROL CLERK DERMATOPATHOLOGY LABORATORY Final Diagnosis Specimen A. SKIN, left superior medial mid back: DERMAL SCAR RESIDUAL MELANOMA NOT IDENTIFIED (L90.5) 3 11:35 AM [facility] D[facility]ORATORY at [address]5 CREDIT CARD CONTROL CLERK Clinical History Melanoma 3 11:35 AM [facility] D[facility] LAB[facility]ATORY Gross Description Specimen A: Received is one formalin filled container labeled with the patient's name and designated left superior medial mid back. The specimen consists of a non-oriented ellipse of skin measuring [id number] mm. Medially divided due to size inked red. Also, there a lesion measuring 13x9 mm. The margin is inked green. The 12 o'clock and 6 o'clock tips are submitted in cassette 1. The remainder of the ellipse is serially sectioned and submitted in cassette 2 - 12 clock face. Jar 0. 3 11:35 AM [facility] DER[facility] LABORATORY Microscopic Description Specimen A. SKIN, left superior medial mid back: There are fibroblasts and collagen bundles oriented parallel to the skin surface. There are elongated blood vessels, some of which are oriented perpendicular to the skin surface. No residual melanoma is identified. 3 11:35 AM [facility] DERMAT[facility] LABORATORY Disclaimer An external and internal positive and negative controls are appropriate for the histochemical, immunohistochemical and immunofluorescence stain(s) in this case (if any), except where stated explicitly. The performance characteristics of the stain(s) cited in this report were developed and its performance characteristic determined by the Dermatopathology Laboratory at [facility], directed by Dr. Yann Blunt. These tests need not be, and therefore are not, approved by the [place] Food and Drug Administration. The tests are used for clinical purposes. Billing Codes Specimen Charges Stain Charges 39686 1 3 11:35 AM [facility] DERMAT[facility] LABORATORY Embedded Images 3 11:35 AM [facility] DERMAT[facility] LABORATORY Pathology/Cytolo gy TISSUE SPECIMEN FROM SKIN / Unknown 02/04/2023 3:33 AM CREDIT CARD CONTROL CLERK 02/05/2023 12:19 PM CREDIT CARD CONTROL CLERK us Jose Toussaint MD LAB - PATHOLOGY/CYTOLOGY JIAE LINSEY Final Result DERMATOPATHOLOGY LABORATORY [facility] - Department of Dermatology [facility] [address] [facility]rd Floor [address] [phone] documented in this encounter Visit Diagnoses Diagnosis 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
--- OUTSIDE RECORDS SUMMARY | 2024-09-18 14:30 | XMS_ITS | Encounter Summary ---
Author Organization [facility] Address [facility] [place] [address] Care Team Providers Care Senior Office Support Assistant Sosa Name Role Phone Magdy Alexander MD Primary Care Provider [phone] Lukasz Bell MD Unavailable [phone] Encounter Details Date Type Department Care Team (Late st Contact Info) Description 06/28/2020 Prep for Procedure [facility] One Day [facility] [address] [place], [place] [phone] Arnulfo Almodovar MD [address] [facility] [address] [place] [address] Social History Tobacco Use Types Packs/Day Years Used Date Smoking Tobacco: Every Day Cigarettes 1 40 Alcohol Use Standard Drinks/Week Comments Yes 0 (1 standard drink = 0.6 oz pur e alcohol) social drinker Comments Unknown Sex and Gender Information Value Date Recorded Sex Assigned at Female 04/07/2024 12:11 PM BPO SPECIALIST Legal Sex Female 11:12 AM CDT Gender Identity Not on file Sexual Orientation Not on file documented as of this encounter Plan of Treatment Upcoming Encounters Date Type Department Care Team (Late Contact Info) Description 01/29/2025 12:45 PM BPO SPECIALIST Office Visit [facility] [address] [place] [address] Clarence Rdz MD [facility], [address] [place] [address] 02/05/2025 10:00 AM BPO SPECIALIST Appointment [facility] [place] [place] [address] Reyes Villagomez MD Three [facility]. [address] [place] [address] 02/05/2025 11:00 AM BPO SPECIALIST Appointment [facility] [place] [address] Reyes Villagomez MD Three [facility]. [facility] [address] [place] [address] 02/12/2025 2:00 PM BPO SPECIALIST Office Visit [facility]ispecialty Care - [facility] [address] [facility], [address] [place] [address] Lukasz Bell MD [address] [place] [address] documented as of this encounter Results * PRE-SURGICAL/PRE-PROCEDURE CORONAVIRUS (COVID 19) (07/05/2020 2:35 PM CDT) CORONAVIRUS SARS COV 2 PCR (RESP) NOT DETECTED NOT DETECTED 07/07/2020 10:16 PM CDT [facility] Comment: A Not Detected (negative) [...] providers and patients using the following websites: https://www.[employer].Gera-IT/home/Covid-19/HCP/QuestIVD/fact- sheet.html https://www.[employer].Gera-IT/home/Covid-19/Patients/ QuestIVD/fact-sheet.html This test has been authorized by the FDA under an Emergency Use Authorization (EUA) for use by authorized laboratories. Due to the current public health emergency, [facility] is receiving a high volume of samples [...] about COVID-19 can be found at the [facility] website: www.[employer].Gera-IT/Covid19. Test performed at [facility] [place] [address] [place] [address] Director: KERLINE GARCIA DO,MPH FIRST TEST UNKNOWN 07/05/2020 2:28 PM CDT [facility] EMPLOYED IN HEALTHCARE UNKNOWN 07/05/2020 2:28 PM CDT [facility] SYMPTOMATIC DEFINED BY CDC NO 07/05/2020 2:28 PM CDT [facility] DATE OF SYMPTOM ONSET UNKNOWN 07/05/2020 2:58 PM CDT [facility] HOSPITALIZATION STATUS NO 07/05/2020 2:28 PM CDT [facility] PATIENT IN ICU NO 07/05/2020 2:28 PM CDT [facility] RESIDENT OF [facility] UNKNOWN 07/05/2020 2:28 PM CDT [facility] UNKNOWN 07/05/2020 2:58 PM CDT [facility] PATIENT'S RACE WHITE OR 07/05/2020 2:28 PM CDT [facility] ETHNICITY NONHISPANIC 07/05/2020 2:28 PM CDT [facility] SOURCE (QST) NASOPHARYNGEAL SWAB 07/05/2020 2:28 PM CDT [facility] NASOPHARYNGEAL SWAB / Unknown 07/05/2020 2:35 PM CDT us Arnulfo Almodovar MD MICROBIOLOGY - GENERAL ORDERAB LES Final Result [facility] [address] [place] [address], [facility] [address] [place] [address], documented in this encounter Visit Diagnoses Diagnosis Preop testing- Primary Preoperative examination, unspecified documented in this encounter Additional Health Concerns Infection Onset Date Last Indicated Resolved Time COVID-19 Rule Out 07/05/2020 07/05/2020 07/07/2020 10:16 PM CDT MRSA Comment:10/11/23 +MRSA Left maxillary sinus 10/11/2023 10/11/2023 documented as of this encounter Care Teams Senior Office Support Assistant Sosa Relationship Specialty Start Date End Date Magdy Alexander MD [address] [address] PCP - General FAMILY PRACTICE 07/05/20 Lukasz Bell MD [address] [place] [address] Physician NEUROMUSCULOSKELETAL MEDICINE 10/28/23 documented as of this encounter
--- OUTSIDE RECORDS SUMMARY | 2024-09-18 14:30 | XMS_ITS | Clinical Summary ---
Author Organization [facility] Address [address] [place] [address] Care Team Providers Care Plunket Nurse Name Role Phone Magdy Alexander MD Primary Care Provider [phone] Lukasz Bell MD Unavailable [phone] Allergies Active Allergy Reactions Criticality Noted Date Comments Hydromorphone Hives,Rash,Nausea an d Vomiting,Nausea Only,Vomiting High 01/06/2023 Terbinafine Rash High 07/01/2021 Medications rosuvastatin 40 MG tablet Take 1 tablet (40 mg total) by mouth nightly at bedtime. Active escitalopram 10 MG tablet Take 1 tablet (10 mg total) by mouth daily. Active HYDROcodone-ac etaminophen 5-325 MG tabletIndicati ons:Chronic Pain Take 1-2 tablets by mouth every [...] total) by mouth nightly at bedtime. Active cyclobenzaprin e (FLEXERIL) 10 MG tablet Take 1 tablet (10 mg total) by mouth. 04/30/19 23 Active fexofenadine (JAS ALLERGY) 180 MG tablet Take 1 tablet (180 mg total) by mouth daily. Active Trolamine Salicylate (ASPERCREME) 10 % Lotion Apply 10 % topically as needed. Active Calcium Carbonate-Jaclyn min D (CALTRATE 600+D OR) Take 600 mg by mouth 2 (two) times daily. Active vitamin B-12 (CYANOCOBALAMI N) (CYANOCOBALAMI N) 1000 mcg tablet Take 1 tablet (1,000 mcg total) by mouth daily. Active clobetasol (TEMOVATE) 0.05 % ointment Apply topically 2 (two) times daily. 05/06/19 24 Active Sodium Chloride-Sodiu m Bicarb (NETI POT SINUS WASH NA) 10/12/19 24 Active lisinopril (PRINIVIL) 40 MG tablet Take 1 tablet (40 mg total) by mouth daily. 02/08/20 24 Active budesonide (PULMICORT) 0.5 MG/2ML nebulizer solution EMPTY 2 VIALS INTO IDS, ADD DISTILLED WATER AND SALINE PACKET, IRRIGATE ONCE DAILY 03/03/19 25 Active Magnesium 400 MG Tab 03/22/19 25 Active rivaroxaban (XARELTO) 2.5 MG tablet Take 1 tablet (2.5 mg total) by mouth 2 (two) times daily. 180 tablet 3 07/18/19 25 Active rOPINIRole (REQUIP) 2 MG tabletIndicati ons:RLS (restless legs syndrome) Take 1 tablet (2 mg total) by mouth nightly at bedtime. 90 tablet 30 08/15/19 25 Active pregabalin (LYRICA) 50 MG capsuleIndicat ions:Neuropath y TAKE 1 CAPSULE(50 MG) BY MOUTH TWICE DAILY 60 capsule 1 08/25/19 25 Active pregabalin (LYRICA) 50 MG capsuleIndicat ions:Neuropath y Take 1 capsule (50 mg total) by mouth 2 (two) times daily. 60 capsule 4 08/29/19 25 Active pregabalin (LYRICA) 50 MG capsuleIndicat ions:Neuropath y Take 1 capsule (50 mg total) by mouth 2 (two) times daily. 60 capsule 4 03/20/19 25 025 Discontinued Active Problems Problem Noted Date Diagnosed Date Anemia 12/01/2023 Neuropathy involving both lower extremities 04/2023 Previous back surgery 12/01/2023 Restless leg syndrome 12/01/2023 Neuropathic pain, leg, bilateral 08/20/2022 Medication side effects 02/19/2022 Muscle cramps 02/19/2022 Disintegration of vascular stent 11/12/2021 GRANT on CPAP 10/17/2021 Pulmonary HTN (CMS/HCC [facility]/HCC) 10/17/2021 Morbid (severe) obesity due to excess calories 0 08/06/2021 Peripheral vascular disease 04/08/2021 Subclavian artery stenosis, left 04/08/2021 Bleeding from the nose 02/14/2021 Mixed hyperlipidemia 01/17/2021 Coronary artery disease invo lving yuhaaviatam coronary artery of yuhaaviatam heart without angina pectoris 05/27/2020 HTN (hypertension), benign 05/27/2020 S/P coronary artery stent placement 05/27/2020 Tobacco abuse 05/27/2020 Mass of breast 07/17/2010 Heart disease 06/10/2002 Encounters Date Type Department Care Team Description 08/28/2024 Telephone [facility] Medical [facility] [place] [address] [place] [address] Lukasz Bell MD Medication 08/27/2024 Results Follow-Up [facility] Multispecialty Care - [address], [address] [place] [address] Lukasz Bell MD BETA AMYLOID 42/40 RATIO S/P/B 08/14/2024 3:25 PM CDT - 08/14/2024 11:59 PM CDT Hospital Encounter [facility] Laboratory [address] [place] [address] Lukasz Bell MD Discharge Disposition: Home or Self Care (Routine Discharge) 08/14/2024 2:20 PM CDT Office Visit [facility] Medical Group Multispecialty Care - [facility] [address] [facility], [address] [place] [address] Lukasz Bell MD Follow Up (Lumbosacral radiculopathy) 08/14/2024 Travel 07/17/2024 12:00 PM CDT Office Visit [facility] [facility] [address] [place] [address] Clarence Rdz MD Coronary Artery Disease (3MO) 07/17/2024 Travel 06/21/2024 MyChart Message Enc [facility] [address] [place] [address] Marlene Black, RANDY-BC Test Results 06/19/2024 Results Follow-Up [facility] n THREE [facility], [address] [place] [address] Janell Cam RN NM PHARM NUC STRESS TEST 1 DAY W TRACING from Last 3 Months Immunizations Immunization Administration Dates Next Due Flucelvax 6 Months+ (Prefill ed Syringe) 12/14/2019,12/30/2018,12/31/2017,2016 Influenza (Generic) 12/30/2012 Influenza Adult (Generic) 02/06/2021,01/22/2016 [...] Tobacco: Never Tobacco Cessation:Ready to Q uit: Yes; Counseling Given: Not Answered Alcohol Use Standard Drinks/Week Comments Not Currently 0 (1 standard drink = 0.6 oz pur e alcohol) Rarely PHQ-2 Answer Date Recorded Patient Health Questionnaire-2 Score 0 03/20/2024 Comments No Sex and Gender Information Value Date Recorded Sex Assigned at Female 04/07/2024 12:11 PM ENTRY LEVEL SALES CONSULTANT Legal Sex Female 11:12 AM CDT Gender Identity Not on file Sexual Orientation Not on file Last Filed Vital Signs Vital Sign Reading Time Taken Comments Blood Pressure 158/80 08/14/2024 3:07 PM CDT Pulse 65 08/14/2024 2:18 PM CDT Temperature 36.8 C (98.3 F) 08/14/2024 2:18 PM CDT Respiratory Rate 12 08/14/2024 2:18 PM CDT Oxygen Saturation 96% 08/14/2024 2:18 PM CDT Inhaled Oxygen Concentration - - Weight 91.6 kg (202 lb) 08/14/2024 2:18 PM CDT Height 165.1 cm (5' 5) 08/14/2024 2:18 PM CDT Body Mass Index 33.61 08/14/2024 2:18 PM CDT Plan of Treatment Upcoming Encounters Date Type Department Care Team (Late st Contact Info) Description 01/29/2025 12:45 PM ENTRY LEVEL SALES CONSULTANT Office Visit [facility] [facility] [address] [facility] [address] [place] [address] Clarence Rdz MD Three [facility] Suite [facility] [place], [place] [id number] 02/05/2025 10:00 AM ENTRY LEVEL SALES CONSULTANT Appointment [facility] [address] [place], [place] [phone] Reyes Villagomez MD Three [facility]. [address] [place] [address] 02/05/2025 11:00 AM ENTRY LEVEL SALES CONSULTANT Appointment [facility] [place] [address] Reyes Villagomez MD Three [facility]. [facility] [address] [place] [address] 02/12/2025 2:00 PM ENTRY LEVEL SALES CONSULTANT Office Visit [facility] Medical Group Multispecialty Care - [facility] [address] [facility], [address] [place] [address] Lukasz Bell MD [address] [place] [address] Health Maintenance Due Date Last Done Comments ASCVD LDL 1962 ASCVD Statin 1962 Colorectal Cancer Screening Colonoscopy (10 Years) 1962 Annual Physical 1965 Hepatitis C 1980 DTaP, Tdap and Td Vaccines ( 1 - Tdap) 1981 Mammogram Screening 2002 Lung Cancer Screening 2012 COVID-19 Vaccine (3 2023-2 5 season) 2023 06/03/2020, 05/12/2020 RSV Immunization or 60+ Years Completed 02/16/2023 Zoster Vaccines Completed 02/16/2023, 12/21/2022 Pneumococcal Vaccine: 50+ Years Completed 06/17/2023, 12/21/2022 PHQ-2 (Physician [place]) Completed 03/20/2024 Meningococcal B Vaccine Aged Out No l onger eligible based on patient's age to complete this topic Meningococcal Vaccine Aged Out No bennett minal eligible based on patient's age to complete this topic RSV Immunizations Under 20 Months Aged Out No longer eligible b ased on patient's age to complete this topic Medical Devices Implanted Type Area Slurry Mixer Device Identifier Shelf Expiration Date Model / Serial / Lot Iol Donaldo Toric [id number] - [id number] Implanted:Qty : 1 on 07/08/2020 by Arnulfo Almodovar MD at [facility] Lens Right: Eye DONALDO - SURGICAL DIV 08/28/2021 [id number] / [id number] / Spine Components Spine Components Spine Lumbar Procedures Procedure Name Priority Date/Time Associated Diagnosis Comments BETA AMYLOID 42/40 RATIO S/P/B Routine 08/14/2024 3:29 PM CDT MCI (mild cognitive impairment) from Last 3 Months Results * BETA AMYLOID 42/40 RATIO S/P/B (08/14/2024 3:29 PM CDT) ABETA 42 S/P/B 43 NOT ESTABLISHED pg/mL 08/25/2024 12:31 PM CDT [facility] 40 S/P/B 241 NOT ESTABLISHED pg/mL 08/25/2024 12:31 PM CDT [facility] ABETA 42/40 RATIO 0.178 > OR = 0.170 08/25 12:31 PM CDT [employer] [facility] Comment: Plasma beta-amyloid 42/40 ratio Risk Table: Risk of Alzheimer's Disease: Lower Risk: > or = 0.170 Intermediate Risk: 0.150 - 0.169 Higher Risk: <0.150 The concentrations on this report only represent wild type Abeta 40 and 42. The variants of Abeta 40 and 42 are not detected in this assay. This test was developed and its analytical performance characteristics have been determined by [employer]. It has not been cleared or approved by the FDA. This assay has been validated pursuant to the CLIA regulations and is used for clinical purposes. Test performed by [email or web address] [id number] [place] [address] Mold Capper Helper: Edith Nicholson MD,PHD,JESSICA Test Reported by [facility], [place], [address] [place], [place] Deshawn Powell M.D., Ph.D., Director of Laboratories , [facility] [id number] 08/14/2024 3:29 PM CDT Lukasz Bell MD LABORATORY Final Res ult [address] [facility] [address] [place] [address], [place] [phone] from Last 3 Months Additional Health Concerns Infection Onset Date Last Indicated MRSA Comment:10/11/23 +MRSA Left maxillary sinus 10/11/2023 10/11/2023 Insurance [facility] MEDICA[facility] Care Teams Plunket Nurse Relationship Specialty Start Date End Date Magdy Alexander MD [address] [place] [address] PCP - General FAMILY PRACTICE 07/05/20 Lukasz Bell MD [address] [place] [address] Physician NEUROMUSCULOSKELETAL MEDICINE 10/28/23
--- OUTSIDE RECORDS SUMMARY | 2024-09-18 14:30 | XMS_ITS | Clinical Summary ---
Author Organization [facility] Address [address] [place] [address] Care Team Providers Care Research Laboratory Manager Name Role Phone Magdy Alexander MD Primary Care Provider + [phone] Allergies Active Allergy Reactions Criticality Noted Date [...] hyperlipidemia 01/17/2021 Coronary artery disease invo lving igiugig coronary artery of igiugig heart without angina pectoris 05/27/2020 HTN (hypertension), [...] Hyperlipidemia Acid indigestion Pneumonia Sleep apnea Claudication PVD (peripheral vascular disease) Depression Anxiety Cardiovascular disease Goiter PONV (postoperative [...] on file Legal 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 Gender Identity Not on file Sexual Orientation [...] Depression Screening 1962 Hepatitis C Screening 1962 DTaP/Tdap/Td Vaccine (1 - Tdap) 1973 Hepatitis B Screening 1980 Regular Well Visit/Exam 18-64 1980 Pneumococcal vaccine <65 (1 of 2 - PCV) 1981 Zoster Vaccine (2 of 3) 11/26/2015 10/01/19 16, 09/10/2015, 08/27/2015, Additional history exists Covid-19 Vaccine (3 - 2023-2 5 season) 2023 06/03/2020, 05/12/2020 Influenza Vaccine (#1) 2024 , 12/14/2019, 12/30/2018, Additional history exists Medical Devices Implanted Type Area Production Cell Leader Device Identifier Shelf Expiration Date Model / Serial / Lot Bard Peripheral Vascular Lifestream 8mm 37mm 80cm Balloon Expandable Low Profile Cover [id number] - [id number] Implanted:Qty: 1 on 07/03/2021 by Jose Bailey MD at [facility] Stent Right: Iliac Bard Peripheral Vascular 10/30/2023 [id number] / / [id number] Bard Peripheral Vascular Lifestream 7mm 37mm 80cm Balloon Expandable Low Profile Cover [id number] - [id number] Implanted:Qty: 1 on 11/27/2021 by Jose Bailey MD at [facility] Bard Peripheral Vascular 04/29/2023 [id number] / / [id number] Mynx Control 6-7fr 2 Mode Balloon Catheter Sealant Lock Syringe [id number] - [id number] Implanted:Qty: 1 on 11/27/2021 by Jose Bailey MD at [facility] [employer] 08/29/2023 [id number] / / [id number] Insurance [facility] MEDICARE ADVANTAGE IDSD [facility] MEDICARE ADVANTAGE IDPA [facility] MEDICARE ADVANTAGE [facility] Address: [address] [address] [place] [address] IDSD Care Teams Research Laboratory Manager Relationship Specialty Start Date End Date Magdy Alexander MD PCP - General 02/17/11
== END 2024-09-18 14:28 | disposition home or self-care (01) ==
PROVIDERS: PCP Family Medicine; Visit Provider Physician Assistant Medical
DX: Z12.2 Encounter for screening for malignant neoplasm of respiratory organs (principal); R91.8 Other nonspecific abnormal finding of lung field; Z87.891 Personal history of nicotine dependence
CPT/HCPCS: 71271

== ENCOUNTER 2024-10-25 10:58 | Outpatient (CLI) | payer MEDICARE, MEDICAID, SELFPAY ==
--- NOTE | ~2024-10-25 | DEXA_ITS ---
Bone Density Report Name: JHONNY MCKEON Age: 64 Sex: Female Ethnicity: White Date of : 1960 Indication: osteopenia; monitoring treatment; height loss; inflammatory bowel disease; prior fracture; hysterectomy; Referring Provider: ROM ESPINO Study: Bone densitometry was performed. Exam Date: October 25, 2024 Accession number: [id number] Bone Density: Region BMD T-score Z-score Classification AP Spine(L1-L4) 0.866 -1.6 -0.1 Osteopenia Femoral Neck (Left) 0.590 -2.3 -1.0 Osteopenia Total Hip (Left) 0.815 -1.0 0.0 Normal Femoral Neck (Right) 0.606 -2.2 -0.8 Osteopenia Total Hip (Right) 0.743 -1.6 -0.6 Osteopenia Total Hip Mean 0.779 -1.3 -0.3 Osteopenia World Health Organization criteria for BMD impression classify patients as: Normal (T-score at or above -1.0), Osteopenia (T-score between -1.0 and -2.5), or Osteoporosis (T-score at or below -2.5). 10-year Fracture Risk: FRAX not reported because: Prior hip or vertebral fracture Treated for osteoporosis Previous Exams: Region Exam Age BMD T-score BMD Change BMD Change Date g/cm2 vs Baseline vs Previous AP Spine (L1-L4) 10/25/2024 64 0.866 -1.6 0.066 (8.3%)* -0.012 (-1.4%) 11/11/2022 62 0.878 -1.5 0.078 (9.8%)* 0.078 (9.8%)* 05/07/2020 59 0.800 -2.2 Total Hip(Left) 10/25/2024 64 0.815 -1.0 0.087 (12.0%)* 0.048 (6.2%)* 11/11/2022 62 0.768 -1.4 0.040 (5.5%)* 0.040 (5.5%)* 05/07/2020 59 0.728 -1.8 Total Hip(Right) 10/25/2024 64 0.743 -1.6 0.114 (18.2%)* 0.017 (2.4%) 11/11/2022 62 0.726 -1.8 0.097 (15.5%)* 0.097 (15.5%)* 05/07/2020 59 0.629 -2.6 *Denotes significance at 95% confidence level, LSC for AP Spine = 0.022 g/cm2, LSC for Total Hip = 0.027 g/cm2 Clinical Information Provided by Patient: Have had a previous hip or vertebral fracture Has had a low trauma fracture Smokes Is being treated for osteoporosis Has used the following medications: Prolia (i.e. denosumab), Vitamin D, Calcium Has the following medical conditions: Inflammatory bowel diseases, Hysterectomy Patient maximum height was 65 Menopause Age: 48 No regular weight bearing exercise Drinks caffeinated beverages Onset of menses at age 14 Number of children 1 Impression: The patient has low bone mass, based on the Left Femoral Neck T-score. The patient has risk factors, including: smoking, previous fracture. No significant bone loss was observed. Discussion: PATIENT UNDER TREATMENT WITH NO SIGNIFICANT BMD LOSS SINCE LAST EXAM. In an untreated patient, BMD typically declines with age. A lack of decline or gain is usually a sign that treatment is efficacious and fracture risk is reduced. It is important to ask patients whether they are taking their medications and to encourage continued and appropriate compliance with their osteoporosis therapies to reduce fracture risk. It is also important to review their risk factors and encourage appropriate calcium and vitamin D intakes, exercise, fall prevention and other lifestyle measures. Follow-Up: Consider a repeat BMD and Vertebral Fracture Assessment (VFA) exam in 2 years or sooner if medically necessary, to reassess this patient's status. Reported by: IRENE on 10/25/2024 11:35:00 AM. Reviewed, dictated and finalized at location A.
--- OUTSIDE RECORDS SUMMARY | 2024-10-25 11:24 | XMS_ITS | Clinical Summary ---
Author Organization [facility] Fito Holman Address [address] [place] [address] Care Team Providers Care Roll Bucker Name Role Phone Magdy Alexander MD Primary Care Provider [phone] Allergies Active Allergy Reactions Criticality Noted Date [...] Encounters Date Type Department Care Team Description 10/03/2024 External Device Data STL ABSTRACTION Provider, Abstract 10/02/2024 Orders Only [facility] Oncology and Hematology - Jesus Manuel [address] [place] [id number] Reese Sexton MD Osteopenia of multiple sites (Primary Dx) 08/22/2024 External Device Data STL ABSTRACTION Provider, Abstract 08/22/2024 Orders Only [facility] Oncology and Hematology - Jesus Manuel [address] [place] [phone] Reese Sexton MD 08/21/2024 Orders Only [facility] Oncology and Hematology - Jesus Manuel [address] [place] [address] Reese Sexton MD 07/25/2024 External Device Data [...] 162.6 cm (5' 4) 01/06/2023 2:59 PM TELEPHONE LINEMAN Body Mass Index 35.19 01/06/2023 2:59 PM TELEPHONE LINEMAN Plan of Treatment Health Maintenance Due Date [...] WITH DIFFERENTIAL (08/15/2024 4:28 PM CDT) Blood us Reese Sexton MD HEMATOLOGY ORDERABLES Final Res ult from Last 3 Months Insurance [facility] [id number] MEDICAID [place] Care Teams Roll Bucker Relationship Specialty Start Date End Date Magdy Alexander MD [address] [place] [address] PCP - General Family Practice 01/06/23
--- OUTSIDE RECORDS SUMMARY | 2024-10-25 11:24 | XMS_ITS | Encounter Summary ---
Author Organization [facility] Address [address] [place] [address] Care Team Providers Care Metal Numerical Control Programmer Name Role Phone Unavailable Primary Care Provider Unavailabl e Encounter Details Date Type Department Care Team (Late st Contact Info) Description 02/04/2023 Lab Requisition [facility] - DermPath Lab [address] [place] [phone] Jose Toussaint MD [facility] DERMATOLOGY [address] [place] [phone] Malignant melanoma of other part of trunk Social History Tobacco Use Types Packs/Day Years Used Date Smoking Tobacco: Never Assessed Comments Unknown Sex and Gender Information Value Date Recorded Sex Assigned at Not on file Legal Sex Female 6:27 AM AIR CARRIER INSPECTOR Gender Identity Not on file Sexual Orientation Not on file documented as of this encounter Plan of Treatment Not on file documented as of this encounter Procedures Procedure Name Priority Date/Time Associated Diagnosis Comments DERMATOPATHOLOGY Routine 02/04/2023 3:33 AM AIR CARRIER INSPECTOR Malignant melanoma of other part of trunk ([facility]) documented in this encounter Results * DERMATOPATHOLOGY (02/04/2023 3:33 AM AIR CARRIER INSPECTOR) Case Report Dermatopathology Report Case: [id number] Authorizing Provider: Jose Toussaint MD Collected: 02/04/2023 03:33 AM Ordering Location: [facility] DermPath Lab Received: 02/05/2023 12:19 PM Pathologist: Chelsey Alaniz MD Specimen: Skin, left superior medial mid back 11:35 AM AIR CARRIER INSPECTOR DERMATOPATHOLOGY LABORATORY Final Diagnosis Specimen A. SKIN, left superior medial mid back: DERMAL SCAR RESIDUAL MELANOMA NOT IDENTIFIED (L90.5) 3 11:35 AM [facility] DERMATOPATHOLOGY LABORATORY at [address] AIR CARRIER INSPECTOR Clinical History Melanoma 3 11:35 AM [facility] DERMATOPATHOLOGY LABORATORY Gross Description Specimen A: Received is one formalin filled container labeled with the patient's name and designated left superior medial mid back. The specimen consists of a non-oriented ellipse of skin measuring [id number] mm. Medially divided due to size inked red. Also, there a lesion measuring 13x9 mm. The margin is inked green. The 12 o'clock and 6 o'clock tips are submitted in cassette 1. The remainder of the ellipse is serially sectioned and submitted in cassette 2 - 12 clock face. Jar 0. 3 11:35 AM [facility] DERMATOPATHOLOGY LABORATORY Microscopic Description Specimen A. SKIN, left superior medial mid back: There are fibroblasts and collagen bundles oriented parallel to the skin surface. There are elongated blood vessels, some of which are oriented perpendicular to the skin surface. No residual melanoma is identified. 3 11:35 AM [facility] DERMATOPATHOLOGY LABORATORY Disclaimer An external and internal positive and negative controls are appropriate for the histochemical, immunohistochemical and immunofluorescence stain(s) in this case (if any), except where stated explicitly. The performance characteristics of the stain(s) cited in this report were developed and its performance characteristic determined by the Dermatopathology Laboratory at [facility], directed by Dr. Yann Blunt. These tests need not be, and therefore are not, approved by the [place] Food and Drug Administration. The tests are used for clinical purposes. Billing Codes Specimen Charges Stain Charges 12705 1 3 11:35 AM [facility] DERMATOPATHOLOGY LABORATORY Embedded Images 3 11:35 AM [facility] DERMATOPATHOLOGY LABORATORY Pathology/Cytolo gy TISSUE SPECIMEN FROM SKIN / Unknown 02/04/2023 3:33 AM AIR CARRIER INSPECTOR 02/05/2023 12:19 PM AIR CARRIER INSPECTOR us Jose Toussaint MD LAB - PATHOLOGY/CYTOLOGY JIAE LINSEY Final Result DERMATOPATHOLOGY LABORATORY [facility] - Department of Dermatology [facility] [address] [facility], [address] [phone] documented in this encounter Visit Diagnoses Diagnosis 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
--- OUTSIDE RECORDS SUMMARY | 2024-10-25 11:24 | XMS_ITS | Clinical Summary ---
Author Organization [facility] Address [address] [place] [address] Care Team Providers Care Scheduling Specialist Name Role Phone Magdy Alexander MD Primary Care Provider [phone] Allergies Active Allergy Reactions Criticality Noted Date [...] total) by mouth daily 30 tablet 11 4 Active spironolactone (ALDACTONE) 25 mg tablet Take 1 tablet (25 mg total) by mouth daily 30 tablet 4 Active rosuvastatin (CRESTOR) 40 mg tablet TAKE [...] hyperlipidemia 01/17/2021 Coronary artery disease invo [place]ving [place] coronary artery of [place] heart without angina pectoris 05/27/2020 HTN (hypertension), [...] on file 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 Gender Identity Not on file Sexual Orientation [...] history exists Medical Devices Implanted Type Area Arborist Climber Device Identifier Shelf Expiration Date Model / Serial / Lot [employer] Peripheral Vascular Lifestream 8mm 37mm 80cm Balloon Expandable Low Profile Cover [id number] - [id number] Implanted:Qty: 1 on 07/03/2021 by Jose Bailey MD at [facility] Stent Right: Iliac [employer] Per[employer] 10/30/2023 [id number] / / [id number] [employer] Peripheral [employer]ascular Lifestream 7mm 37mm 80cm Balloon Expandable Low Profile Cover [id number] - [id number] Implanted:Qty: 1 on 11/27/2021 by Jose Bailey MD at [facility] [employer] Peripheral Vascular 04/29/2023 [id number] / / [id number] Mynx Control 6-7fr 2 Mode Balloon Catheter Sealant Lock Syringe [id number] - [id number] Implanted:Qty: 1 on 11/27/2021 by Jose Bailey MD at [facility] [employer] 08/29/2023 [id number] / / [id number] Insurance [facility] MEDICARE ADVANTAGE IDPA [facility] MEDICARE ADVANTAGE IDPA [facility] MEDICARE ADVANTAGE [id number] Care Teams Scheduling Specialist Relationship Specialty Start Date End Date Magdy Alexander MD PCP - General 02/17/11
--- OUTSIDE RECORDS SUMMARY | 2024-10-25 11:25 | XMS_ITS | Clinical Summary ---
Author Organization [facility] Address [address] [place] [address] Care Team Providers Care Systems Support Officer Name Role Phone Unavailable Primary Care Provider Unavailabl e Source Comments [facility],non-owned Affiliates and Associated Physician Practices is amultiple site organization consisting of ambulatory clinics and hospital sitesin [place], [place] and [place]. This disclosure is being madepursuant to the Care Everywhere program and may not contain all information available regarding this patient. 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
== END 2024-10-25 10:59 | disposition home or self-care (01) ==
LOC: ANHFOHIMG 10:59
PROVIDERS: PCP Family Medicine; Visit Provider Internal Medicine Hematology & Oncology
DX: M85.89 Other specified disorders of bone density and structure, multiple sites (principal)
CPT/HCPCS: 77080